=== PATIENT | male | born 1945 | race Caucasian/White ===

== ENCOUNTER 2019-04-27 12:35 | Day surgery (SDC) | payer MEDICARE ==
[~2019-04-27] VITALS: Ht 188 cm; Wt 108.9 kg
[~2019-04-27 12:35] MED LIST: ATOR10TA66 PO; ENAL20TA PO; FAMO20TA3 PO; HYDR12.56 PO; LORA10TA7 PO; OMEP20CA12 PO; [UNRECOGNIZED DRUG - CODE] PO
[2019-04-27 12:40] VITALS: BP 154/93
[2019-04-27] MEDS ORDERED: NS IV 500 ML 500 ML ONE (12:40)
[2019-04-27] MEDS ORDERED: NS IV 500 ML 500 ML IV PRN (12:42)
[2019-04-27] MEDS ORDERED: LIDOCAINE JELLY 2% 6 ML SYRINGE MM PRN (12:45)
[2019-04-27] MEDS ORDERED: fentaNYL INJECTION 100 MCG/2 ML AMP IVP ONE (12:45)
--- NOTE | 2019-04-27 12:50 | Conscious Sedation/ASA ---
Conscious Sedation Pre-Proced Time 12:30 ASA Score 2 For ASA 3 and 4: Consider anesthesia and medical clearance. Also, for patients with a history of failed moderate sedation consider anesthesia. Airway Lungs Heart ASA score ASA 1: a normal healthy patient ASA 2: a patient with a mild systemic disease (mid diabetes, controlled hypertension, obesity ASA 3: a patient with a severe systemic disease that limits activity (angina, COPD, prior Myocardial infarction) ASA 4: a patient with an incapacitating disease that is a constant threat to life (CHF, renal failure) ASA 5: a moribund patient not expected to survive 24 hrs. (ruptured aneurysm) ASA 6: a declared brain- patient whose organs are being harvested. For emergent operations, add the letter E after the classification Mallampati Classification Grade 2 Sedation Plan Analgesia, Amnesia, Plan communicated to team members, Discussed options with patient/fam, Discussed risks with patient/fam The patient is an appropriate candidate to undergo the planned procedure, sedation, and anesthesia. The patient immediately re-assessed prior to indication. LAUREN ERWIN MD Apr 27, 2019 12:50
--- NOTE | 2019-04-27 12:51 | Progress Note-Pre Operative ---
Pre-Operative Progress Note H&P Reviewed The H&P was reviewed, patient examined and no changes noted. Date Seen by Provider: Apr 27, 2019 Time Seen by Provider: 12:30 Date H&P Reviewed: Apr 27, 2019 Time H&P Reviewed: 12:30 Pre-Operative Diagnosis: screening o LAUREN ERWIN MD Apr 27, 2019 12:51
--- NOTE | 2019-04-27 12:53 | Discharge Inst-Surgical ---
D/C Lap Instructions-KIDO New, Converted, or Re-Newed RX: RX on Chart Follow Up Activity as tolerated High Fiber Diet 25g or more per day Avoid Alcohol, Caffeine, Spicy [place] and Acid foods. Drink 64 fluid oz or more of fluids per day. Symptoms to Report: Fever over 101 degree F, Nausea/Vomiting If any problems/questions: Contact your physician or go to Emergency Room LAUREN ERWIN MD Apr 27, 2019 12:53
[2019-04-27] MEDS ORDERED: HYDROcodone/APAP 5 MG/325 MG (LORTAB) TAB PO PRN (13:00)
[2019-04-27] MEDS ORDERED: morphine INJ 10 MG/ML 1ML (SYR OR VIAL) IVP PRN ×2 (13:00)
[2019-04-27] MEDS ORDERED: ONDANSETRON 4 MG/2 ML (SDV) Z0FRAN IVP PRN (13:00)
[2019-04-27] MEDS ORDERED: ACETAMINOPHEN 325 MG TABLET PO PRN (13:00)
[2019-04-27] MEDS ORDERED: MIDAZOLAM 2 MG/2 ML (VERSED) VIAL ONE ×5 (14:02→15:02)
[2019-04-27] MEDS ORDERED: fentaNYL INJECTION 100 MCG/2 ML AMP ONE (14:02)
[2019-04-27] MEDS ORDERED: LIDOCAINE JELLY 2% 6 ML SYRINGE ONE (14:03)
[2019-04-27] MEDS: MIDAZOLAM 2 MG/2 ML (VERSED) VIAL IVP ONE ×2 (14:40→14:55)
[2019-04-27 15:51] VITALS: BP 143/74
[2019-04-27 16:00] VITALS: BP 137/73
--- NOTE | 2019-04-27 16:11 | Progress Note-Post Operative ---
Post-Operative Progess Note Surgeon (s)/Ice Platform Supervisor (s) Surgeon LAUREN ERWIN MD Ice Platform Supervisor: none Pre-Operative Diagnosis screening colo Post-Operative Diagnosis mild chronic stage 2 ext and int hemorrhoids. Procedure & Operative Findings Date of Procedure 04/27/19 Procedure Performed/Findings colonoscopy Anesthesia Type cs Estimated Blood Loss Estimated blood loss (mL): minimal Specimens/Packing Specimens Removed none LAUREN ERWIN MD Apr 27, 2019 16:11
--- NOTE | 2019-04-28 00:07 | OPERATIVE REPORT ---
DATE OF SERVICE: 04/27/2019 ATTENDING PRIMARY CARE PHYSICIAN: Dr. Ritu Vincent. PREOPERATIVE DIAGNOSIS: Left lower quadrant abdominal pain. POSTOPERATIVE DIAGNOSES: Mild, chronic stage II external and internal hemorrhoids, slightly enlarged prostate gland. No palpable masses or nodules. There was a relatively poor prep; however, with irrigation, we were able to identify the majority of the colon. There were no polyps or any neoplasms identified as well as no mucosal inflammatory changes. PROCEDURE: Colonoscopy. SURGEON: Lauren Erwin MD ANESTHESIA: Conscious sedation. ESTIMATED BLOOD LOSS: Minimal. FINDINGS: Mild, chronic stage II external and internal hemorrhoids, slightly enlarged prostate gland. No palpable masses or nodules. There was a relatively poor prep; however, with irrigation, we were able to identify the majority of the colon. There were no polyps or any neoplasms identified as well as no mucosal inflammatory changes. DISPOSITION: The patient tolerated the procedure well. INDICATIONS: The patient is a 73-year-old male in need of a colonoscopy. His last colonoscopy was 10 years ago and he believes this to be normal. He does report that he has had some symptoms including left lower quadrant abdominal pain, which is exacerbated by movement such is sitting for long periods of time as well as exercise. He believes that this has been occurring for the past 6 months. He does not report any red blood per rectum nor any dark tarry stools. He does report some occasional constipation as well as hard well-formed stools. DESCRIPTION OF PROCEDURE: The patient was brought to the endoscopy suite, laid in the left lateral decubitus position. After adequate IV pain and sedative medications and conscious sedation anesthesia, a digital rectal examination was performed. Mild, chronic stage II external and internal hemorrhoids were identified, which are not actively edematous nor inflamed and no bleeding. Normal sphincter tone was felt and no palpable masses. Prostate gland was palpable and appeared slightly enlarged; however, no masses or nodules. The endoscope was then intubated to the anus and rectum gently insufflated. The endoscope was then advanced through the sigmoid colon where no diverticulosis identified. There was also no mucosal inflammatory change to indicate any inflammatory bowel disease. The endoscope was then advanced to the remainder of the descending, transverse and ascending colon to the cecum. These segments were normal. The endoscope was then slowly withdrawn while taking a second look and suctioning residual air with no additional findings. The patient tolerated the procedure well. We will recommend necessary lifestyle and diet accommodation including incorporation of a high fiber diet with at least 30 grams of fiber per day as well as significant amounts of water to promote soft stools on a daily basis. We feel that the majority of his lower abdominal crampy pain is due to constipation and abdominal distention related to this. With softer stools and evacuation of colon and less pressure exerted within the sigmoid colon and rectum. He should have symptomatic relief. No polyps identified and he does not need another colonoscopy for another 10 years; however, sooner if he becomes symptomatic. Job ID: [id number] DocumentID: [id number] Dictated Date: 04/27/2019 15:22:23 Concrete Vault Maker Date: 04/28/2019 00:06:34 Dictated By: LAUREN ERWIN MD
== END 2019-04-27 16:30 | disposition home or self-care (01) ==
LOC: ENDO 12:35
PROVIDERS: ATTEND Surgery
DX: K64.1 Second degree hemorrhoids (principal); N40.0 Benign prostatic hyperplasia without lower urinary tract symptoms

== ENCOUNTER → 2019-08-08 | Outpatient (CLI) | payer MEDICARE ==
[~2019-08-08] MED LIST changes: -OMEP20CA12 PO; +OMEP20CA13 PO
--- NOTE | 2019-08-08 08:40 | Diagnostic Imaging Report ---
PROCEDURE: US Hepatic (Liver). TECHNIQUE: Multiple real-time grayscale images were obtained over the right upper quadrant in various projections. INDICATION: Elevated liver enzymes. COMPARISON: None. TECHNIQUE: Grayscale and Doppler ultrasound performed in the right upper quadrant of the abdomen to evaluate the liver and gallbladder. FINDINGS: The liver is normal in size and shape. The liver echogenicity is increased. There are no focal lesions. No intrahepatic biliary dilatation is present. The common bile duct is not dilated and measures 4 mm. The main portal vein is hepatopedal. There is no evidence of cholelithiasis, gallbladder wall thickening or pericholecystic fluid. Sonographic Julian's sign is negative. The visualized portion of the head of the pancreas are within normal limits. The body and tail of the pancreas are not well visualized due to overlying bowel gas. The right kidney measures approximately 11.3 cm in length and demonstrates multiple simple appearing cysts, the largest measuring up to 3.5 cm. There is no hydronephrosis. IMPRESSION: 1. Hepatic steatosis. No focal liver lesions seen. 2. Normal-appearing gallbladder. 3. Simple appearing right renal cysts. Dictated by: Dictated on workstation # [id number]
== END ==
LOC: RAD 07:42
PROVIDERS: ATTEND Nurse Practitioner Family
DX: K76.0 Fatty (change of) liver, not elsewhere classified (principal); N28.1 Cyst of kidney, acquired
CPT/HCPCS: 76705

== ENCOUNTER 2020-03-05 06:59 | Outpatient (RCR) | payer MEDICARE | END 2020-06-03 | LOC: FS 06:59 | PROVIDERS: ATTEND Family Medicine | DX: Z02.89 Encounter for other administrative examinations (principal) ==

== ENCOUNTER → 2020-03-05 | Outpatient (CLI) | payer MEDICARE ==
[~2020-03-05] MED LIST changes: -OMEP20CA13 PO; +OMEP20CA18 PO
== END ==
LOC: LAB FS 09:08
PROVIDERS: ATTEND Family Medicine
DX: E78.5 Hyperlipidemia, unspecified (principal)

== ENCOUNTER → 2020-06-28 | Outpatient (CLI) | payer MEDICARE ==
--- NOTE | 2020-06-28 09:52 | Diagnostic Imaging Report ---
PROCEDURE: CT head without contrast. TECHNIQUE: Multiple contiguous axial images were obtained through the brain without the use of intravenous contrast. Auto Exposure Controls were utilized during the CT exam to meet ALARA standards for radiation dose reduction. INDICATION: Left-sided facial droop for 6 days. No prior studies are available for comparison. Ventricles and sulci are prominent consistent with cerebral atrophy. No sulcal effacement or midline shift is detected. No acute intra-axial or extra-axial hemorrhage is detected. Cisterns are patent. The visualized paranasal sinuses demonstrate mucosal thickening involving multiple ethmoid air cells as well as the frontal sinus and right maxillary sinus. IMPRESSION: 1. Age-related atrophy. No acute intracranial process is detected. 2. Paranasal sinus mucosal disease. Dictated by: Dictated on workstation # [id number]
== END ==
LOC: RAD FS 08:57
PROVIDERS: ATTEND Family Medicine
DX: J32.9 Chronic sinusitis, unspecified (principal); R29.810 Facial weakness
CPT/HCPCS: 70450

== ENCOUNTER → 2020-09-06 | Outpatient (CLI) | payer MEDICARE ==
[~2020-09-06] MED LIST changes: -ENAL20TA PO; +ENAL20TA16 PO
[2020-09-06 08:38] LABS: CHLORIDE 104 MMOL/L (98-107); POTASSIUM 4.2 MMOL/L (3.6-5.0); SODIUM 141 MMOL/L (135-145)
[2020-09-06 08:39] LABS: ALANINE AMINOTRANSFERASE 28 U/L (0-55); ALBUMIN 4.2 GM/DL (3.2-4.5); ALKALINE PHOSPHATASE 57 U/L (40-136); BILIRUBIN,TOTAL 1.4 MG/DL (0.1-1.0); BUN/CREATININE RATIO 23; CALCIUM 9.4 MG/DL (8.5-10.1); CARBON DIOXIDE 27 MMOL/L (21-32); CREATININE SERUM 1.01 MG/DL (0.60-1.30); GFR ESTIMATED > 60; GLUCOSE 114 MG/DL (70-105)
[2020-09-06 15:17] LABS: CHOLESTEROL 125 MG/DL (< 200); HDL CHOLESTEROL 33 MG/DL (40-60); TRIGLYCERIDES 142 MG/DL (<150); VLDL CHOLESTEROL 28 MG/DL (5-40)
== END ==
LOC: LAB FS 07:44
PROVIDERS: ATTEND Family Medicine
DX: E78.5 Hyperlipidemia, unspecified (principal)
CPT/HCPCS: 36415; 80053; 80061

== ENCOUNTER → 2021-03-18 | Outpatient (CLI) | payer MEDICARE ==
[2021-03-18 08:40] LABS: ALANINE AMINOTRANSFERASE 27 U/L (0-55); ALKALINE PHOSPHATASE 63 U/L (40-136); BILIRUBIN,TOTAL 1.7 MG/DL (0.1-1.0); BUN/CREATININE RATIO 22; CALCIUM 9.2 MG/DL (8.5-10.1); CARBON DIOXIDE 26 MMOL/L (21-32); CHLORIDE 102 MMOL/L (98-107); CREATININE SERUM 0.99 MG/DL (0.60-1.30); GFR ESTIMATED > 60; GLUCOSE 110 MG/DL (70-105); POTASSIUM 4.2 MMOL/L (3.6-5.0); SODIUM 140 MMOL/L (135-145); TOTAL PROTEIN 7.1 GM/DL (6.4-8.2)
[2021-03-18 15:07] LABS: CHOLESTEROL 125 MG/DL (< 200); HDL CHOLESTEROL 36 MG/DL (40-60); TRIGLYCERIDES 116 MG/DL (<150); VLDL CHOLESTEROL 23 MG/DL (5-40)
== END ==
LOC: LAB FS 07:24
PROVIDERS: ATTEND Family Medicine
DX: E78.5 Hyperlipidemia, unspecified (principal)
CPT/HCPCS: 36415; 80053; 80061

== ENCOUNTER → 2021-03-25 | Outpatient (CLI) | payer MEDICARE ==
--- NOTE | 2021-03-25 09:59 | Diagnostic Imaging Report ---
INDICATION: ABNORMAL RESULTS OF LIVER FUNCTION TECHNIQUE: Multiple grayscale sonographic images were obtained of the right upper quadrant of the abdomen. CORRELATION STUDY: None FINDINGS: LIVER: There is increased echotexture within the visualized portions of the liver. There is normal, hepatopedal direction of flow within the main portal vein. Liver length 18 cm. GALLBLADDER: The gallbladder demonstrates no definitive shadowing gallstones. No abnormal gallbladder wall thickening or pericholecystic fluid. COMMON BILE DUCT: Largely obscured by overlying bowel gas. No overt bile duct dilatation. PANCREAS: Largely obscured by overlying bowel gas. AORTA/IVC: Not well visualized. RIGHT KIDNEY: 12.3 x 6.7 x 7.2 cm. Multiple hypoechoic masses compatible with cysts. Largest at 3.2 x 2.9 x 2.5 cm. OTHER: None. IMPRESSION: 1. Likely hepatic steatosis. 2. Multiple right renal cysts. Dictated by: Dictated on workstation # [id number]
== END ==
LOC: RAD FS 08:33
PROVIDERS: ATTEND Family Medicine
DX: K76.0 Fatty (change of) liver, not elsewhere classified (principal); N28.1 Cyst of kidney, acquired; R94.5 Abnormal results of liver function studies
CPT/HCPCS: 76705

== ENCOUNTER → 2021-04-25 | Outpatient (CLI) | payer MEDICARE ==
[2021-04-25 07:48] LABS: HEMATOCRIT 45 % (40-54); MEAN CORPUSCULAR HEMOGLOBIN 31 PG (25-34); MEAN CORPUSCULAR VOLUME 93 FL (80-99); WHITE BLOOD COUNT 9.4 10^3/uL (4.3-11.0)
[2021-04-25 07:49] LABS: BASOPHILS # (AUTO) 0.1 10^3/uL (0.0-0.1); BASOPHILS % (AUTO) 1 % (0-10); EOSINOPHILS # (AUTO) 0.5 10^3/uL (0.0-0.3); EOSINOPHILS % (AUTO) 5 % (0-10); LYMPHOCYTES # (AUTO) 2.7 X 10^3 (1.0-4.0); LYMPHOCYTES % (AUTO) 29 % (12-44); MEAN CORPUSCULAR HGB CONC 33 G/DL (32-36); MEAN PLATELET VOLUME 9.2 FL (7.4-10.4); MONOCYTES # (AUTO) 0.9 X 10^3 (0.0-1.0); MONOCYTES % (AUTO) 10 % (0-12); NEUTROPHILS # (AUTO) 5.2 X 10^3 (1.8-7.8); NEUTROPHILS % (AUTO) 55 % (42-75); PLATELET COUNT 192 10^3/uL (130-400)
[2021-04-25 08:15] LABS: ALBUMIN 3.9 GM/DL (3.2-4.5); BILIRUBIN,DIRECT 0.2 MG/DL (0.0-0.3); BILIRUBIN,TOTAL 1.2 MG/DL (0.1-1.0); TOTAL PROTEIN 6.8 GM/DL (6.4-8.2)
== END ==
LOC: LAB FS 07:26
PROVIDERS: ATTEND Family Medicine
DX: R94.5 Abnormal results of liver function studies (principal)
CPT/HCPCS: 36415; 80076; 85025

== ENCOUNTER → 2021-05-28 | Outpatient (CLI) | payer MEDICARE ==
--- NOTE | 2021-05-28 14:15 | Diagnostic Imaging Report ---
Indication: Left knee pain 3 views of the left knee shows no fracture, dislocation or other acute abnormality. There is narrowing of the medial compartment with minimal spurring medially. There is mild narrowing and moderate spurring of the patella. There is a small effusion. IMPRESSION: There are [id number] degenerative changes present with no acute bony abnormality seen. Dictated by: Dictated on workstation # [id number]
== END ==
LOC: RAD FS 13:06
PROVIDERS: ATTEND Nurse Practitioner
DX: M17.12 Unilateral primary osteoarthritis, left knee (principal)
CPT/HCPCS: 73562

== ENCOUNTER → 2021-09-09 | Outpatient (CLI) | payer MEDICARE | LOC: LAB FS 07:40 | PROVIDERS: ATTEND Family Medicine | DX: Z53.9 Procedure and treatment not carried out, unspecified reason (principal) ==

== ENCOUNTER → 2022-04-01 | Outpatient (CLI) | payer MEDICARE ==
[2022-04-01 09:33] LABS: POTASSIUM 4.1 MMOL/L (3.6-5.0)
[2022-04-01 09:34] LABS: ALBUMIN 4.1 GM/DL (3.2-4.5); BILIRUBIN,TOTAL 1.8 MG/DL (0.1-1.0); CALCIUM 9.2 MG/DL (8.5-10.1); CREATININE SERUM 0.99 MG/DL (0.60-1.30)
== END ==
LOC: LAB FS 07:30
PROVIDERS: ATTEND Family Medicine
DX: E78.5 Hyperlipidemia, unspecified (principal); I10 Essential (primary) hypertension
CPT/HCPCS: 36415; 80053; 80061

== ENCOUNTER → 2022-09-26 | Outpatient (CLI) | payer MEDICARE ==
[2022-09-26 09:30] LABS: CREATININE SERUM 1.07 MG/DL (0.60-1.30); POTASSIUM 4.1 MMOL/L (3.6-5.0)
[2022-09-26 09:31] LABS: ALBUMIN 3.9 GM/DL (3.2-4.5); BILIRUBIN,TOTAL 1.2 MG/DL (0.1-1.0); CALCIUM 9.1 MG/DL (8.5-10.1); TOTAL PROTEIN 7.3 GM/DL (6.4-8.2)
== END ==
LOC: LAB FS 08:40
PROVIDERS: ATTEND Family Medicine
DX: E78.5 Hyperlipidemia, unspecified (principal)
CPT/HCPCS: 36415; 80053; 80061

== ENCOUNTER 2023-08-21 10:00 | Inpatient (IN) | payer MEDICARE ==
[~2023-08-21] VITALS: Ht 185.5 cm; Wt 106.8 kg
[~2023-08-21 10:00] MED LIST changes: +ENAL-70 PO; -ENAL20TA16 PO; +FAMO-356 PO; -FAMO20TA3 PO
--- OUTSIDE RECORDS SUMMARY | 2023-08-21 11:42 | XMS REPORT | Clinical Summary ---
Author Author [facility] Organization [facility] Address Unknown Phone Unavailable Care Team Providers Care Steeple Jack Name Role Phone Efra Echevarria MD Unavailable Unavailable Efra Echevarria MD PCP Unavailable Source Comments Some departments are not documenting in the electronic medical record. If you do not see the information that you expected, contact Release of Information in the Health Information Management department at [phone] for further assistance in locating additional records.[facility] Allergies No known active allergies Medications Medication Sig Dispensed Refills Start Date End Date Status dplul-6s-nds-epa-fish oil-D3 (FISH OIL-VIT D3) 360 mg-1,200 mg -1,000 unit cap Take by mouth. 0 Acti ve enalapril (VASOTEC) 20 mg tablet Take 20 mg by mouth daily. [address](+) (PRILOSEC) 20 mg capsule Take 20 mg by mouth daily. 0 Active famotidine (PEPCID) 20 mg tablet Take 20 mg by mouth twice daily. 0 Active brimonidine (ALPHAGAN P) 0.15 % ophthalmic solution 1 Drop twice daily. 0 Active simvastatin (ZOCOR) 40 mg tablet Take 20 mg by mouth at bedtime daily. 0 Active loratadine (CLARITIN) 10 mg tablet Take 10 mg by mouth daily. 0 Active finasteride (PROSCAR) 5 mg tablet Take 5 mg by mouth daily. 0 Active Active Problems Problem Noted Date Diagnosed Date Back pain 02/02/2015 Medical History Medical History Date Comments Convulsion (HCC) Arthritis Hearing problem Stomach problems Back pain Family History Medical History Relation Name Comments Heart Disease Father Cancer Mother Relation Name Status Comments Father Mother Social History Tobacco Use Types Packs/Day Years Used Date Smoking Tobacco: Former Alcohol Use Standard Drinks/Week Comments Yes 0 (1 standard drink = 0.6 oz pur e alcohol) Sex and Gender Information Value Date Recorded Sex Assigned at Not on file Gender Identity Not on file Sexual Orientation Not on file Obstetrics History Last Filed Vital Signs Vital Sign Reading Time Taken Comments Blood Pressure 143/89 02/02/2015 9:48 AM CDT Pulse 86 02/02/2015 9:48 AM CDT Temperature 36.3 C (97.4 F) 02/02/2015 9:48 AM C DT Respiratory Rate 16 02/02/2015 9:48 AM CDT Oxygen Saturation - - Inhaled Oxygen Concentration - - Weight 99.2 kg (218 lb 9.6 oz) 02/02/2015 9:48 AM CDT Height 185.4 cm (6' 1") 02/02/2015 9:48 AM CDT Body Mass Index 28.84 02/02/2015 9:48 AM CDT Plan of Treatment Health Maintenance Due Date Last Done Comments MEDICARE ANNUAL WELLNESS VISIT 1945 COVID-19 VACCINE (#1) 02[birth year]18/1946 DTAP/TDAP VACCINES (1 - Tdap) 1961 HEPATITIS C SCREENING 1961 PHYSICAL (COMPREHENSIVE) EXAM 1961 SHINGLES RECOMBINANT VACCINE (1 of 2) 1993 PNEUMOCOCCAL VACCINE 65+ YRS (1 - PCV) 2008 ADVANCE CARE PLANNING DISCUSSION AND DOCUMENTATION 11/2022 DEPRESSION SCREENING 11/02/2022 INFLUENZA VACCINE (#1) 2023 Care Teams Steeple Jack Relationship Specialty Start Date End Date Efra Echevarria MD PCP - General Gastroenterology 07/10/14 Efra Echevarria MD Gastroenterology 06/30/14
--- OUTSIDE RECORDS SUMMARY | 2023-08-21 11:42 | XMS REPORT | Summary of Care ---
Author Author [place]. com[employer] 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 PT NEEDS TO BE SCHEDULED ON A DAY WHEN AW/MP ARE HERE TOGETHER-DIFF PT Mary Sánchez ARNP [place] [address] [facility] [address] [place] [address] Referral ID Status Reason Start Date Expiration Date V isits Requested Visits Authorized [id number] Closed [facility] to Schedule 07/13/2023 08/12/2024 1 1 Reason for Visit * MRI (Routine) - Closed Specialty Diagnoses / Procedures Referred By Contac t Referred To Contact Radiology Diagnoses Lumbar pain Chronic bilateral low back pain, unspecified whether sciatica present Lumbar radiculopathy DDD (degenerative disc disease), lumbar Procedures MRI LUMBAR WO CONTRAST LVM FOR JARROD WRIGHT TO CALL US BACK TO SCHEDULE. PT NEEDS TO BE SCHEDULED ON A DAY WHEN AW/MP ARE HERE TOGETHER-DIFF PT Mary Sánchez ARNP [address] [place] [address] [facility] [place] [address] [place] [address] Referral ID Status Reason Start Date Expiration Date V isits Requested Visits Authorized [id number] Closed [facility] to Schedule 07/13/2023 08/12/2024 1 1 Encounter Details Date Type Department Care Team Description 08/05/2023 9:49 AM CDT - 08/05/2023 11:59 PM CDT Hospital Encounter [facility] Imaging Services [place] [address] [phone] Mary Sánchez ARNP [address] [place] [address] Arrived Discharge Disposition: Home or Self Care Allergies No known active allergiesdocumented as of this encounter (statuses as of 08/06/2023) Medications Medication Sig Dispensed Refills Start Date End Date Status fexofenadine (SHAD) 180 mg tablet Take 180 mg by mouth daily. 0 09/08/2018 Active atorvastatin (LIPITOR) 10 mg tablet TAKE 1 TABLET BY MOUTH ONCE DAILY LATE IN THE DAY 30 Tablet 5 07/09/2018 Active fluticasone propionate (FLONASE) 50 mcg/spray [place], Suspension nasal inhaler USE 2 SPRAY(S) IN EACH NOSTRIL ONCE DAILY 16 Gram 5 11/09/2018 Active simvastatin (ZOCOR) 40 mg tablet Take 20 mg by mouth. 0 Acti ve loratadine (CLARITIN) 10 mg tablet Take 10 mg by mouth daily. 0 Active finasteride (PROSCAR) 5 mg tablet Take 5 mg by mouth daily. 0 Active famotidine (PEPCID) 20 mg tablet Take 20 mg by mouth daily. 0 Active enalapril (VASOTEC) 20 mg tablet 20 mg. 0 01/01/2023 Active DOCOSAHEXAENOIC ACID ORAL Take by mouth. 0 Active bicalutamide (CASODEX) 50 mg tablet 50 mg. 0 07/03/2022 Active leuprolide acetate (LUPRON DEPOT) 3 month IM syringe Inject 11.25 mg by intramuscular injection every 90 days. 0 Active diazePAM (Valium) 5 mg tabletIndications: Claustrophobia Take one tablet PO 45 minutes prior to MRI and one tablet PO at the time of MRI if needed. 2 Tablet 0 07/18/2023 Active brimonidine (ALPHAGAN) 0.2 % solution INSTILL 1 DROP INTO EACH EYE TWICE DAILY 0 Active hydroCHLOROthiazid e (HYDRODIURIL) 12.5 mg tablet TAKE 1 TABLET BY MOUTH ONCE DAILY DIRECTED 0 04/24/2023 Active tamsulosin (FLOMAX) 0.4 mg capsule Take 1 Capsule by mouth daily. 0 Active Hospital, Clinic, or Other Facility Administered Medication Ordered Dose Route Frequency Start Date End Date Status sodium chloride 0.9% vial - DILUENTIndications :Lumbar radiculopathy 2 mL See Instruct SEE ADMIN INSTRUCTIONS 07/23/2023 Active documented as of this encounter (statuses as of 08/06/2023) Active Problems Problem Noted Date Diagnosed Date EMILE on CPAP 04/27/2017 Osteoarthritis of left knee 10/28/2011 Needs flu shot 08/27/2010 Fungal toenail infection 12/01/2008 Curvature of the penis 12/01/2008 Sleep apnea 08/22/2008 Essential hypertension, benign Pure hypercholesterolemia Esophageal reflux documented as of this encounter (statuses as of 08/06/2023) Immunizations Name Administration Dates Next Due INFLUENZA VACCINE QUADRIVALE NT 3 YR UP PF IM 07/29/2017,08/01/2014 Influenza Seasonal Unspecifi ed Formulation IM 08/21/2004 Influenza Vaccine High Dose 65+ Yrs IM 8,07/22/2016,07/21/2015 Influenza Vaccine Split 3+ Yrs IM 08/27/2010 Pneumococcal 13-valent Conjugate Vaccine 015 Pneumococcal Polysaccharide Vaccine 23-Valent IM 03/04/2017 documented as of this encounter Social History Tobacco Use Types Packs/Day Years Used Date Smoking Tobacco: Former Cigarettes Q uit: 11/02/1969 Smokeless Tobacco: Never Alcohol Use Standard Drinks/Week Comments No 0 (1 standard drink = 0.6 oz pur e alcohol) Sex and Gender Information Value Date Recorded Sex Assigned at Not on file Gender Identity Not on file Sexual Orientation Not on file documented as of this encounter Plan of Treatment Upcoming Encounters Date Type Department Care Team Description 08/11/2023 10:20 AM CDT Office Visit [facility] [address] [phone] Mary áSnchez ARNP [address] [place] [address] [address] [place] [phone] Health Maintenance Due Date Last Done Comments Traditional Medicare (ACO) A nnual Wellness Visit 1964 FIT-DNA Q 3 years 1988 FIT/FOBT Q 1 year 1988 Flex Sig/CT Colonography Q 5 years 1988 ZOSTER VACCINE (2 of 2) 07/28/2019 06/02/2019 COVID-19 Vaccine (6 - Modern a series) 02/10/2023 10/12/2022, 05/22/2022, 08/27/2021, Additional history exists INFLUENZA VACCINE (#1) 2023 2, 07/17/2021, 07/17/2021, Additional history exists DTAP/TDAP/TD VACCINES (2 - T d or Tdap) 02/09/2024 02/08/2014, 11/02/1992 COLORECTAL SCREENING 05/30/2024 05/30/2014, 05/30/20 14 Colorectal Cancer Screening 05/30/2024 PNEUMOCOCCAL VACCINE 65+ YEARS Completed 0 03/04/2017, 05/22/2016, 07/31/2015, Additional history exists documented as of this encounter Procedures Procedure Name Priority Date/Time Associated Diagnosis Comments MRI LUMBAR WO CONTRAST Routine 08/05/2023 10:35 AM CDT Lumbar pain Chronic bilateral low back pain, unspecified whether sciatica present Lumbar radiculopathy DDD (degenerative disc disease), lumbar documented in this encounter Results * MRI LUMBAR WO CONTRAST (08/05/2023 10:35 AM CDT) Anatomical Region Laterality Modality Spine Magnetic Resonan ce 08/05/2023 10:4 5 AM CDT Narrative 08/05/2023 10:51 AM CDT MRI OF THE LUMBAR SPINE WITHOUT CONTRAST INDICATION: Low back pain. Lumbar radiculopathy. Recent fall. COMPARISON: July 13, 2023.. TECHNIQUE: Multiplanar, multisequence MRI of the lumbar spine without intravenous contrast material. FINDINGS: Mild to moderate L5 superior endplate compression fracture with patchy marrow edema extending into the posterior elements more pronounced on the right. This appears acute to subacute. Slight retropulsion of the superior endplate contributes to spinal canal stenosis. There is dextrocurvature of the lumbar spine. Mild retrolisthesis at L5-S1. The remaining vertebral body heights are maintained. There is likely minimal right lower lumbar muscular strain. Severe degenerative disc disease at L5-S1 with additional mild multilevel disc desiccation and height loss. The conus terminates at the level of L1-L2. There is no significant clumping of the cauda equina nerve roots. Mild fatty atrophy of the lower lumbar paraspinous musculature. The visualized abdomen and pelvis are unremarkable. Mild to moderate lower thoracic spondylosis with effacement of the thecal sac at T11-T12 and T12-L1. L1-L2: Mild disc bulge. Mild to moderate bilateral facet hypertrophy. Minimal bilateral neural foraminal stenosis. Effacement of the thecal sac without significant spinal canal stenosis. Minimal effacement of the right lateral recess. L2-L3: Mild to moderate disc bulge. Moderate bilateral facet hypertrophy. Mild ligamentum flavum infolding. Mild bilateral neural foraminal stenosis greater on the left. No significant spinal canal stenosis. Minimal effacement of the left lateral recess. L3-L4: Mild to moderate disc bulge. Severe bilateral facet hypertrophy greater on the right. There is ligamentum flavum infolding. Mild bilateral neural foraminal stenosis greater on the right. Mild spinal canal stenosis. Partial effacement of the right lateral recess (series 6 image 8). Correlate for left L4 radicular symptoms. L4-L5: L5 vertebral compression fracture with slight retropulsion of the superior endplate. Moderate disc bulge. Severe bilateral facet hypertrophy. There is ligamentum flavum infolding. Mild right neural foraminal stenosis. Severe spinal canal stenosis with near complete obliteration of the spinal canal. L5-S1: Retrolisthesis. Moderate disc bulge. Moderate to severe bilateral facet hypertrophy. Severe bilateral neural foraminal stenosis more pronounced on the right with compression of the exiting right L5 nerve root. No significant spinal canal stenosis. Partial effacement of the right lateral recess. IMPRESSION: 1. Mild to moderate L5 superior endplate compression fracture with marrow edema, likely acute to subacute. Retropulsion of the superior endplate contributes to spinal canal stenosis at L4-L5 described below. 2. Moderate to severe lumbar spondylosis with multilevel spinal canal stenosis greatest of severe degree at L4-L5. 3. Multilevel neural foraminal stenosis greatest of severe degree at L5-S1. 4. Mild retrolisthesis at L5-S1. Electronically Signed By: Lauri Lopez MD, Signed On: 08/05/2023 10:51 AM, [email or web address] Procedure Note Lauri Lopez MD - 08/05/2023 MRI OF THE LUMBAR SPINE WITHOUT CONTRAST INDICATION: Low back pain. Lumbar radiculopathy. Recent fall. COMPARISON: July 13, 2023.. TECHNIQUE: Multiplanar, multisequence MRI of the lumbar spine without intravenous contrast material. FINDINGS: Mild to moderate L5 superior endplate compression fracture with patchymarrow edema extending into the posterior elements more pronounced on the right.This appears acute to subacute. Slight retropulsion of the superior endplate contributes to spinal canal stenosis. There is dextrocurvature of the lumbar spine. Mild retrolisthesis atL5-S1. The remaining vertebral body heights are maintained. There is likely minimalright lower lumbar muscular strain. Severe degenerative disc disease at L5-S1with additional mild multilevel disc desiccation and height loss. The conus terminates at the level of L1-L2. There is no significant clumping of thecauda equina nerve roots. Mild fatty atrophy of the lower lumbar paraspinous musculature. The visualized abdomen and pelvis are unremarkable. Mild to moderate lower thoracic spondylosis with effacement of the thecalsac at T11-T12 and T12-L1. L1-L2: Mild disc bulge. Mild to moderate bilateral facet hypertrophy.Minimal bilateral neural foraminal stenosis. Effacement of the thecal sacwithout significant spinal canal stenosis. Minimal effacement of the rightlateral recess. L2-L3: Mild to moderate disc bulge. Moderate bilateral facet hypertrophy.Mild ligamentum flavum infolding. Mild bilateral neural foraminal stenosisgreater on the left. No significant spinal canal stenosis. Minimal effacement of theleft lateral recess. L3-L4: Mild to moderate disc bulge. Severe bilateral facet hypertrophygreater on the right. There is ligamentum flavum infolding. Mild bilateralneural foraminal stenosis greater on the right. Mild spinal canal stenosis.Partial effacement of the right lateral recess (series 6 image 8). Correlate forleft L4 radicular symptoms. L4-L5: L5 vertebral compression fracture with slight retropulsion of the superior endplate. Moderate disc bulge. Severe bilateral facethypertrophy. There is ligamentum flavum infolding. Mild right neural foraminalstenosis. Severe spinal canal stenosis with near complete obliteration of thespinal canal. L5-S1: Retrolisthesis. Moderate disc bulge. Moderate to severe bilateralfacet hypertrophy. Severe bilateral neural foraminal stenosis more pronounced onthe right with compression of the exiting right L5 nerve root. No significantspinal canal stenosis. Partial effacement of the right lateral recess. IMPRESSION: 1. Mild to moderate L5 superior endplate compression fracture with marrowedema, likely acute to subacute. Retropulsion of the superior endplatecontributes to spinal canal stenosis at L4-L5 described below. 2. Moderate to severe lumbar spondylosis with multilevel spinal canalstenosis greatest of severe degree at L4-L5. 3. Multilevel neural foraminal stenosis greatest of severe degree atL5-S1. 4. Mild retrolisthesis at L5-S1. Electronically Signed By: Lauri Lopez MD, Signed On: 08/05/2023 10:51AM, EDUAR Mary Sánchez ARMIDA MR ORDERABLES documented in this encounter Visit Diagnoses Diagnosis Lumbar pain Lumbago Chronic bilateral low back pain, unspecified whether sciatica present Lumbar radiculopathy Thoracic or lumbosacral neuritis or radiculitis, unspecified DDD (degenerative disc disease), lumbar Degeneration of lumbar or lumbosacral intervertebral disc documented in this encounter Additional Health Concerns Assessment Noted Time PHQ-9 Depression Total Score: 1 03/08/20 18 3:00 PM CDT documented as of this encounter 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
--- NOTE | 2023-08-21 11:43 | Occupational Therapy Eval ---
OT Evaluation-General/PLF Medical Diagnosis Admission Date Medical Diagnosis: lumbar stenosis L4-5; s/p Lami Onset Date: Aug 20, 2023 Therapy Diagnosis Therapy Diagnosis: decreased ADL status, weakness Height/Weight Height (Feet): 6 Height (Inches): 2.00 Weight (Pounds): 240 Weight (Ounces): 0.0 Precautions Comments back brace; back precaution (5 lb lifting limit per pt) ARU staff reached out to Dr. Barlow's office for clarification on if pt is allowed to shower with dressing/drain showered, or if pt needs to complete sponge baths. Referral Physician: Hunter Referral Reason: Evaluation/Treatment Medical History Additional Medical History prostate cancer treated with seed radiation (no known metastases), GERD, unspecified disorder of lipoid metabolism, HTN Current History c/o low back pain in midline and significant b/l radiating leg pain x8 weeks. Closed compression fx of L5 lumbar vertebra; spinal stenosis of lumbar region, s/p L4-5 Lami 08/20/23. Pt transferred to [facility] 08/21/23 Social History Home: Single Level Entry Into Home: Ramp, Stairs Without Railing Steps Into Home: 1 (front) Pt usually goes into the house through the garage where a ramp was recently installed. ADL-Prior Level of Function SCALE: Activities may be completed with or without assistive devices. 8-Zhqpwqaxkw-hompbyg completes the activity by him/herself with no assistance from a helper. 5-Set-up or Clean-up Assistance-helper sets up or cleans up; patient completes activity. Seaside assists only prior to or following the activity. 4-Supervision or Touching Assistance-helper provides verbal cues and/or touching/steadying and/or contact guard assistance as patient completes activity. Assistance may be provided throughout the activity or intermittently. 3-Partial/Moderate Assistance-helper does LESS THAN HALF the effort. Seaside lifts, holds or supports trunk or limbs, but provides less than half the effort. 2-Substantial/Maximal Assistance-helper does MORE THAN HALF the effort. Seaside lifts or holds trunk or limbs and provides more than half the effort. 2-Svtkhldmh-dsjpxy does ALL the effort. Patient does none of the effort to complete the activity. Or, the assistance of 2 or more helpers is required for the patient to complete the activity. If activity was not attempted, code reason: 7-Patient Refused. 9-Not Applicable-not attempted and the patient did not perform the activity before the current illness, exacerbation or injury. 10-Not Attempted due to Environmental Limitations-(lack of equipment, weather restraints, etc.). 88-Not Attempted due to Medical Conditions or Safety Concerns. ADL PLOF Comments Pt used a walker or cane for the last couple months prior to surgery. Pt was independent with ADLS and functional mobility. Pt sleeps in a regular bed, and enjoys sitting in a wooden rocking chair. Self Care: Independent Functional Cognition: Independent DME/Equipment: Bath Chair, Shower, Tall Toilet Drive Self: Yes Leisure Interests: Pt enjoys watching tv and going out to eat with a friend. used to dias/fish OT Current Status Subjective Pt agreeable to OT Tx, states he had a good ride over with his daughter. Mental Status/Objective Patient Orientation: Person, Place, Time, Situation Attachments: Drains, Other-See Comments (back brace) Current Glasses/Contacts: Yes (reading) Hearing Aids: No Dentures/Partials: No Hand Dominance: Right Upper Extremity ROM WFL, BUE shoulder flexion to approx 160 Upper Extremity Coordination WFL Upper Extremity Sensation WFL Upper Extremity Strength grossly 4/5 ADL-Treatment Eating (QC): 6 Oral Hygiene (QC): 5 Shower/Bathe Self (QC): 3 (Assist required with RLE) Upper Body Dressing (QC): 3 (Assist with back brace) Lower Body Dressing (QC): 3 (assistance threading RLE) On/Off Footwear (QC): 3 (50% assist. Pt able to complete L sock using figure 4 method, assist with R.) Toileting Hygiene (QC): 3 Other Treatments OT evaluation complete. Pt provided information about PLOF and home set up and participated in UE screen. Pt stood from w/c, CGA, then CGA transfer to [facility]. VCs required for safe walker use. Pt's lunch arrived, pt able to eat and open containers independently. Post tx, pt in recliner, call light in reach and all needs met. Education OT Patient Education: Correct positioning, Energy conservation, Modified ADL techniques, Progress toward Goal/Update tx plan, Purpose of tx/functional activities, Rehab process Teaching Recipient: Patient Teaching Methods: Discussion Response to Teaching: Verbalize Understanding BIMS CAM BIMS Expression of Ideas and Wants: Without Difficulty Understanding Verbal Content: Understands Brief Interview/Mental Status: Yes IRF YADIRA BIMS: IRF YADIRA BIMS Response (Comments) Value Repitition of Three Words Three 3 Recalls Socks Yes, No Cue Required 2 Recalls Blue Yes, No Cue Required 2 Recalls Bed No, Could Not Recall 0 Year Correct 3 Month Accurate Within 5 Days 2 Day Correct 1 Total 13 Patient Normally Able to Recal: Current Session, Location of own room, Staff Names and faces, That he/she in a hsp Should Staff Asses. Mental St.: No Memory/Recall Ability: Current Season, Location of Own Room, Staff Names and Faces, That He/She in Hospitall CAM Mental Status Change/Baseline: 1 Inattention: 0 Disorganized thinkin Altered level of consciousness: 0 OT Training Program Manager Goals Retirement Goals Time Frame: Sep 11, 2023 Eating (QC): 6 Oral Hygiene (QC): 6 Toileting Hygiene (QC): 6 Shower/Bathe Self (QC): 5 Upper Body Dressing (QC): 6 Lower Body Dressing (QC): 6 On/Off Footwear (QC): 6 Additional Goals: 1-Demonstrate ADL Tasks, 2-Verbalize Understanding, 3- ImproveStrength/Romeo 1=Demonstrate adherence to instructed precautions during ADL tasks. 2=Patient will verbalize/demonstrate understanding of assistive devices/modifications for ADL. 3=Patient will improve strength/tolerance for activity to enable patient to perform ADL's. OT Education/Plan Problem List/Assessment Assessment: Decreased Activ Tolerance, Decreased UE Strength, Impaired Funct Balance, Impaired I ADL's, Impaired Self-Care Skills Discharge Recommendations Plan/Recommendations: Continue POC Treatment Plan/Plan of Care Patient would benefit from OT for education, treatment and training to promote independence in ADL's, mobility, safety and/or upper extremity function for ADL's. Plan of Care: ADL Retraining, Functional Mobility, Group Exercise/Act as Ind, UE Funct Exercise/Act Treatment Duration: Sep 11, 2023 Frequency: At least 5 of 7 days/Wk (IRF) Estimated Hrs Per Day: 1.5 hours per day Agreement: Yes Rehab Potential: Good Time Start Time: 11:30 Stop Time: 12:15 DATE: Aug 21, 2023 Total Time Billed (hr/min): 75 Billed Treatment Time 1, EVM (30'), ADL (15') JOHAN CORDERO OT Aug 21, 2023 11:43
[2023-08-21 12:00] VITALS: BP 138/65
[2023-08-21] MEDS ORDERED: TMSL.4C PO (12:17)
[2023-08-21] MEDS ORDERED: [UNRECOGNIZED DRUG - CODE] PO (12:17)
[2023-08-21] MEDS ORDERED: ACET1TAB37 PO (12:25)
[2023-08-21] MEDS ORDERED: ACET500P24 PO (12:27)
[2023-08-21] MEDS ORDERED: guaiFENesin/CODEINE 10ML UDC PO PRN (12:30)
[2023-08-21] MEDS ORDERED: BISACODYL 10 MG SUPPOSITORY PR PRN (12:30)
[2023-08-21] MEDS ORDERED: DOCUSATE SODIUM 100 MG CAPSULE PO PRN (12:30)
[2023-08-21] MEDS ORDERED: LACTULOSE SYRUP 10GM/15ML 30ML UDC PO PRN (12:30)
[2023-08-21] MEDS ORDERED: diphenhydrAMINE 25 MG TABLET PO PRN (12:30)
[2023-08-21] MEDS ORDERED: Sodium Phosphate/Sodium Biphosphate ADULT enema PR PRN (12:30)
[2023-08-21] MEDS ORDERED: LOPERAMIDE 2 MG CAPSULE PO PRN (12:30)
[2023-08-21] MEDS ORDERED: BRIM5DRO3 OP (12:37)
[2023-08-21] MEDS ORDERED: ACHD5005 PO (12:37)
--- NOTE | 2023-08-21 12:55 | Physical Therapy Evaluation ---
PT Evaluation-General Medical Diagnosis Admission Date Aug 21, 2023 at 11:30 Medical Diagnosis: lumbar stenosis L4-5; s/p Lami Onset Date: Aug 20, 2023 Therapy Diagnosis Therapy Diagnosis: Lumbar stenosis L4-5; s/p lami Height/Weight Height (Feet): 6 Height (Inches): 2.00 Weight (Pounds): 240 Weight (Ounces): 0.0 Precautions back brace; back precaution (5 lb lifting limit per pt) Weight Bear Status Right Lower Extremity: Right Weight Bearing/Tolerated Left Lower Extremity: Left Weight Bearing/Tolerated Referral Physician: Hunter Reason for Referral: Evaluation/Treatment Medical History Additional Medical History Compression fx L5, lumbar stenosis, s/p L5 kyphoplasty and L4-L5 lami. prostate cancer treated with seed radiation (no known metastases), GERD, unspecified disorder of lipoid metabolism, HTN. Current History c/o low back pain in midline and significant b/l radiating leg pain x8 weeks. Closed compression fx of L5 lumbar vertebra; spinal stenosis of lumbar region, s/p L4-5 Lami 08/20/23. Pt transferred to [facility] 08/21/23 Please monitor and review medical chart. Social History Home: Single Level Current Living Status: Alone Entry Into Home: Ramp, Stairs Without Railing PT Steps Into Home: 1 (front) Prior Prior Level of Function SCALE: Activities may be completed with or without assistive devices. 0-Cdwqgurxhi-adubxnj completes the activity by him/herself with no assistance from a helper. 5-Set-up or Clean-up Assistance-helper sets up or cleans up; patient completes activity. [place] assists only prior to or following the activity. 4-Supervision or Touching Assistance-helper provides verbal cues and/or touch ing/steadying and/or contact guard assistance as patient completes activity. Assistance may be provided throughout the activity or intermittently. 3-Partial/Moderate Assistance-helper does LESS THAN HALF the effort. [place] lifts, holds or supports trunk or limbs, but provides less than half the effort. 2-Substantial/Maximal Assistance-helper does MORE THAN HALF the effort. [place] lifts or holds trunk or limbs and provides more than half the effort. 3-Skciakfwn-urlidx does ALL the effort. Patient does none of the effort to complete the activity. Or, the assistance of 2 or more helpers is required for the patient to complete the activity. If activity was not attempted, code reason: 7-Patient Refused. 9-Not Applicable-not attempted and the patient did not perform the activity before the current illness, exacerbation or injury. 10-Not Attempted due to Environmental Limitations-(lack of equipment, weather restraints, etc.). 88-Not Attempted due to Medical Conditions or Safety Concerns. Bed Mobility: 6 Transfers (B,C,W/C): 6 Gait: 6 Stairs: 6 Wheelchair Mobility: 6 Indoor Mobility (Ambulation): Independent Stairs: Independent Prior Devices Use: None, Orthotics/Prosthetics Prior Device Use: None PT Evaluation-Current Subjective Patient is 78 year old male who recently underwent back surgery following fall including L4-L5 Lami and L5 kyphoplasty. Patient states that he experienced GLF while at outpatient therapy resulting in low back injury. Patient states that prior to fall he had been experiencing progressively worsening BLE hip pain. Patient previously lived at home, alone and independent in all functional activity and driving. Patient states home has ramp and C[place]. Patient rates current pain 4/10, increasing as high as 8/10 with activity, mostly in low-back B and R hip/lateral thigh. Patient under back precautions s/p lami and on 5# lifting rx. Patient goal is to return home, alone and independent. Patient to benefit from PT intervention with individualized POC directed at achievement of maximum functional potential. Pain Section J - Health Conditions 1. Rarely or not at all 2. Occasionally 3. Frequently 4. Almost constantly 8. Unable to answer Pain Effect on Sleep: 3 Pain Interference with Therapy: 3 Pain Interference w/Day-to-Day: 3 Pt/Family Goals Return home independently. Objective Patient Orientation: Person, Place, Time, Situation ROM/Strength ROM Upper Extremities See OT eval ROM Lower Extremities lacking 15 deg ext BLE knee All other ROM WFL Strength Upper Extremities See OT eval Strength Lower Extremities Gross BLE 4-/5 Sensory Hand Dominance: Right Transfers Roll Left & Right (QC): 3 Sit to Lying (QC): 3 Lying to Sitting/Side of Bed(Q: 3 Sit to Stand (QC): 3 Chair/Xam-uk-Plwxw Xfer(QC): 3 Toilet Transfer (QC): 3 Car Transfer (QC): 3 Patient participated in functional transfer practice with use of FWW and adaptive railing focusing on improving performance, sequence, and safety with adherence to low back mobility precautions and improved AD management and safety. Patient perform transfers between surfaces of variable heights and compliance at variable distances and angles with use of FWW for improved future functional independence. Patient participated in functional bed mobility and repositioning practice focusing on improving efficiency and quality of functional task while adhering to low back precautions. Patient roll R<>L, supine <> sit and scoot laterally and vertically with CGA-SBA, presenting observable difficulty with functional task. Gait Does the Patient Walk?: Yes Mode of Locomotion: Walk Anticipated Mode of Locomotion: Walk Walk 10 feet (QC): 3 Walk 50 ft with 2 Turns(QC): 3 Walk 150 ft (QC): 3 Walking 10ft/uneven surface-QC: 3 Distance: 150' Gait Assistive Device: FWW Comments/Gait Description Patient participated in functional gait training with use of FWW focusing on maintaining COG/KEN, amb posture, stepping mechanics, and AD management, req Sun, achieving up to 150' on even surfaces and 10' of uneven surfaces. Wheelchair Training Does the Pt Use a Wheelchair?: No Wheel 50 ft with 2 turns (QC): 9 Wheel 150 ft (QC): 9 Type of Wheelchair: N/A Stairs #of Steps: 12 1 Step (curb) (QC): 3 4 Steps (QC): 3 12 Steps (QC): 3 Patient participated in functional stair training with use of B railing, asc/desc 12 stair steps with reciprocal pattern focusing on promoting independence and tolerance of functional task. Balance Sitting Static: Normal Sitting Dynamic: Good Standing Static: Poor Standing Dynamic: Fair Picking up an Object (QC): 88 Assessment/Needs Rehab Potential: Good PT Short Term Goals Short Term Goals Time Frame: Aug 28, 2023 Roll Left & Right: 5 Sit to lyin Lying to sitting on side of be: 5 Sit to stand: 5 Chair/zum-db-nygqy transfer: 5 Toilet transfer: 5 Car transfer: 5 Walk 10 feet: 5 Walk 50 feet with two turns: 5 Walk 150 feet: 5 Walking 10ft on uneven surface: 5 1 step (curb): 5 4 steps: 5 12 steps: 5 Picking up objects: 5 Does pt use a wc or scooter: No Wheel 50ft w/2 turns: 9 Wheel 150 feet: 9 Type: N/A PT Fdc Goals Merchandise Shopper Goals PT Fdc Goals Time Frame: Sep 04, 2023 Roll Left to Right (QC): 6 Sit to Lying (QC): 6 Lying-Sitting on Side/Bed(QC): 6 Sit to Stand (QC): 6 Chair/Miu-yu-Dakur Xfer(QC): 6 Toilet/Commode Transfer (QC): 6 Car Transfer (QC): 6 Does the Patient Walk: Yes Walk 10 feet (QC): 6 Walk 10ft-Uneven Surface(QC): 6 Walk 50ft with 2 Turns (QC): 6 Walk 150 ft (QC): 6 Does the Pt use WC or Scooter?: No Wheel 50 feet with 2 turns (QC: 9 Type: N/A Wheel 150 feet: 9 Type: N/A 1 Step (curb) (QC): 6 4 Steps (QC): 6 12 Steps (QC): 6 Picking up an Object (QC): 6 PT Plan Problem List Problem List: Activity Tolerance, Functional Strength, Safety, Balance, Gait, Transfer, Bed Mobility, ROM Treatment/Plan Treatment Plan: Continue Plan of Care Treatment Plan: Bed Mobility, Education, Functional Activity Romeo, Functional Strength, Group Therapy, Gait, Safety, Therapeutic Exercise, Transfers Treatment Duration: Aug 21, 2023 Frequency: At least 5 of 7 days/Wk (IRF) Estimated Hrs Per Day: 1.5 hours per day Patient and/or Family Agrees t: Yes Safety Risks/Education Patient Education: Gait Training, Transfer Techniques, Steps, Reviewed Precautions, Correct Positioning, Reviewed Don/Doff Brace Teaching Recipient: Patient Teaching Methods: Demonstration, Discussion Response to Teaching: Verbalize Understanding, Return Demonstration Discharge Recommendations Therapy Discharge Recommendati: Home & Family Time Time In: 1300 Time Out: 1430 DATE: Aug 21, 2023 Total Billed Treatment Time: 90 Total Billed Treatment 1 Session PT evaluation [id number] (15) PT/OT co/tx [id number] (45) PT Individual [id number] (30) 1EV 2FA 1NM 1EX 1GT BRODY LEON PT Aug 21, 2023 12:54
--- NOTE | 2023-08-21 13:02 | Progress Note ---
IGNACIO GARVEY 08/21/23 1302: Progress Note CC: back pain HPI: 78 year old male, here for recovery from a lumbar laminectomy on 08/20 for lumbar stenosis and a compression fracture on L5, with persistent lumbar radiculopathy. He has a history of prostate cancer- his surgery included a bone biopsy to check for metastasis to his spine. Still pending results. He is resting comfortably and denies any SOB or chest pain. He is currently still feeling pain in his right leg due to radiculopathy but otherwise comfortable. PMH: prostate cancer (dx Sep 2022, s/p radiation in [place]) HTN GERD PSH: lumbar laminectomy All: NKDA Meds: see med list SH: has two daughters in the room who live close by quit smoking in 1969, no EtOH or recreational drugs FH: father of stroke at age 51 mother of unknown GI cancer at 80 ROS: + radiculopathy in R leg, no SOB, no chest pain Labs/Imaging: MRI of lumbar spine showed L5 compression fracture and degenerative disc disease of lumbar spine Assessment: Lumbar radiculopathy HTN GERD Plan: Continue home meds PT/OT Pending biopsy results JEN HOPPER DO 08/21/23 1846: Supervisory-Addendum Brief Verification & Attestation Participated in pt care: history, MDM, physical Personally performed: exam, history, MDM, supervision of care Care discussed with: Medical Student Procedures: n/a Results interpretation: Verified all documentation Verification and Attestation of Medical Student E/M Service A medical student performed and documented this service in my presence. I reviewed and verified all information documented by the medical student and made modifications to such information, when appropriate. I personally performed the physical exam and medical decision making. Jen Hopper Aug 21, 2023,18:46 IGNACIO GARVEY Aug 21, 2023 13:02 JEN HOPPER DO Aug 21, 2023 18:46
--- NOTE | 2023-08-21 14:08 | Occupational Ther Daily Note ---
OT Current Status-Daily Note Subjective Pt agreeable to therapy tx. Rates pain 6/10 in R leg. Mental Status/Objective Patient Orientation: Normal For Age Attachments: Drains, Other-See Comments (back brace) ADL-Treatment Therapy Code Descriptions/Definitions Functional [place] Measure: 0=Not Assessed/NA 4=Minimal Assistance 1=Total Assistance 5=Supervision or Setup 2=Maximal Assistance 6=Modified [place] 3=Moderate Assistance 7=Complete IndependenceSCALE: Activities may be completed with or without assistive devices. 2-Ectlckxmox-kmaxxbe completes the activity by him/herself with no assistance from a helper. 5-Set-up or Clean-up Assistance-helper sets up or cleans up; patient completes activity. [place] assists only prior to or following the activity. 4-Supervision or Touching Assistance-helper provides verbal cues and/or touching/steadying and/or contact guard assistance as patient completes activity. Assistance may be provided throughout the activity or intermittently. 3-Partial/Moderate Assistance-helper does LESS THAN HALF the effort. [place] lifts, holds or supports trunk or limbs, but provides less than half the effort. 2-Substantial/Maximal Assistance-helper does MORE THAN HALF the effort. [place] lifts or holds trunk or limbs and provides more than half the effort. 2-Tmhmajxgt-vjdyqk does ALL the effort. Patient does none of the effort to complete the activity. Or, the assistance of 2 or more helpers is required for the patient to complete the activity. If activity was not attempted, code reason: 7-Patient Refused. 9-Not Applicable-not attempted and the patient did not perform the activity before the current illness, exacerbation or injury. 10-Not Attempted due to Environmental Limitations-(lack of equipment, weather restraints, etc.). 88-Not Attempted due to Medical Conditions or Safety Concerns. Other Treatment OT/PT cotreat due to skill of 2 clinicians required which a rehabilitation physician could not perform in order to coordinate UE/LEs, decrease fall risk, and due to pt's limitations in strength, activity tolerance, mobility/transfers, and pain. OT focused on UE placement, cues for sequencing and safety and ADLs, PT focused on LE placement, gross overall movement, transfers and mobility. Pt performed functional mobility/transfers, including mobility with FWW, steps, car transfer, bed mobility. Pt completed higher level balance task, completing "ladder golf", tossing game pieces with R hand in standing, then retrieving using cullet washer and walker. Pt completed x3 rounds of task, seated rest breaks between. Post tx, pt in therapy gym with PT, all needs met. Sit to stand min A, min A with mobility using FWW, bed mobility SBA, Car transfer min A. Pt required frequent VCs for safety and UE placement with transfers. Education OT Patient Education: Correct positioning, Energy conservation, Modified ADL techniques, Progress toward Goal/Update tx plan, Purpose of tx/functional activities, Rehab process Teaching Recipient: Patient Teaching Methods: Discussion Response to Teaching: Verbalize Understanding OT Usp Goals Usp Goals Time Frame: Sep 11, 2023 Acute change in mental status: 1 Inattention: 0 Disorganized thinkin Altered level of consciousness: 0 Eating (QC): 6 Oral Hygiene (QC): 6 Toileting Hygiene (QC): 6 Shower/Bathe Self (QC): 5 Upper Body Dressing (QC): 6 Lower Body Dressing (QC): 6 On/Off Footwear (QC): 6 Additional Goals: 1-Demonstrate ADL Tasks, 2-Verbalize Understanding, 3- ImproveStrength/Romeo 1=Demonstrate adherence to instructed precautions during ADL tasks. 2=Patient will verbalize/demonstrate understanding of assistive devices/modifications for ADL. 3=Patient will improve strength/tolerance for activity to enable patient to perform ADL's. OT Education/Plan Problem List/Assessment Assessment: Decreased Activ Tolerance, Decreased UE Strength, Impaired Funct Balance, Impaired I ADL's, Impaired Self-Care Skills Discharge Recommendations Plan/Recommendations: Continue POC Treatment Plan/Plan of Care Patient would benefit from OT for education, treatment and training to promote independence in ADL's, mobility, safety and/or upper extremity function for ADL's. Plan of Care: ADL Retraining, Functional Mobility, Group Exercise/Act as Ind, UE Funct Exercise/Act Treatment Duration: Sep 11, 2023 Frequency: At least 5 of 7 days/Wk (IRF) Estimated Hrs Per Day: 1.5 hours per day Agreement: Yes Rehab Potential: Good Time Start Time: 13:15 Stop Time: 14:00 DATE: Aug 21, 2023 Total Time Billed (hr/min): 45 Billed Treatment Time 1, FA 3 (45') curtis x45' JOHAN CRODERO OT Aug 21, 2023 14:08
[2023-08-21] MEDS: HYDROcodone/ACETAMINOPHEN 5 MG/325 MG TABLET PO PRN ×2 (15:03→20:08)
--- NOTE | 2023-08-21 18:54 | PM&R Post Admission Assessment ---
PM&R HP Date of Visit: Aug 21, 2023 Time of Visit: 14:00 History of Present Illness CC: Lumbar stenosis with compression fracture s/p surgery by Dr Barlow with residual right leg weakness c/w radiculopathy HPI: This is an 78yoWM clinic patient of Dr Vincent who presented from [facility] following an uncomplicated lumbar stenosis surgery s/p bone biopsy due to h/o prostate cancer but has had slow recovery and since he lives alone the decision was made to come to ARU for aggressive recovery with therapy. He uses CPAP. Pain is controlled. 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 He has a history of prostate cancer- his surgery included a bone biopsy to check for metastasis to his spine. Still pending results. He is resting comfortably and denies any SOB or chest pain. He is currently still feeling pain in his right leg due to radiculopathy but otherwise comfortable. PMH: prostate cancer (dx Sep 2022, s/p radiation in [place]) HTN GERD PSH: lumbar laminectomy All: NKDA Meds: see med list SH: has two daughters in the room who live close by quit smoking in 1969, no EtOH or recreational drugs FH: father of stroke at age 51 mother of unknown GI cancer at 80 ROS: + radiculopathy in R leg, no SOB, no chest pain Labs/Imaging: MRI of lumbar spine showed L5 compression fracture and degenerative disc disease of lumbar spine Assessment: Lumbar radiculopathy HTN GERD Plan: Continue home meds PT/OT Pending biopsy results Past Elqerao-Qnxqwa-Kwmczi Hx Past Med/Social Hx: Reviewed Nursing Past Med/Soc Hx, Reviewed and Corrections made Patient Social History Marrital Status: Employed/Student: retired Alcohol Use: Denies Use Smoking Status: Former Smoker Former Smoker, Quit: Apr 25, 1982 Recent Hopitalizations: No Past Medical History Surgeries: Orthopedic Respiratory: Sleep Apnea Currently Using CPAP: Yes Cardiac: Hypertension Gastrointestinal: Gastroesophageal Reflux Musculoskeletal: Arthritis, Chronic Back Pain Hearing Impairment: Hard of Hearing Cancer: Prostate Did You Recieve Any Treatments: Yes What Type of Treatment Did You: Radiation History of Blood Disorders: No Prior Level of Function Bed Mobility: 6 Transfers: 6 Gait: 6 Stairs: 6 Wheelchair Mobility: 6 Indoor Mobility (Ambulation): Independent Stairs: Independent Prior Devices Use: None, Orthotics/Prosthetics None Self Care: Independent Functional Cognition: Independent Drive Self: Yes Leisure Interests: Pt enjoys watching tv and going out to eat with a friend. used to dias/fish Current Level of Fuctioning Roll Left to Right: 3 Sit to Lyin Lying to Sitting/Side of Bed: 3 Sit to Stand: 3 Chair/Xxn-am-Sbdhk Xfer: 3 Car Transfer: 3 Does the Patient Walk: Yes Mode of Locomotion: Walk Anticipated Mode of Locomotion: Walk Walk 10 feet: 3 Walk 50 ft with 2 Turns: 3 Walk 150 ft: 3 Walking 10ft on uneven surface: 3 Gait Assistive Device: FWW Does the Pt Use a Wheelchair: No Wheel 50 ft with 2 turns: 9 Wheel 150 ft: 9 Type of Wheelchair: N/A #of Steps: 12 1 Step (curb): 3 4 Steps: 3 12 Steps: 3 Picking up an Object: 88 Eatin Oral Hygiene: 5 Shower/Bathe Self: 3 (Assist required with RLE) Upper Body Dressin (Assist with back brace) Lower Body Dressin (assistance threading RLE) On/Off Footwear: 3 (50% assist. Pt able to complete L sock using figure 4 method, assist with R.) Toileting Hygiene: 3 PM&R Allergy/Meds/Data Review Allergies Coded Allergies: No Known Drug Allergies (Unverified , 04/25/19) Home Medications Scheduled Acetaminophen (Tylenol Extra Strength), 500 MG PO DAILY Acetaminophen/Chlorpheniramine (Coricidin Hbp Cold & Flu Tab), 1 EACH PO DAILY Atorvastatin Calcium (Atorvastatin Calcium), 10 MG PO HS, (Reported) Brimonidine Tartrate (Brimonidine Tartrate), 1 DROP OP BID, (Reported) Docosahexaenoic Acid (Dha From Algae), 200 MG PO DAILY Enalapril Maleate (Enalapril Maleate), 20 MG PO BID, (Reported) Famotidine (Acid [place] (FAMOTIDINE)), 20 MG PO DAILY, (Reported) Hydrochlorothiazide (Hydrochlorothiazide), 12.5 MG PO DAILY, (Reported) Loratadine (Loratadine), 10 MG PO DAILY, (Reported) Lanagan-3S/Dha/Epa/Fish Oil (Fish Oil 1,200 mg Softgel), 1,200 MG PO BID, (Reported) Omeprazole (Omeprazole), 20 MG PO HS, (Reported) Tamsulosin HCl (Flomax), 0.4 MG PO DAILY Scheduled PRN Hydrocodone/Acetaminophen (Hydrocodone-Acetamin 5-325 mg), 1 TAB PO Q4H PRN for PAIN-MODERATE (5-7), (Reported) Current Medications Current Medications Reviewed Review of Systems Constitutional: see HPI, malaise, weakness EENTM: no symptoms reported Respiratory: no symptoms reported Cardiovascular: no symptoms reported Gastrointestinal: constipation Genitourinary: no symptoms reported Musculoskeletal: back pain Skin: no symptoms reported Psychiatric/Neurological: Depressed All Other Systems Reviewed Negative Unless Noted: Yes Physical Exam Physical Exam Vital Signs Vital Signs - First Documented 08/21/23 12:00 Temp 36.6 Pulse 83 Resp 18 B/P (MAP) 138/65 (89) Pulse Ox 96 O2 Delivery Room Air Capillary Refill : Height, Weight, BMI Height: 6'2.00" Weight: 240lbs. 0.0oz. [id number]; 30.36 BMI Method: General Appearance: No Apparent Distress, WD/WN, Chronically ill Eyes: Bilateral Eye Normal Inspection, Bilateral Eye PERRL HEENT: PERRL/EOMI, Normal ENT Inspection, Pharynx Normal Neck: Full Range of Motion, Normal Inspection, Non Tender, Supple, Carotid Bruit Respiratory: Chest Non Tender, Lungs Clear, Normal Breath Sounds, No Accessory Muscle Use, No Respiratory Distress Cardiovascular: Regular Rate, Rhythm, No Edema, No Gallop, No JVD, No Murmur, Normal Peripheral Pulses Gastrointestinal: Normal Bowel Sounds, No Organomegaly, No Pulsatile Mass, Non Tender, Soft Back: Normal Inspection, No CVA Tenderness, No Vertebral Tenderness Extremity: Normal Capillary Refill, Normal Inspection, Normal Range of Motion, Non Tender, No Calf Tenderness, No Pedal Edema Neurologic/Psychiatric: Alert, Oriented x3, 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 Norm as Tested, Abnormal Gait, Depressed Affect, Motor Weakness (right leg 3/5) Skin: Normal Color, Warm/Dry Lymphatic: No Adenopathy PM&R Medical Assessment & Plan REHAB/MEDICAL ASSESSMENT AND PLAN: REHAB IMPAIRMENT GROUP: Other Orthopedic ETIOLOGIC DIAGNOSIS: Lumbar stenosis of lumbar region The comorbidities that impact the patients function and/or functional outcome by: advanced age, HTN, EMILE on CPAP, right leg weakness, prostate cancer hx REHAB PLAN: The patient is being admitted to our comprehensive inpatient rehabilitation faci lity and can tolerate the intensity of service consisting of at least: 180 minutes of therapy a day, 5 out of 7 days a week Rehab treatment will consist of: PT OT will focus on regaining function and increasing right leg weakness strength in order to decrease fall risk and help regain independence The patient/family has a good understanding of our discharge process and will benefit from an interdisciplinary inpatient rehabilitation program. The patient has potential to make improvement and is in need of at least two of the following multidisciplinary therapies including but not limited to physical, occupational, speech, and prosthetics and orthotics. Additionally the patient will need services from respiratory, nutritional services, wound care, psychology, etc. (Customize this to each patient). Given the patients complex condition and risk of further medical complications, rehabilitation services cannot be safely or effectively provided at a lower level of care such as a nursing home facility. BARRIERS TO DISCHARGE: Lives alone ESTIMATED LOS: 7 days DISPOSITION: Home alone RELEVANT CHANGES SINCE PREADMISSION SCREENING: I have compared the patients medical and functional status at the time of the preadmission screening and there are: no changes PROGNOSIS: Good REHABILITATION GOALS: 1. PT OT will focus on regaining function and increasing right leg weakness strength in order to decrease fall risk and help regain independence All the above goals were reviewed with the patient and he/she is in agreement. By signing this document, I acknowledge that I have personally performed a full physical examination on this patient within 24 hours of admission to this inpatient rehabilitation facility and have determined the patient to be able to tolerate the above course of treatment at an intensive level for a reasonable period of time. I will be completing a detailed individualized Plan of Care for this patient by day #4 of the patients stay based upon the Preadmission Screen, the Post-Admission Evaluation, and the therapy evaluations. Admission Dx/Comorbidities: (1) Lumbar spinal stenosis ICD Codes: M48.061 - Spinal stenosis, lumbar region without neurogenic claudication Assessment/Plan Assessment and Plan Assess & Plan/Chief Complaint Assessment: Lumbar stenosis s/p surgery with slow recovery Right leg residual weakness from radiculopathy Prostate cancer hx L5 compression fracture s/p bone biopsy HTN EMILE on CPAP Advanced age Plan: BM regimen PT OT Home meds CPAP ROSAURA HOPPER DO Aug 21, 2023 18:54
[2023-08-21 20:00] VITALS: BP 134/86
[2023-08-21] MEDS: BRIMONIDINE 0.2% OPHTH SOLN 5 ML BTL OP SCH (20:04)
[2023-08-21] MEDS: DOCUSATE SODIUM 100 MG CAPSULE PO SCH (20:04)
[2023-08-21] MEDS: ENALAPRIL 10 MG TABLET PO SCH (20:05)
[2023-08-21] MEDS: OMEGA 3 (FISH OIL) 1000 MG CAP PO SCH (20:06)
[2023-08-21] MEDS: PANTOPRAZOLE 20 MG TABLET PO SCH (20:06)
[2023-08-21] MEDS: SENNA W/DOCUSATE TABLET PO SCH (20:07)
[2023-08-22] MEDS: HYDROcodone/ACETAMINOPHEN 5 MG/325 MG TABLET PO PRN ×3 (01:19→10:05)
[2023-08-22 05:43] LABS: BASOPHILS % (AUTO) 0 % (0-10); EOSINOPHILS # (AUTO) 0.1 10^3/uL (0.0-0.3); EOSINOPHILS % (AUTO) 2 % (0-10); HEMATOCRIT 35 % (40-54); HEMOGLOBIN 11.5 g/dL (13.3-17.7); LYMPHOCYTES # (AUTO) 1.7 10^3/uL (1.0-4.0); LYMPHOCYTES % (AUTO) 22 % (12-44); MEAN CORPUSCULAR HEMOGLOBIN 31 pg (25-34); MEAN CORPUSCULAR HGB CONC 33 g/dL (32-36); MEAN CORPUSCULAR VOLUME 95 fL (80-99); MEAN PLATELET VOLUME 9.1 fL (9.0-12.2); MONOCYTES # (AUTO) 0.8 10^3/uL (0.0-1.0); MONOCYTES % (AUTO) 11 % (0-12); NEUTROPHILS # (AUTO) 4.8 10^3/uL (1.8-7.8); NEUTROPHILS % (AUTO) 65 % (42-75); PLATELET COUNT 177 10^3/uL (130-400); WHITE BLOOD COUNT 7.4 10^3/uL (4.3-11.0)
[2023-08-22 05:57] LABS: ALBUMIN 3.5 GM/DL (3.2-4.5); POTASSIUM 4.3 MMOL/L (3.6-5.0)
[2023-08-22 05:58] LABS: CALCIUM 8.9 MG/DL (8.5-10.1)
[2023-08-22 06:00] LABS: TOTAL PROTEIN 6.1 GM/DL (6.4-8.2)
[2023-08-22 06:01] LABS: BILIRUBIN,TOTAL 1.2 MG/DL (0.1-1.0)
[2023-08-22 06:03] LABS: CREATININE SERUM 0.93 MG/DL (0.60-1.30)
[2023-08-22 07:30] VITALS: BP 131/66
[2023-08-22] MEDS: LORATADINE 10 MG TABLET PO SCH (07:48)
[2023-08-22] MEDS: ENALAPRIL 10 MG TABLET PO SCH ×2 (07:48→22:08)
[2023-08-22] MEDS: DOCUSATE SODIUM 100 MG CAPSULE PO SCH ×2 (07:48→22:00)
[2023-08-22] MEDS: OMEGA 3 (FISH OIL) 1000 MG CAP PO SCH ×2 (07:48→22:08)
[2023-08-22] MEDS: SENNA W/DOCUSATE TABLET PO SCH ×2 (07:48→22:00)
[2023-08-22] MEDS: TAMSULOSIN 0.4 MG (FLOMAX) CAP PO SCH (07:48)
[2023-08-22] MEDS: FAMOTIDINE 20 MG TABLET PO SCH (07:49)
[2023-08-22] MEDS: BRIMONIDINE 0.2% OPHTH SOLN 5 ML BTL OP SCH ×2 (07:53→22:07)
[2023-08-22] MEDS ORDERED: DOCOSAHEXAENOIC ACID 200 MG PO SCH (09:00)
[2023-08-22] MEDS ORDERED: ACETAMINOPHEN 500 MG TABLET PO SCH (09:00)
[2023-08-22] MEDS ORDERED: NON-FORMULARY MEDICATION 1 EA EA (Acetaminophen (Tylenol Extra Strength) 500 MG) PO SCH (09:00)
[2023-08-22] MEDS ORDERED: [UNRECOGNIZED DRUG - OTHER] PO SCH (09:00)
[2023-08-22] MEDS ORDERED: CHLORPHENIRAMINE PO SCH (09:00)
[2023-08-22] MEDS ORDERED: ACETAMINOPHEN PO SCH (09:00)
--- NOTE | 2023-08-22 10:19 | PM&R Progress Note ---
Subjective HPI/CC On Admission Date Seen by Provider: Aug 22, 2023 Time Seen by Provider: 12:00 Subjective/Events-last exam 08/22/2023: Patient had a lot more pain Did not get to sleep very much Labs are stable Bowels have not moved so we will initiate meds for that Added oxycodone and increased dose of hydrocodone Review of Systems General: Fatigue Musculoskeletal: back pain, leg pain Objective Exam Vital Signs Vital Signs Date Time Temp Pulse Resp B/P (MAP) Pulse Ox O2 Delivery O2 Flow Rate FiO2 08/22/23 19:29 36.6 90 16 134/69 (90) 94 Room Air Capillary Refill : General Appearance: No Apparent Distress, WD/WN, Chronically ill HEENT: PERRL/EOMI, Normal ENT Inspection, Pharynx Normal Neck: Full Range of Motion, Normal Inspection, Non Tender, Supple, Carotid Bruit Respiratory: Chest Non Tender, Lungs Clear, Normal Breath Sounds, No Accessory Muscle Use, No Respiratory Distress Cardiovascular: Regular Rate, Rhythm, No Edema, No Gallop, No JVD, No Murmur, Normal Peripheral Pulses Gastrointestinal: Normal Bowel Sounds, No Organomegaly, No Pulsatile Mass, Non Tender, Soft Back: Normal Inspection, No CVA Tenderness, No Vertebral Tenderness Extremity: Normal Capillary Refill, Normal Inspection, Normal Range of Motion, Non Tender, No Calf Tenderness, No Pedal Edema Neurologic/Psychiatric: Alert, Oriented x3, cooler man II-XII Norm as Tested, Abnormal Gait, Depressed Affect, Motor Weakness (right leg 3/5) Skin: Normal Color, Warm/Dry Lymphatic: No Adenopathy Results/Procedures Lab Laboratory Tests 08/22/23 05:04 Patient resulted labs reviewed. FIM Transfers Therapy Code Descriptions/Definitions Functional [place] Measure: 0=Not Assessed/NA 4=Minimal Assistance 1=Total Assistance 5=Supervision or Setup 2=Maximal Assistance 6=Modified [place] 3=Moderate Assistance 7=Complete IndependenceSCALE: Activities may be completed with or without assistive devices. 7-Jwtxjcwxzu-spjijaw completes the activity by him/herself with no assistance from a helper. 5-Set-up or Clean-up Assistance-helper sets up or cleans up; patient completes activity. [place] assists only prior to or following the activity. 4-Supervision or Touching Assistance-helper provides verbal cues and/or touching/steadying and/or contact guard assistance as patient completes activi ty. Assistance may be provided throughout the activity or intermittently. 3-Partial/Moderate Assistance-helper does LESS THAN HALF the effort. [place] lifts, holds or supports trunk or limbs, but provides less than half the effort. 2-Substantial/Maximal Assistance-helper does MORE THAN HALF the effort. [place] lifts or holds trunk or limbs and provides more than half the effort. 7-Efivuztmy-itnkuv does ALL the effort. Patient does none of the effort to complete the activity. Or, the assistance of 2 or more helpers is required for the patient to complete the activity. If activity was not attempted, code reason: 7-Patient Refused. 9-Not Applicable-not attempted and the patient did not perform the activity before the current illness, exacerbation or injury. 10-Not Attempted due to Environmental Limitations-(lack of equipment, weather restraints, etc.). 88-Not Attempted due to Medical Conditions or Safety Concerns. Roll Left to Right (QC): 3 Sit to Lying (QC): 3 Sit to Stand (QC): 3 Chair/Pti-wg-Ptoph Xfer(QC): 3 Car Transfer (QC): 3 Gait Training Does the Patient Walk?: Yes Walk 10 feet (QC): 3 Walk 50 ft with 2 Turns(QC): 3 Walk 150 ft (QC): 3 Walking 10ft/uneven surface-QC: 3 Gait Assistive Device: FWW Wheelchair Training Does the Pt Use a Wheelchair?: No Wheel 50 ft with 2 turns (QC): 9 Wheel 150 ft (QC): 9 Type of Wheelchair: N/A Stair Training #of Steps: 12 1 Step (curb) (QC): 3 4 Steps (QC): 3 12 Steps (QC): 3 Balance Picking up an Object (QC): 88 ADL-Treatment Eating (QC): 6 Oral Hygiene (QC): 5 Shower/Bathe Self (QC): 3 (Assist required with RLE) Upper Body Dressing (QC): 3 (Assist with back brace) Lower Body Dressing (QC): 3 (assistance threading RLE) On/Off Footwear (QC): 3 (50% assist. Pt able to complete L sock using figure 4 method, assist with R.) Toileting Hygiene (QC): 3 Assessment/Plan Assessment and Plan Assess & Plan/Chief Complaint Assessment: Lumbar stenosis s/p surgery with slow recovery Right leg residual weakness from radiculopathy Prostate cancer hx L5 compression fracture s/p bone biopsy HTN EMILE on CPAP Advanced age Plan: BM regimen PT OT Home meds CPAP 08/22/2023: Bowel regimen Increased pain meds (1) Lumbar spinal stenosis ROSAURA HOPPER DO Aug 22, 2023 10:19
[2023-08-22] MEDS: HYDROcodone/ACETAMINOPHEN 10/325 TABLET PO PRN ×3 (13:53→23:00)
[2023-08-22] MEDS: ACETAMINOPHEN 325 MG TABLET PO PRN (18:44)
[2023-08-22 19:29] VITALS: BP 134/69
[2023-08-22] MEDS: ACETAMINOPHEN 500 MG TABLET PO SCH (22:09)
[2023-08-22] MEDS: oxyCODONE IMMEDIATE RELEASE 5 MG TABLET PO PRN (22:09)
[2023-08-22] MEDS: PANTOPRAZOLE 20 MG TABLET PO SCH (22:09)
[2023-08-22] MEDS: MELATONIN 3 MG TABLET PO PRN (22:09)
[2023-08-22] MEDS: ALPRAZolam 0.25 MG TABLET PO PRN (22:59)
[2023-08-23] MEDS: HYDROcodone/ACETAMINOPHEN 10/325 TABLET PO PRN ×3 (06:13→21:56)
--- NOTE | 2023-08-23 06:23 | PM&R Progress Note ---
Subjective HPI/CC On Admission Date Seen by Provider: Aug 23, 2023 Time Seen by Provider: 11:00 Subjective/Events-last exam 08/23/2023: Patient doing much better Oxycodone had help with the pain last night and he did sleep Talking more about his right leg and right leg pain 08/22/2023: Patient had a lot more pain Did not get to sleep very much Labs are stable Bowels have not moved so we will initiate meds for that Added oxycodone and increased dose of hydrocodone Review of Systems General: Fatigue, Malaise Objective Exam Vital Signs Vital Signs Date Time Temp Pulse Resp B/P (MAP) Pulse Ox O2 Delivery O2 Flow Rate FiO2 08/23/23 09:00 Room Air 08/23/23 07:42 36.6 88 18 111/63 (79) 96 Capillary Refill : General Appearance: No Apparent Distress, WD/WN, Chronically ill HEENT: PERRL/EOMI, Normal ENT Inspection, Pharynx Normal Neck: Full Range of Motion, Normal Inspection, Non Tender, Supple, Carotid Bruit Respiratory: Chest Non Tender, Lungs Clear, Normal Breath Sounds, No Accessory Muscle Use, No Respiratory Distress Cardiovascular: Regular Rate, Rhythm, No Edema, No Gallop, No JVD, No Murmur, Normal Peripheral Pulses Gastrointestinal: Normal Bowel Sounds, No Organomegaly, No Pulsatile Mass, Non Tender, Soft Back: Normal Inspection, No CVA Tenderness, No Vertebral Tenderness Extremity: Normal Capillary Refill, Normal Inspection, Normal Range of Motion, Non Tender, No Calf Tenderness, No Pedal Edema Neurologic/Psychiatric: Alert, 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 FIM Transfers Therapy Code Descriptions/Definitions Functional [place] Measure: 0=Not Assessed/NA 4=Minimal Assistance 1=Total Assistance 5=Supervision or Setup 2=Maximal Assistance 6=Modified [place] 3=Moderate Assistance 7=Complete IndependenceSCALE: Activities may be completed with or without assistive devices. 3-Ojvniipuib-lwrdwvb completes the activity by him/herself with no assistance from a helper. 5-Set-up or Clean-up Assistance-helper sets up or cleans up; patient completes activity. [place] assists only prior to or following the activity. 4-Supervision or Touching Assistance-helper provides verbal cues and/or touching/steadying and/or contact guard assistance as patient completes activity. Assistance may be provided throughout the activity or intermittently. 3-Partial/Moderate Assistance-helper does LESS THAN HALF the effort. [place] lifts, holds or supports trunk or limbs, but provides less than half the effort. 2-Substantial/Maximal Assistance-helper does MORE THAN HALF the effort. [place] lifts or holds trunk or limbs and provides more than half the effort. 4-Obwfzpubo-aiqprk does ALL the effort. Patient does none of the effort to complete the activity. Or, the assistance of 2 or more helpers is required for the patient to complete the activity. If activity was not attempted, code reason: 7-Patient Refused. 9-Not Applicable-not attempted and the patient did not perform the activity befo re the current illness, exacerbation or injury. 10-Not Attempted due to Environmental Limitations-(lack of equipment, weather re straints, etc.). 88-Not Attempted due to Medical Conditions or Safety Concerns. Roll Left to Right (QC): 3 Sit to Lying (QC): 3 Sit to Stand (QC): 3 Chair/Ftp-yz-Skogf Xfer(QC): 3 Car Transfer (QC): 3 Gait Training Does the Patient Walk?: Yes Walk 10 feet (QC): 3 Walk 50 ft with 2 Turns(QC): 3 Walk 150 ft (QC): 3 Walking 10ft/uneven surface-QC: 3 Gait Assistive Device: FWW Wheelchair Training Does the Pt Use a Wheelchair?: No Wheel 50 ft with 2 turns (QC): 9 Wheel 150 ft (QC): 9 Type of Wheelchair: N/A Stair Training #of Steps: 12 1 Step (curb) (QC): 3 4 Steps (QC): 3 12 Steps (QC): 3 Balance Picking up an Object (QC): 88 ADL-Treatment Eating (QC): 6 Oral Hygiene (QC): 5 Shower/Bathe Self (QC): 3 (Assist required with RLE) Upper Body Dressing (QC): 3 (Assist with back brace) Lower Body Dressing (QC): 3 (assistance threading RLE) On/Off Footwear (QC): 3 (50% assist. Pt able to complete L sock using figure 4 method, assist with R.) Toileting Hygiene (QC): 3 Assessment/Plan Assessment and Plan Assess & Plan/Chief Complaint Assessment: Lumbar stenosis s/p surgery with slow recovery Right leg residual weakness from radiculopathy Prostate cancer hx L5 compression fracture s/p bone biopsy HTN EMILE on CPAP Advanced age Plan: BM regimen PT OT Home meds CPAP 08/22/2023: Bowel regimen Increased pain meds 08/23/2023: Pain control Aggressive rehab (1) Lumbar spinal stenosis ROSAURA HOPPER DO Aug 23, 2023 06:23
--- NOTE | 2023-08-23 06:24 | Individualized Plan of Care ---
Individualized Plan of Care Rehab Nursing IPOC Order Admission Date Aug 21, 2023 at 11:30 Current Orders Orders Admission Arrival Bed Request (08/21/23 11:34) General/Regular (08/21/23 Lunch) Admission Order(Inpt,Obs,Sdc) (08/21/23 12:30) Vital Signs: Per Unit Policy ( 08,16,00 (08/21/23 12:30) Jerry Hose 09,21 (08/21/23 12:30) Sequential Compression Device [id number] (08/21/23 12:30) Social Work Lecturer-Inpt Rehab Con (08/21/23 12:30) Rehab Nursing Orders-Ipoc (08/21/23 12:30) Physical Therapy Rehab Orders (08/21/23 12:30) Occupational Therapy Rehab Ord (08/21/23 12:30) Speech Therapy Rehab Orders (08/21/23 12:30) Cbc And Automated Diff (08/22/23 06:00) Comprehensive Metabolic Panel (08/22/23 06:00) Precautions (Aru) (08/21/23 12:30) Weekly Weight WEEK (08/21/23 12:30) Rehab-Intensity Of Therapy (08/21/23 12:30) Initiate Admission Nursing Pro .admission (08/21/23 12:30) Alprazolam Tablet (Alprazolam Tablet) (08/21/23 12:30) Calcium Carbonate Chew Tablet (Calcium C (08/21/23 12:30) Diphenhydramine Tablet (Diphenhydramine (08/21/23 12:30) Docusate Sodium Capsule (Docusate Sodium (08/21/23 21:00) Docusate Sodium Capsule (Docusate Sodium (08/21/23 12:30) Bisacodyl Suppository (Bisacodyl Supposi (08/21/23 12:30) Lactulose Oral Solution (Enulose Oral So (08/21/23 12:30) Na Phos/Na Biphos Adult Enema (Na Phos/N (08/21/23 12:30) Guaifenesin/Codeine Syrup (Guaifenesin/C (08/21/23 12:30) Loperamide Capsule (Loperamide Capsule) (08/21/23 12:30) Melatonin Tablet (Melatonin Tablet) (08/21/23 12:30) Polyethylene Glycol Powder (Polyethylen (08/21/23 21:00) Ondansetron Oral Dissolve Tab (Ondanset (08/21/23 12:30) Senna W/Docusate Tablet (Senna W/Docusat (08/21/23 21:00) Acetaminophen Tablet (Acetaminophen Ta (08/21/23 12:30) Initiate Admission Nursing Pro .admission (08/21/23 12:30) Atorvastatin Tablet (Atorvastatin Tablet (08/21/23 21:00) Brimonidine 0.2% Ophth Soln (Brimonidin (08/21/23 21:00) Famotidine Tablet (Famotidine Tablet) (08/22/23 09:00) Hydrocodone/Apap 5/325 Tablet (Hydrocod (08/21/23 13:15) Loratadine Tablet (Loratadine Tablet) (08/22/23 09:00) Tamsulosin Capsule (Flomax Capsule) (08/22/23 09:00) (Nf) Acetaminophen (Tylenol Extra Streng (08/22/23 09:00) (Nf) Acetaminophen/Chlorpheniramine (Cor (08/22/23 09:00) (Nf) Docosahexaenoic Acid (Dha From Alga (08/22/23 09:00) Enalapril Tablet (Enalapril Tablet) (08/21/23 21:00) Hydrochlorothiazide Tablet (Hydrochlorot (08/22/23 09:00) Fish Oil Capsule (Fish Oil Capsule) (08/21/23 21:00) Pantoprazole Tablet (Pantoprazole Tablet (08/21/23 21:00) Acetaminophen Tablet (Acetaminophen Ta (08/22/23 09:00) Code/Resuscitation (08/21/23 17:49) Acetaminophen Tablet (Acetaminophen Ta (08/22/23 21:00) Hydrocodone/Apap 10/325 Tablet (Hydrocod (08/22/23 12:00) Oxycodone Immediate Rel Tablet (Oxycodon (08/22/23 12:00) Vte Contraindication (08/22/23 20:38) Rehab Nursing Orders: Ongoing Assess. of Cognitive Status, Ongoing Assess. of Function Status, Bladder Management, Bladder Scan, Bladder Training, Bowel Management, Bowel Training, Disease Management & Educaiton, DVT Prophylaxis, Fall Prevention, Fluid/Electrolyte/Nutrition Mgmt, Infection Prevention, Medication Management & Education, Management of Risks & Complications, Management of Skin Intergrity, Nutrition Management, Pain Management, Patient/Family Support, Safety Management, Wound Management Intensity of Therapy to be met Patient to be seen: Min.3h per day/5 of 7d PT IPOC Problem List: Activity Tolerance, Functional Strength, Safety, Balance, Gait, Transfer, Bed Mobility, ROM Treatment Plan: Continue Plan of Care Bed Mobility, Education, Functional Activity Romeo, Functional Strength, Group Therapy, Gait, Safety, Therapeutic Exercise, Transfers Treatment Duration: Aug 21, 2023 Frequency: At least 5 of 7 days/Wk (IRF) Estimated Hrs Per Day: 1.5 hours per day OT IPOC Problems: Decreased Activ Tolerance, Decreased UE Strength, Impaired Funct Balance, Impaired I ADL's, Impaired Self-Care Skills OT Treatment, Training and Edu: Yes Plan of Care: ADL Retraining, Functional Mobility, Group Exercise/Act as Ind, UE Funct Exercise/Act Treatment Duration: Sep 11, 2023 Frequency: At least 5 of 7 days/Wk (IRF) Estimated Hrs Per Day: 1.[address] IPOC Speech Therapy Treatment Plan: Discontinue ST Treatment Duration: Aug 21, 2023 Frequency: Modified Program (IRF) Estimated Hrs Per Day: Other Social Work Lecturer/Case Mgmt Social Work Lecturer/Case Managemen: Discharge Planning Dietitian/Professional Wrestler Dietitian/Professional Wrestler to monitor nutritional status and make changes and/or recommendations as needed and work with speech pathology on dietary upgrades as the occur. Physician IPOC Medical Issues being managed closely and that require the 24 hour availability of a physician: Recent lumbar spine surgery with compression fracture bone biopsy with history of prostate cancer with residual right leg radiculopathy pain will require close monitoring for any side effects from pain medication and narcotic bowel Medical Issues: Bowel/Bladder Function, DVT Prophylaxis, Falls Precautions, Flu id/Electrolyte/Nutrition Balance, Infection Protection, Pain Management, Wound Care Brief Synthesis of Preadmission Screen, Post-Admission Evaluation, and Therapy Evaluations: PT and OT will focus on regaining function with the use of assistive devices in order to return back to baseline function since he lives alone while decreasing falls and increasing independence in ADLs. Medical Prognosis: Good Anticipated Length of Stay: 7 days ROSAURA HOPPER DO Aug 23, 2023 06:24
[2023-08-23 07:42] VITALS: BP 111/63
[2023-08-23] MEDS: ACETAMINOPHEN 500 MG TABLET PO SCH ×2 (08:23→21:54)
[2023-08-23] MEDS: DOCUSATE SODIUM 100 MG CAPSULE PO SCH ×2 (08:23→21:52)
[2023-08-23] MEDS: BRIMONIDINE 0.2% OPHTH SOLN 5 ML BTL OP SCH ×2 (08:23→21:59)
[2023-08-23] MEDS: FAMOTIDINE 20 MG TABLET PO SCH (08:23)
[2023-08-23] MEDS: LORATADINE 10 MG TABLET PO SCH (08:23)
[2023-08-23] MEDS: TAMSULOSIN 0.4 MG (FLOMAX) CAP PO SCH (08:24)
[2023-08-23] MEDS: ENALAPRIL 10 MG TABLET PO SCH ×2 (08:24→21:53)
[2023-08-23] MEDS: SENNA W/DOCUSATE TABLET PO SCH ×2 (08:25→21:54)
[2023-08-23] MEDS: OMEGA 3 (FISH OIL) 1000 MG CAP PO SCH ×2 (08:25→21:51)
[2023-08-23] MEDS: oxyCODONE IMMEDIATE RELEASE 5 MG TABLET PO PRN ×2 (10:22→15:30)
[2023-08-23 20:50] VITALS: BP 106/71
[2023-08-23] MEDS: ALPRAZolam 0.25 MG TABLET PO PRN (21:54)
[2023-08-23] MEDS: MELATONIN 3 MG TABLET PO PRN (21:54)
[2023-08-23] MEDS: PANTOPRAZOLE 20 MG TABLET PO SCH (21:55)
--- NOTE | 2023-08-24 04:52 | PM&R Progress Note ---
Subjective HPI/CC On Admission Date Seen by Provider: Aug 24, 2023 Time Seen by Provider: 09:00 Subjective/Events-last exam 08/24/2023: About the same except drowsy from Oxycodone No BM yet so will initiate supp and more laxatives Reviewed meds 08/23/2023: Patient doing much better Oxycodone had help with the pain last night and he did sleep Talking more about his right leg and right leg pain 08/22/2023: Patient had a lot more pain Did not get to sleep very much Labs are stable Bowels have not moved so we will initiate meds for that Added oxycodone and increased dose of hydrocodone Review of Systems General: Fatigue, Malaise Musculoskeletal: leg pain Objective Exam Vital Signs Vital Signs Date Time Temp Pulse Resp B/P (MAP) Pulse Ox O2 Delivery O2 Flow Rate FiO2 08/24/23 09:00 Room Air 08/24/23 08:00 36.6 85 19 133/83 (100) 97 Capillary Refill : General Appearance: No Apparent Distress, WD/WN, Chronically ill HEENT: PERRL/EOMI, Normal ENT Inspection, Pharynx Normal Neck: Full Range of Motion, Normal Inspection, Non Tender, Supple, Carotid Bruit Respiratory: Chest Non Tender, Lungs Clear, Normal Breath Sounds, No Accessory Muscle Use, No Respiratory Distress Cardiovascular: Regular Rate, Rhythm, No Edema, No Gallop, No JVD, No Murmur, Normal Peripheral Pulses Gastrointestinal: Normal Bowel Sounds, No Organomegaly, No Pulsatile Mass, Non Tender, Soft Back: Normal Inspection, No CVA Tenderness, No Vertebral Tenderness Extremity: Normal Capillary Refill, Normal Inspection, Normal Range of Motion, Non Tender, No Calf Tenderness, No Pedal Edema Neurologic/Psychiatric: Alert, Oriented x3, dietary tech II-XII Norm as Tested, Abnormal Gait, Depressed Affect, Motor Weakness (right leg 3/5) Skin: Normal Color, Warm/Dry Lymphatic: No Adenopathy Results/Procedures Lab Patient resulted labs reviewed. FIM Transfers Therapy Code Descriptions/Definitions Functional [place] Measure: 0=Not Assessed/NA 4=Minimal Assistance 1=Total Assistance 5=Supervision or Setup 2=Maximal Assistance 6=Modified [place] 3=Moderate Assistance 7=Complete IndependenceSCALE: Activities may be completed with or without assistive devices. 6-Mbszpotovo-bvwqzsm completes the activity by him/herself with no assistance from a helper. 5-Set-up or Clean-up Assistance-helper sets up or cleans up; patient completes activity. [place] assists only prior to or following the activity. 4-Supervision or Touching Assistance-helper provides verbal cues and/or touching/steadying and/or contact guard assistance as patient completes activity. Assistance may be provided throughout the activity or intermittently. 3-Partial/Moderate Assistance-helper does LESS THAN HALF the effort. [place] lifts, holds or supports trunk or limbs, but provides less than half the effort. 2-Substantial/Maximal Assistance-helper does MORE THAN HALF the effort. [place] lifts or holds trunk or limbs and provides more than half the effort. 9-Qdknsvhpj-qyhuin does ALL the effort. Patient does none of the effort to complete the activity. Or, the assistance of 2 or more helpers is required for the patient to complete the activity. If activity was not attempted, code reason: 7-Patient Refused. 9-Not Applicable-not attempted and the patient did not perform the activity before the current illness, exacerbation or injury. 10-Not Attempted due to Environmental Limitations-(lack of equipment, weather restraints, etc.). 88-Not Attempted due to Medical Conditions or Safety Concerns. Roll Left to Right (QC): 3 Sit to Lying (QC): 3 Sit to Stand (QC): 3 Chair/Msm-dq-Cvfqz Xfer(QC): 3 Car Transfer (QC): 3 Gait Training Does the Patient Walk?: Yes Walk 10 feet (QC): 3 Walk 50 ft with 2 Turns(QC): 3 Walk 150 ft (QC): 3 Walking 10ft/uneven surface-QC: 3 Gait Assistive Device: FWW Wheelchair Training Does the Pt Use a Wheelchair?: No Wheel 50 ft with 2 turns (QC): 9 Wheel 150 ft (QC): 9 Type of Wheelchair: N/A Stair Training #of Steps: 12 1 Step (curb) (QC): 3 4 Steps (QC): 3 12 Steps (QC): 3 Balance Picking up an Object (QC): 88 ADL-Treatment Eating (QC): 6 Oral Hygiene (QC): 5 Shower/Bathe Self (QC): 3 (Assist required with RLE) Upper Body Dressing (QC): 3 (Assist with back brace) Lower Body Dressing (QC): 3 (assistance threading RLE) On/Off Footwear (QC): 3 (50% assist. Pt able to complete L sock using figure 4 method, assist with R.) Toileting Hygiene (QC): 3 Assessment/Plan Assessment and Plan Assess & Plan/Chief Complaint Assessment: Lumbar stenosis s/p surgery with slow recovery Right leg residual weakness from radiculopathy Prostate cancer hx L5 compression fracture s/p bone biopsy HTN EMILE on CPAP Advanced age Plan: BM regimen PT OT Home meds CPAP 08/22/2023: Bowel regimen Increased pain meds 08/23/2023: Pain control Aggressive rehab 08/24/2023: Monitor closely Pain control (1) Lumbar spinal stenosis ROSAURA HOPPER DO Aug 24, 2023 04:52
[2023-08-24] MEDS: BRIMONIDINE 0.2% OPHTH SOLN 5 ML BTL OP SCH ×2 (07:45→21:07)
[2023-08-24] MEDS: ENALAPRIL 10 MG TABLET PO SCH ×2 (07:45→21:05)
[2023-08-24] MEDS: TAMSULOSIN 0.4 MG (FLOMAX) CAP PO SCH (07:45)
[2023-08-24] MEDS: SENNA W/DOCUSATE TABLET PO SCH ×2 (07:45→21:05)
[2023-08-24] MEDS: FAMOTIDINE 20 MG TABLET PO SCH (07:46)
[2023-08-24] MEDS: DOCUSATE SODIUM 100 MG CAPSULE PO SCH ×2 (07:46→21:05)
[2023-08-24] MEDS: ACETAMINOPHEN 500 MG TABLET PO SCH ×2 (07:46→21:05)
[2023-08-24] MEDS: LORATADINE 10 MG TABLET PO SCH (07:46)
[2023-08-24] MEDS: OMEGA 3 (FISH OIL) 1000 MG CAP PO SCH ×2 (07:46→21:05)
[2023-08-24] MEDS: oxyCODONE IMMEDIATE RELEASE 5 MG TABLET PO PRN ×3 (07:47→21:05)
[2023-08-24] MEDS: ONDANSETRON 4 MG ORAL DISSOLVE TABLET PO PRN (07:57)
[2023-08-24 08:00] VITALS: BP 133/83
--- NOTE | 2023-08-24 09:22 | Occupational Ther Daily Note ---
OT Current Status-Daily Note Subjective Pt agreeable to OT tx. At end of tx, pt had difficulty keeping eyes open, stating that he gets tired with pain meds. Pain 4/10 at start of tx, 8/10 towards end of session. Pt asked the same questions several times throughout tx, having poor recall of therapists answer/instructions. Pt also required moderate VCs for back precautions. ADL-Treatment Therapy Code Descriptions/Definitions Functional [place] Measure: 0=Not Assessed/NA 4=Minimal Assistance 1=Total Assistance 5=Supervision or Setup 2=Maximal Assistance 6=Modified [place] 3=Moderate Assistance 7=Complete IndependenceSCALE: Activities may be completed with or without assistive devices. 8-Qzxjfmglyi-mtixxau completes the activity by him/herself with no assistance from a helper. 5-Set-up or Clean-up Assistance-helper sets up or cleans up; patient completes activity. [place] assists only prior to or following the activity. 4-Supervision or Touching Assistance-helper provides verbal cues and/or touching/steadying and/or contact guard assistance as patient completes activity. Assistance may be provided throughout the activity or intermittently. 3-Partial/Moderate Assistance-helper does LESS THAN HALF the effort. [place] lifts, holds or supports trunk or limbs, but provides less than half the effort. 2-Substantial/Maximal Assistance-helper does MORE THAN HALF the effort. [place] lifts or holds trunk or limbs and provides more than half the effort. 1-Ixhvllxar-ukyjvj does ALL the effort. Patient does none of the effort to complete the activity. Or, the assistance of 2 or more helpers is required for the patient to complete the activity. If activity was not attempted, code reason: 7-Patient Refused. 9-Not Applicable-not attempted and the patient did not perform the activity before the current illness, exacerbation or injury. 10-Not Attempted due to Environmental Limitations-(lack of equipment, weather restraints, etc.). 88-Not Attempted due to Medical Conditions or Safety Concerns. Eating (QC): 6 (IND with breakfast) Oral Hygiene (QC): 6 (seated at sink) Shower/Bathe Self (QC): 4 (CGA in stand. Sponge bath using LH sponge for LES. Min VCs for sequencing.) Upper Body Dressing (QC): 3 (Min A with managing sweatshirt down in back.) Lower Body Dressing (QC): 4 (Moderate VCs for AE education and back precautions.) On/Off Footwear: 2 (Max A overall. Pt able to doff socks using superior court clerk. Assist donning socks and shoes using AE.) Toileting Hygiene (QC): 4 (CGA) Toilet Transfer (QC): 4 (CGA) Other Treatment Pt in recliner, agreeable to OT Tx. Pt stood from recliner, transferred into bathroom, onto BSC over toilet, CGA. Pt completed toileting, then transferred to chair at sink. Pt doffed clothes, completed sponge bath and donned clothes. Education provided on LH sponge to wash/dry LEs, and education on superior court clerk, sock aide, LH shoe horn. With pt's permission, pt's shoe laces switched out with elastic laces in order to convert shoes to slip on shoes. Pt required moderate VCs throughout tx in order to maintain back precautions. Pt used FWW to return to recliner, CGA. Post tx, pt in recliner, call light in reach and all needs met. Education OT Patient Education: Correct positioning, Energy conservation, Instructions don/doff splint/brace, Modified ADL techniques, Progress toward Goal/Update tx plan, Purpose of tx/functional activities, Reviewed precautions, Rehab process, Safety issues, Transfer techniques, Use of adapted equipment Teaching Recipient: Patient Teaching Methods: Discussion Response to Teaching: Verbalize Understanding OT Hamper Maker Machine Goals Hamper Maker Machine Goals Time Frame: Sep 11, 2023 Acute change in mental status: 1 Inattention: 0 Disorganized thinkin Altered level of consciousness: 0 Eating (QC): 6 Oral Hygiene (QC): 6 Toileting Hygiene (QC): 6 Shower/Bathe Self (QC): 5 Upper Body Dressing (QC): 6 Lower Body Dressing (QC): 6 On/Off Footwear (QC): 6 Additional Goals: 1-Demonstrate ADL Tasks, 2-Verbalize Understanding, 3- ImproveStrength/Romeo 1=Demonstrate adherence to instructed precautions during ADL tasks. 2=Patient will verbalize/demonstrate understanding of assistive devices/modifications for ADL. 3=Patient will improve strength/tolerance for activity to enable patient to perform ADL's. OT Education/Plan Problem List/Assessment Assessment: Decreased Activ Tolerance, Decreased Safety Aware, Decreased UE Strength, Impaired Funct Balance, Impaired I ADL's, Impaired Self-Care Skills Discharge Recommendations Plan/Recommendations: Continue POC Treatment Plan/Plan of Care Patient would benefit from OT for education, treatment and training to promote independence in ADL's, mobility, safety and/or upper extremity function for ADL's. Plan of Care: ADL Retraining, Functional Mobility, Group Exercise/Act as Ind, UE Funct Exercise/Act Treatment Duration: Sep 11, 2023 Frequency: At least 5 of 7 days/Wk (IRF) Estimated Hrs Per Day: 1.5 hours per day Agreement: Yes Rehab Potential: Good Time Start Time: 07:30 Stop Time: 09:00 DATE: Aug 24, 2023 Total Time Billed (hr/min): 90 Billed Treatment Time 1, ADL 6 JOHAN CORDERO OT Aug 24, 2023 09:22
--- NOTE | 2023-08-24 09:28 | Progress Note ---
IGNACIO GARVEY 08/24/23 0928: Progress Note 78 year old male, here for recovery from lumbar surgery with residual right leg weakness from radiculopathy. He has a history of prostate cancer, HTN, and EMILE on CPAP. We are pending results from a bone biopsy from his L5 compression fracture. On admission, patient has been limited due to the surgery and right leg radiculopathy. He is currently able to perform ADLs with moderate assistance, with the goal of treatment to have him be completely independent as he lives alone. He is having difficulty with pain in his right leg, which is controlled with oxycodone and tylenol. Patient still reports a 4/10 pain. He also has not had a bowel movement. He is eager to having PT/OT and get stronger. EJN HOPPER DO 08/24/232009: Supervisory-Addendum Brief Verification & Attestation Participated in pt care: history, MDM, physical Personally performed: exam, history, MDM, supervision of care Care discussed with: Medical Student Procedures: n/a Results interpretation: Verified all documentation Verification and Attestation of Medical Student E/M Service A medical student performed and documented this service in my presence. I reviewed and verified all information documented by the medical student and made modifications to such information, when appropriate. I personally performed the physical exam and medical decision making. Jen Hopper, Aug 24, 2023,20:09 IGNACIO GARVEY Aug 24, 2023 09:28 JEN HOPPER DO Aug 24, 2023 20:10
--- NOTE | 2023-08-24 10:55 | Physical Therapy Daily Note ---
PT Daily Note-Current Subjective States he has intermittent pain in the (R) thigh - rates as 6/10 prior to PT. Pain Comment: Pain in (R) lat. hip (Directly over greater trochanter) and into (R) thigh Section J - Health Conditions 1. Rarely or not at all 2. Occasionally 3. Frequently 4. Almost constantly 8. Unable to answer Pain Effect on Sleep: 3 Pain Interference with Therapy: 3 Pain Interference w/Day-to-Day: 3 Appearance Sitting in common area on ARU. Agreeable to working- with P.T. Mental Status Mildly lethargic from a.m. pain medication. Incision drain attached to clothing. TLSO is place. Transfers SCALE: Activities may be completed with or without assistive devices. 9-Jglazyzcrr-sdzezdz completes the activity by him/herself with no assistance from a helper. 5-Set-up or Clean-up Assistance-helper sets up or cleans up; patient completes activity. [place] assists only prior to or following the activity. 4-Supervision or Touching Assistance-helper provides verbal cues and/or touching/steadying and/or contact guard assistance as patient completes activity. Assistance may be provided throughout the activity or intermittently. 3-Partial/Moderate Assistance-helper does LESS THAN HALF the effort. [place] lifts, holds or supports trunk or limbs, but provides less than half the effort. 2-Substantial/Maximal Assistance-helper does MORE THAN HALF the effort. [place] lifts or holds trunk or limbs and provides more than half the effort. 7-Ckpqjodrj-ahlqyt does ALL the effort. Patient does none of the effort to complete the activity. Or, the assistance of 2 or more helpers is required for the patient to complete the activity. If activity was not attempted, code reason: 7-Patient Refused. 9-Not Applicable-not attempted and the patient did not perform the activity before the current illness, exacerbation or injury. 10-Not Attempted due to Environmental Limitations-(lack of equipment, weather restraints, etc.). 88-Not Attempted due to Medical Conditions or Safety Concerns. Roll Left & Right (QC): 3 (min-mod(A) with v.c. and instruction for log rolling) Sit to Lying (QC): 3 (mod (A) with v.c. for log rolling, assist with (R) LE) Lying to Sitting/Side of Bed(Q: 3 (min-mod (A) with trunk, (R) leg and to log roll) Sit to Stand (QC): 4 (CGA /c v.c. for hand placement from armchair, elevated tovar mat, Nustep, armchair x 2, 3-in-1 commode.) Chair/Ywj-cw-Wpyyf Xfer(QC): 3 (Min (A) with FWW due to short step length (B) and need for cues to complete turn) Toilet Transfer (QC): 3 (Min (A) with v.c. for grab bar use. Patient able to manage own clothing without assist before and after using bathroom. ) Weight Bearing Right Lower Extremity: Right Weight Bearing/Tolerated Left Lower Extremity: Left Weight Bearing/Tolerated C/o pain in (R) leg when walking - discussed and demonstrated appropriate walker use to provide additional support for (R) leg if needed Gait Training Does the Patient Walk?: Yes Distance: 57', 57'. 72' Walk 10 feet (QC): 3 (min (A) c FWW) Walk 50 ft with 2 Turns(QC): 3 (min (A) with FWW) Stooped posture, knee flexion (tight hamstrings), short step length (R) due to pain in (R) hip/leg. W/C f/u used for last bout of gait due to fatigue. Exercises NuStep Minutes: 12 (Has 0/10 pain in leg while performing Nustep exercise.) NuStep Workload: 2 Treatments Sit>supine on tovar mat - educated on leg manager salt use, however patient declined and wanted to try without. Had significant pain when lifting leg onto bed - unable to complete and required PT to lift (R) leg up to mat. Bed mobility practice /p discussion re. log rolling = min (A) with mod cues to roll left, mod (A) with mod cues to roll (R). Supine>sit mod (A) of 1. Supine exercise in hooklying: (discussed that hooklying position will relief discomfort in back/legs) -TA's 5 x :03 holds -AROM SAQ with bolster under knees 10 x :03 (B) -AROM (L) quad set with heel elevated (for hamstring stretch) 10 x :03 (not completed on (R) due to neural tension, pain in (R) hip at rest). -Manual heel cord stretches (B) with hip/knee at 90/90 position x 10 x :05 ea -Manual hamstring stretch (L) 5 x :05 Seated exercise: -(B) hamstring stretch with forward hip hinge 3 x :15 (B) -DF/PF press x 10 (B) -marching in place x 10 (B). DIscussed spinal stenosis and how a slightly forward flexed posture will alleviate pain - demonstrated sitting with elbows resting on knees-patient s tates this is the position where he is most comfortable. Discussed elevated foot of bed when he goes to bed tonight to help provide pain relief to back/hip. Kpad turned on and applied to (R) hip following sessions. Assessment Current Status: Good Progress 78 year old male who is 4 days post-op lumbar laminectomy with continued back/(R) LE radicular pain. Tolerates sitting exercise well and Nustep alleviates leg pain. Does have substantial hamstring tightness (B) which also limits upright mobility, but has low tolerance to stretching at this time. Most painful position is supine - recommend elevating foot of bed to increase comfort at night. PT Short Term Goals Short Term Goals Time Frame: Aug 28, 2023 Roll Left & Right: 5 Sit to lyin Lying to sitting on side of be: 5 Sit to stand: 5 Chair/szh-xa-nlcke transfer: 5 Toilet transfer: 5 Car transfer: 5 Walk 10 feet: 5 Walk 50 feet with two turns: 5 Walk 150 feet: 5 Walking 10ft on uneven surface: 5 1 step (curb): 5 4 steps: 5 12 steps: 5 Picking up objects: 5 Does pt use a wc or scooter: No Wheel 50ft w/2 turns: 9 Wheel 150 feet: 9 Type: N/A PT Pulverizer Goals Pulverizer Goals PT Half-Way Goals Time Frame: Sep 04, 2023 Roll Left & Right (QC): 6 Sit to Lying (QC): 6 Lying-Sitting on Side/Bed(QC): 6 Sit to Stand (QC): 6 Chair/Tri-rm-Opkmh Xfer(QC): 6 Toilet Transfer (QC): 6 Car Transfer (QC): 6 Does the Patient Walk: Yes Walk 10 feet (QC): 6 Walk 50ft with 2 Turns (QC): 6 Walk 150 ft (QC): 6 Walking 10ft on Uneven Surface: 6 1 Step (curb) (QC): 6 4 Steps (QC): 6 12 Steps (QC): 6 Picking up an Object (QC): 6 Does the Pt use WC or Scooter?: No Wheel 50 feet with 2 turns (QC: 9 Type: N/A Wheel 150 feet: 9 Type: N/A PT Plan Problem List Problem List: Activity Tolerance, Functional Strength, Safety, Balance, Gait, Transfer, Bed Mobility, ROM, Other (Pain) Treatment/Plan Treatment Plan: Continue Plan of Care Treatment Plan: Bed Mobility, Education, Functional Activity Romeo, Functional Strength, Group Therapy, Gait, Safety, Therapeutic Exercise, Transfers Treatment Duration: Aug 21, 2023 Frequency: At least 5 of 7 days/Wk (IRF) Estimated Hrs Per Day: 1.5 hours per day Patient and/or Family Agrees t: Yes Safety Risks/Education Patient Education: Gait Training, Transfer Techniques, Reviewed Precautions, Correct Positioning, Safety Issues Teaching Recipient: Patient Teaching Methods: Demonstration, Discussion Response to Teaching: Reinforcement Needed Discharge Recommendations Therapy Discharge Recommendati: Meals on Wheels, Bath Aide, Homemaker Support, Post Acute PT Target Placement TBD Time Time In: 1000 Time Out: 1130 DATE: Aug 24, 2023 Total Billed Treatment Time: 90 Total Billed Treatment 3Ex, 1 FA, 2 GT Katie Blank PT Aug 24, 2023 10:55
--- NOTE | 2023-08-24 14:07 | ST Cognitive Linguistic Eval ---
Speech Evaluation-General Medical Diagnosis lumbar stenosis L4-5; s/p Lami Onset Date: Aug 20, 2023 Therapy Diagnosis Therapy Diagnosis: s/p laminectomy Precautions Precautions: Fall Precautions/Isolations: Standard Precautions Referral Referring Physician: Dr. Harrison Reason for Referral: Consult Medical History Pertinent Medical History: Back Injury, HTN prostate cancer treated with seed radiation (no known metastases), GERD, unspecified disorder of lipoid metabolism, HTN Current History c/o low back pain in midline and significant b/l radiating leg pain x8 weeks. Closed compression fx of L5 lumbar vertebra; spinal stenosis of lumbar region, s/p L4-5 Lami 08/20/23. Pt transferred to [facility] 08/21/23 Social History Current Living Status: Alone Speech PLF-Current Status Prior Level of Function Independent with IADL's, communication Subjective The pt was awake, mildly drowsy. Complained of right leg pain throughout session. Participation in assessment was fair, the pt frequently interrupted to state that he did "not like this." Language Eval: Auditory Comprehends Simple Yes/No Ques: Functional Follows General Conversations: Functional Language Eval: Verbal Language Completes Spontaneous Greeting: Functional States Basic Personal Info: Functional Expresses Complex Ideas: Functional Objective Formal/Standardized Tests The SLUMS examination was administered. Results The pt scored 21/30 on the SLUMS, falling within the mild range of impairment for the screening measure. The pt was fully oriented. Work recall was 2/5, word generation was 12 animals in one minute. Clock drawing was decreased for number placement. Hand placement pointed to the correct numbers without differentiation between long and short hands. Recalling story details was at 3/4. The pt was able to report h/o back injury and surgery. He recalled a.m. treatment and learning to use log roll procedure for supine to sit, also was able to demonstrate and verbalize sequence for use of sock aid. He was able to recall details from conversation held at [employer] arrival with good accuracy as well. The pt reported that he has two daughters that live close and provide support as needed at home. Oral Motor/Speech Production WFL Impression The pt presented with performance falling in the mild range of cognitive impairment on a standardized screening tool. The pt demonstrated resistance to assessment, speech therapy services not recommended at this time due to low pt motivation and willingness to participate in cognitive exercise. Speech-Plan Treatment Plan Speech Therapy Treatment Plan: Discontinue ST Treatment Duration: Aug 21, 2023 Frequency: Modified Program (IRF) Estimated Hrs Per Day: Other Rehab Potential: Good Time Speech Therapy Time In: 13:10 Speech Therapy Time Out: 13:45 DATE: Aug 24, 2023 Total Billed Time: 35 Billed Treatment Time 1 KIA BRITO Aug 24, 2023 14:07
[2023-08-24 20:05] VITALS: BP 110/57
[2023-08-24] MEDS: ALPRAZolam 0.25 MG TABLET PO PRN (21:05)
[2023-08-24] MEDS: PANTOPRAZOLE 20 MG TABLET PO SCH (21:05)
[2023-08-25] MEDS: oxyCODONE IMMEDIATE RELEASE 5 MG TABLET PO PRN (02:54)
[2023-08-25 07:17] VITALS: BP 120/70
[2023-08-25] MEDS: ENALAPRIL 10 MG TABLET PO SCH ×2 (08:10→20:52)
[2023-08-25] MEDS: OMEGA 3 (FISH OIL) 1000 MG CAP PO SCH ×2 (08:10→20:52)
[2023-08-25] MEDS: TAMSULOSIN 0.4 MG (FLOMAX) CAP PO SCH (08:10)
[2023-08-25] MEDS: LORATADINE 10 MG TABLET PO SCH (08:10)
[2023-08-25] MEDS: ACETAMINOPHEN 500 MG TABLET PO SCH ×2 (08:10→20:52)
[2023-08-25] MEDS: FAMOTIDINE 20 MG TABLET PO SCH (08:10)
[2023-08-25] MEDS: BRIMONIDINE 0.2% OPHTH SOLN 5 ML BTL OP SCH ×2 (08:11→20:52)
[2023-08-25] MEDS: DOCUSATE SODIUM 100 MG CAPSULE PO SCH ×2 (08:12→20:43)
[2023-08-25] MEDS: SENNA W/DOCUSATE TABLET PO SCH ×2 (08:12→20:44)
--- NOTE | 2023-08-25 08:39 | Progress Note ---
IGANCIO GARVEY 08/25/23 0839: Progress Note 78 year old male, here for recovery from lumbar surgery with residual right leg weakness from radiculopathy. He has a history of prostate cancer, HTN, and EMILE on CPAP. We are pending results from a bone biopsy from his L5 compression fracture. On admission, patient has been limited due to the surgery and right leg radiculopathy. He is currently able to perform ADLs with moderate assistance, with the goal of treatment to have him be completely independent as he lives alone. He is having difficulty with pain in his right leg, which is controlled with oxycodone and tylenol. Patient still reports a 4/10 pain. He is doing well with PT/OT and doesn't report any exacerbation of the radiculopathy. He still hasn't had a bowel movement. JEN HOPPER DO 08/26/23 0425: Supervisory-Addendum Brief Verification & Attestation Participated in pt care: history, MDM, physical Personally performed: exam, history, MDM, supervision of care Care discussed with: Medical Student Procedures: n/a Results interpretation: Verified all documentation Verification and Attestation of Medical Student E/M Service A medical student performed and documented this service in my presence. I reviewed and verified all information documented by the medical student and made modifications to such information, when appropriate. I personally performed the physical exam and medical decision making. Jen Hopper, Aug 26, 2023,04:25 IGNACIO GARVEY Aug 25, 2023 08:39 JEN HOPPER DO Aug 26, 2023 04:25
--- NOTE | 2023-08-25 09:03 | Occupational Ther Daily Note ---
OT Current Status-Daily Note Subjective Pt agreeable to OT Tx, states his pain isn't too bad, but doesn't provide pain rating. Mental Status/Objective Patient Orientation: Person, Place, Time, Situation ADL-Treatment Therapy Code Descriptions/Definitions Functional [place] Measure: 0=Not Assessed/NA 4=Minimal Assistance 1=Total Assistance 5=Supervision or Setup 2=Maximal Assistance 6=Modified [place] 3=Moderate Assistance 7=Complete IndependenceSCALE: Activities may be completed with or without assistive devices. 4-Mwockyocws-bczukgb completes the activity by him/herself with no assistance from a helper. 5-Set-up or Clean-up Assistance-helper sets up or cleans up; patient completes activity. [place] assists only prior to or following the activity. 4-Supervision or Touching Assistance-helper provides verbal cues and/or touching/steadying and/or contact guard assistance as patient completes activity. Assistance may be provided throughout the activity or intermittently. 3-Partial/Moderate Assistance-helper does LESS THAN HALF the effort. [place] lifts, holds or supports trunk or limbs, but provides less than half the effort. 2-Substantial/Maximal Assistance-helper does MORE THAN HALF the effort. [place] lifts or holds trunk or limbs and provides more than half the effort. 1-Stulbbjha-dsdohr does ALL the effort. Patient does none of the effort to complete the activity. Or, the assistance of 2 or more helpers is required for the patient to complete the activity. If activity was not attempted, code reason: 7-Patient Refused. 9-Not Applicable-not attempted and the patient did not perform the activity before the current illness, exacerbation or injury. 10-Not Attempted due to Environmental Limitations-(lack of equipment, weather restraints, etc.). 88-Not Attempted due to Medical Conditions or Safety Concerns. Eating (QC): 6 Oral Hygiene (QC): 6 (seated) Shower/Bathe Self (QC): 4 (SBA, cues for back precautions) Upper Body Dressing (QC): 3 (Min A with back brace.) Lower Body Dressing (QC): 4 (SBA, VCS for AE and back precautions) On/Off Footwear: 3 (Mod A overall. Vcs for back precautions and AE.) Toileting Hygiene (QC): 4 (SBA) Toilet Transfer (QC): 4 (SBA) Mod-Max VCs required for adhering to back precautions. Poor recall of AE from previous session. Other Treatment Pt seated in recliner, sit to stand from recliner SBA, then SBA-CGA transfer to toilet using FWW. Pt completed toileting, then transferred to AK. Pt doffed clothes, completed shower, then donned clothes. Pt only able to recall 1/3 back precautions during tx, and required mod-max VCs to adhere to back precautions throughout ADLS. Pt had poor recall of AE from prior tx, requiring VCs for correct technique of equipment. When donning back brace, pt initially donned brace upside down, requiring VC and assistance to correct. Pt sat at sink to complete grooming tasks independently, then used FWW to transfer to recliner, [facility]. Pt required VCs with mobility for safety (keeping walker close to him, and keeping both hands on walker during transfer). Post tx, pt in recliner, call light in reach and all needs met. Education OT Patient Education: Correct positioning, Energy conservation, Modified ADL techniques, Progress toward Goal/Update tx plan, Purpose of tx/functional ac tivities, Reviewed precautions, Rehab process, Safety issues, Transfer techniques, Use of adapted equipment Teaching Recipient: Patient Teaching Methods: Discussion Response to Teaching: Reinforcement Needed OT Marketing Finance Manager Goals Alf Goals Time Frame: Sep 11, 2023 Acute change in mental status: 1 Inattention: 0 Disorganized thinkin Altered level of consciousness: 0 Eating (QC): 6 Oral Hygiene (QC): 6 Toileting Hygiene (QC): 6 Shower/Bathe Self (QC): 5 Upper Body Dressing (QC): 6 Lower Body Dressing (QC): 6 On/Off Footwear (QC): 6 Additional Goals: 1-Demonstrate ADL Tasks, 2-Verbalize Understanding, 3- ImproveStrength/Romeo 1=Demonstrate adherence to instructed precautions during ADL tasks. 2=Patient will verbalize/demonstrate understanding of assistive devices /modifications for ADL. 3=Patient will improve strength/tolerance for activity to enable patient to perform ADL's. OT Education/Plan Problem List/Assessment Assessment: Decreased Activ Tolerance, Decreased Safety Aware, Decreased UE Strength, Impaired Cognition, Impaired Funct Balance, Impaired I ADL's, Impaired Self-Care Skills Discharge Recommendations Plan/Recommendations: Continue POC Treatment Plan/Plan of Care Patient would benefit from OT for education, treatment and training to promote independence in ADL's, mobility, safety and/or upper extremity function for ADL's. Plan of Care: ADL Retraining, Functional Mobility, Group Exercise/Act as Ind, UE Funct Exercise/Act Treatment Duration: Sep 11, 2023 Frequency: At least 5 of 7 days/Wk (IRF) Estimated Hrs Per Day: 1.5 hours per day Agreement: Yes Rehab Potential: Good Time Start Time: 07:30 Stop Time: 09:00 DATE: Aug 25, 2023 Total Time Billed (hr/min): 90 Billed Treatment Time 1, ADL 6 JOHAN CORDERO OT Aug 25, 2023 09:03
--- NOTE | 2023-08-25 11:39 | Physical Therapy Daily Note ---
PT Daily Note-Current Subjective Pt was sitting in recliner wearing TLSO and B feet on floor. Pt agreed to tx. Pain denied /a tx. Pt reports pain increased to 2/10 during tx in R hip and 4/10 /p tx in R hip. Pain Section J - Health Conditions 1. Rarely or not at all 2. Occasionally 3. Frequently 4. Almost constantly 8. Unable to answer Pain Effect on Sleep: 3 Pain Interference with Therapy: 2 Pain Interference w/Day-to-Day: 3 Transfers SCALE: Activities may be completed with or without assistive devices. 9-Vhxoxaqmvb-chigqok completes the activity by him/herself with no assistance from a helper. 5-Set-up or Clean-up Assistance-helper sets up or cleans up; patient completes activity. [place] assists only prior to or following the activity. 4-Supervision or Touching Assistance-helper provides verbal cues and/or touching/steadying and/or contact guard assistance as patient completes activity. Assistance may be provided throughout the activity or intermittently. 3-Partial/Moderate Assistance-helper does LESS THAN HALF the effort. [place] lifts, holds or supports trunk or limbs, but provides less than half the effort. 2-Substantial/Maximal Assistance-helper does MORE THAN HALF the effort. [place] lifts or holds trunk or limbs and provides more than half the effort. 4-Mrnvhmcse-cwiszd does ALL the effort. Patient does none of the effort to complete the activity. Or, the assistance of 2 or more helpers is required for the patient to complete the activity. If activity was not attempted, code reason: 7-Patient Refused. 9-Not Applicable-not attempted and the patient did not perform the activity before the current illness, exacerbation or injury. 10-Not Attempted due to Environmental Limitations-(lack of equipment, weather restraints, etc.). 88-Not Attempted due to Medical Conditions or Safety Concerns. Sit to Stand (QC): 4 (Pt demonstrated good xfer skills with FWW, but required CGA for safety and vc's for hand placement.) Toilet Transfer (QC): 3 Weight Bearing Right Lower Extremity: Right Weight Bearing/Tolerated Left Lower Extremity: Left Weight Bearing/Tolerated Gait Training Does the Patient Walk?: Yes Walk 10 feet (QC): 4 Walk 50 ft with 2 Turns(QC): 4 Gait Assistive Device: FWW Exercises THER EX: Seated exercises B LE: marching x10x3, DF/PF ankle pumps x10x3, LAQ x10x2, Hip ABD /c red ther band x10x2, Hip ADD /c red ther band x10x2, HS stretch x 30sec x 2. Standing exercises: Side-stepping in II x 10 steps each side. NuStep Minutes: 15 NuStep Workload: 3 Treatments Pt conducted multiple sit<>stand xfers from chairs /c FWW and CGA for safety and vc's for hand placement. Pt amb from room to PT gym x 80' /c FWW, CGA for safety and vc/tc's for hand placement and walking close to walker for better balance. Pt transitioned to NuStep /c workload of 3, for 15min. Pt reported no pain on NuStep. Pt conducted seated ther ex and parallel bar ( II ) exercises for B hip and LE strengthening. Pt amb from PT gym to room x 80' /c FWW, CGA for safety and vc/tc's. Pt required a rest break once in room. Pt utilized restroom with toilet xfer /c FWW and CGA for safety. Pt returned to recliner at end of tx, with warm blanket, call light in hand and all needs met. Assessment Current Status: Good Progress Pt tolerated tx fair with B LE exercises. Pt was having hot flashes while in PT gym and required a rest break for water, secondary to Rx (pt states Rx "Lupron" gives him hot flashes). PT Short Term Goals Short Term Goals Time Frame: Aug 28, 2023 Roll Left & Right: 5 Sit to lyin Lying to sitting on side of be: 5 Sit to stand: 5 Chair/njd-vx-ayahx transfer: 5 Toilet transfer: 5 Car transfer: 5 Walk 10 feet: 5 Walk 50 feet with two turns: 5 Walk 150 feet: 5 Walking 10ft on uneven surface: 5 1 step (curb): 5 4 steps: 5 12 steps: 5 Picking up objects: 5 Does pt use a wc or scooter: No Wheel 50ft w/2 turns: 9 Wheel 150 feet: 9 Type: N/A PT Fdc Goals Fdc Goals PT Fdc Goals Time Frame: Sep 04, 2023 Roll Left & Right (QC): 6 Sit to Lying (QC): 6 Lying-Sitting on Side/Bed(QC): 6 Sit to Stand (QC): 6 Chair/Qec-zt-Gueez Xfer(QC): 6 Toilet Transfer (QC): 6 Car Transfer (QC): 6 Does the Patient Walk: Yes Walk 10 feet (QC): 6 Walk 50ft with 2 Turns (QC): 6 Walk 150 ft (QC): 6 Walking 10ft on Uneven Surface: 6 1 Step (curb) (QC): 6 4 Steps (QC): 6 12 Steps (QC): 6 Picking up an Object (QC): 6 Does the Pt use WC or Scooter?: No Wheel 50 feet with 2 turns (QC: 9 Type: N/A Wheel 150 feet: 9 Type: N/A PT Plan Problem List Problem List: Functional Strength, Safety, Gait, Bed Mobility Treatment/Plan Treatment Plan: Continue Plan of Care Treatment Plan: Bed Mobility, Education, Functional Activity Romeo, Functional Strength, Group Therapy, Gait, Safety, Therapeutic Exercise, Transfers Treatment Duration: Aug 21, 2023 Frequency: At least 5 of 7 days/Wk (IRF) Estimated Hrs Per Day: 1.5 hours per day Patient and/or Family Agrees t: Yes Safety Risks/Education Patient Education: Gait Training, Reviewed Precautions, Correct Positioning Teaching Recipient: Patient Teaching Methods: Demonstration, Discussion Response to Teaching: Verbalize Understanding Pt was able to verbalize understanding of pt education and precautions, but struggles returning demonstration Discharge Recommendations Plan Continue PT per pt POC. Will work on bed mobility and re-introduce leg antenna installer to assist with bed mobility at next tx. Time Time In: 0930 Time Out: 1100 DATE: Aug 25, 2023 Total Billed Treatment Time: 90 Total Billed Treatment 1, EX4 (60m), FA (15m), GT (15m) MARTA PA DIRECTOR OF TAX SERVICES Aug 25, 2023 11:38
--- NOTE | 2023-08-25 11:58 | PM&R Progress Note ---
Subjective HPI/CC On Admission Date Seen by Provider: Aug 25, 2023 Time Seen by Provider: 10:45 Subjective/Events-last exam 08/25/2023: Patient doing pretty well Making some progress Pain is still present in the right leg Awaiting bone biopsy results 08/24/2023: About the same except drowsy from Oxycodone No BM yet so will initiate supp and more laxatives Reviewed meds 08/23/2023: Patient doing much better Oxycodone had help with the pain last night and he did sleep Talking more about his right leg and right leg pain 08/22/2023: Patient had a lot more pain Did not get to sleep very much Labs are stable Bowels have not moved so we will initiate meds for that Added oxycodone and increased dose of hydrocodone Review of Systems General: Fatigue, Malaise Objective Exam Vital Signs Vital Signs Date Time Temp Pulse Resp B/P (MAP) Pulse Ox O2 Delivery O2 Flow Rate FiO2 08/25/23 20:10 Room Air 08/25/23 19:53 36.6 92 16 111/59 (76) 94 Capillary Refill : General Appearance: No Apparent Distress, WD/WN, Chronically ill HEENT: PERRL/EOMI, Normal ENT Inspection, Pharynx Normal Neck: Full Range of Motion, Normal Inspection, Non Tender, Supple, Carotid Bruit Respiratory: Chest Non Tender, Lungs Clear, Normal Breath Sounds, No Accessory Muscle Use, No Respiratory Distress Cardiovascular: Regular Rate, Rhythm, No Edema, No Gallop, No JVD, No Murmur, Normal Peripheral Pulses Gastrointestinal: Normal Bowel Sounds, No Organomegaly, No Pulsatile Mass, Non Tender, Soft Back: Normal Inspection, No CVA Tenderness, No Vertebral Tenderness Extremity: Normal Capillary Refill, Normal Inspection, Normal Range of Motion, Non Tender, No Calf Tenderness, No Pedal Edema Neurologic/Psychiatric: Alert, Oriented x3, slitting machine operator II-XII Norm as Tested, Abnormal Gait, Depressed Affect, Motor Weakness (right leg 3/5) Skin: Normal Color, Warm/Dry Lymphatic: No Adenopathy Results/Procedures Lab Patient resulted labs reviewed. FIM Transfers Therapy Code Descriptions/Definitions Functional [place] Measure: 0=Not Assessed/NA 4=Minimal Assistance 1=Total Assistance 5=Supervision or Setup 2=Maximal Assistance 6=Modified [place] 3=Moderate Assistance 7=Complete IndependenceSCALE: Activities may be completed with or without assistive devices. 2-Qlwqvsinju-mjqhqrz completes the activity by him/herself with no assistance from a helper. 5-Set-up or Clean-up Assistance-helper sets up or cleans up; patient completes activity. [place] assists only prior to or following the activity. 4-Supervision or Touching Assistance-helper provides verbal cues and/or touching/steadying and/or contact guard assistance as patient completes activity. Assistance may be provided throughout the activity or intermittently. 3-Partial/Moderate Assistance-helper does LESS THAN HALF the effort. [place] lifts, holds or supports trunk or limbs, but provides less than half the effort. 2-Substantial/Maximal Assistance-helper does MORE THAN HALF the effort. [place] lifts or holds trunk or limbs and provides more than half the effort. 9-Dgwzbkawd-qjlexc does ALL the effort. Patient does none of the effort to complete the activity. Or, the assistance of 2 or more helpers is required for the patient to complete the activity. If activity was not attempted, code reason: 7-Patient Refused. 9-Not Applicable-not attempted and the patient did not perform the activity before the current illness, exacerbation or injury. 10-Not Attempted due to Environmental Limitations-(lack of equipment, weather restraints, etc.). 88-Not Attempted due to Medical Conditions or Safety Concerns. Roll Left to Right (QC): 3 (min-mod(A) with v.c. and instruction for log rolling) Sit to Lying (QC): 3 (mod (A) with v.c. for log rolling, assist with (R) LE) Sit to Stand (QC): 4 (CGA /c v.c. for hand placement from armchair, elevated tovar mat, Nustep, armchair x 2, 3-in-1 commode.) Chair/Zwn-nu-Shivr Xfer(QC): 3 (Min (A) with FWW due to short step length (B) and need for cues to complete turn) Car Transfer (QC): 3 Gait Training Does the Patient Walk?: Yes Distance: 57', 57'. 72' Walk 10 feet (QC): 3 (min (A) c FWW) Walk 50 ft with 2 Turns(QC): 3 (min (A) with FWW) Walk 150 ft (QC): 3 Walking 10ft/uneven surface-QC: 3 Gait Assistive Device: FWW Wheelchair Training Does the Pt Use a Wheelchair?: No Wheel 50 ft with 2 turns (QC): 9 Wheel 150 ft (QC): 9 Type of Wheelchair: N/A Stair Training #of Steps: 12 1 Step (curb) (QC): 3 4 Steps (QC): 3 12 Steps (QC): 3 Balance Picking up an Object (QC): 88 ADL-Treatment Eating (QC): 6 Oral Hygiene (QC): 6 (seated) Shower/Bathe Self (QC): 4 (SBA, cues for back precautions) Upper Body Dressing (QC): 3 (Min A with back brace.) Lower Body Dressing (QC): 4 (SBA, VCS for AE and back precautions) On/Off Footwear (QC): 3 (Mod A overall. 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
[2023-08-25] MEDS: ONDANSETRON 4 MG ORAL DISSOLVE TABLET PO PRN (12:47)
[2023-08-25] MEDS: ACETAMINOPHEN 325 MG TABLET PO PRN (13:03)
--- NOTE | 2023-08-25 14:12 | Speech Therapy Progress Note ---
Therapy Progress Note Discussion was completed with care team. At this time, the pt is demonstrating impulsive behavior during treatment, with poor recall of safety precautions and use of adaptive equipment needed to optimize safety during completion of ADL's. Speech therapy to initiate treatment to focus on learning and recall of safety precautions and use of adaptive equipment, with goals as follows: 1. The pt will utilize memory strategies to recall 3/3 basic safety precautions with 90% accuracy. 2. The pt will verbalize reasons for precautions with 90% accuracy. 3. The pt will complete problem-solving for use of appropriate adaptive device when provided with functional situations with 90% accuracy. Frequency: 5/7 days/week Duration: 30 min/day KIA SORIA Aug 25, 2023 14:12
--- NOTE | 2023-08-25 15:50 | Speech Therapy Daily Note ---
Speech Daily Progress Note Subjective Date Seen by Provider: Aug 25, 2023 ([id number]) Time Seen by Provider: 15:15 The pt was awake and alert, with good participation in session. Objective Recall and re-statement of safety precautions was at 2/3 at beginning of session. When cued with acronym, the pt continued to have 2/3 recall. These restrictions were recalled in intervals throughout session, with 100% accuracy for 5/5 trials in the last half of session. The pt was able to state reasoning for restrictions with good accuracy. The pt identified adaptive equipment (vehicle service agent and sock aid), and was able to apply use of each aid to safety precautions with min/mod cues needed. The pt demonstrated use of sock aid, and dropped one holding rope to the floor. He immediately started to bend, then stopped immediately when cued. He retrieved sock string with the vehicle service agent to complete task. Hypothetical situations were provided, the pt identified which adaptive aid to use and why with 90% accuracy. Assessment Assessment Current Status: Good Progress Immediate and short-term recall of safety precautions was good during session. Treatment Plan Continue Plan of Care Speech-Plan Treatment Plan Speech Therapy Treatment Plan: Continue Plan of Care Treatment Duration: Aug 21, 2023 Frequency: At least 5 of 7 days/Wk (IRF) Estimated Hrs Per Day: Other (30 minutes) Rehab Potential: Good Pt/Family Agrees to Plan: Yes Safety Risks/Education Teaching Recipient: Patient Teaching Methods: Demonstration, Discussion Response to Teaching: Verbalize Understanding, Return Demonstration Education Topics Provided: Safety precautions Time Speech Therapy Time In: 15:15 Speech Therapy Time Out: 15:45 DATE: Aug 25, 2023 Total Billed Time: 30 Billed Treatment Time 1 SLPRICILLA (30) KIA SORIA Aug 25, 2023 15:50
[2023-08-25] MEDS: CALCIUM CARBONATE 500 MG CHEW TABLET PO PRN (17:34)
[2023-08-25 19:53] VITALS: BP 111/59
[2023-08-25] MEDS: HYDROcodone/ACETAMINOPHEN 10/325 TABLET PO PRN (20:52)
[2023-08-25] MEDS: PANTOPRAZOLE 20 MG TABLET PO SCH (20:52)
[2023-08-25] MEDS: ALPRAZolam 0.25 MG TABLET PO PRN (20:52)
[2023-08-26] MEDS: oxyCODONE IMMEDIATE RELEASE 5 MG TABLET PO PRN ×2 (00:58→21:09)
[2023-08-26 07:37] VITALS: BP 128/71
[2023-08-26] MEDS: TAMSULOSIN 0.4 MG (FLOMAX) CAP PO SCH (07:50)
[2023-08-26] MEDS: ACETAMINOPHEN 500 MG TABLET PO SCH ×2 (07:51→21:08)
[2023-08-26] MEDS: FAMOTIDINE 20 MG TABLET PO SCH (07:52)
[2023-08-26] MEDS: OMEGA 3 (FISH OIL) 1000 MG CAP PO SCH ×2 (07:52→21:09)
[2023-08-26] MEDS: ENALAPRIL 10 MG TABLET PO SCH ×2 (07:52→21:08)
[2023-08-26] MEDS: LORATADINE 10 MG TABLET PO SCH (07:52)
[2023-08-26] MEDS: BRIMONIDINE 0.2% OPHTH SOLN 5 ML BTL OP SCH ×2 (07:53→21:58)
[2023-08-26] MEDS: SENNA W/DOCUSATE TABLET PO SCH ×2 (07:54→21:23)
[2023-08-26] MEDS: DOCUSATE SODIUM 100 MG CAPSULE PO SCH ×2 (07:55→21:09)
--- NOTE | 2023-08-26 08:15 | Occupational Ther Daily Note ---
OT Current Status-Daily Note Subjective Pt agreeable to OT Tx, rates pain 4/10 in R leg. Mental Status/Objective Patient Orientation: Person, Place, Time, Situation ADL-Treatment Therapy Code Descriptions/Definitions Functional [place] Measure: 0=Not Assessed/NA 4=Minimal Assistance 1=Total Assistance 5=Supervision or Setup 2=Maximal Assistance 6=Modified [place] 3=Moderate Assistance 7=Complete IndependenceSCALE: Activities may be completed with or without assistive devices. 4-Vklkdxjirq-ugvtjcc completes the activity by him/herself with no assistance from a helper. 5-Set-up or Clean-up Assistance-helper sets up or cleans up; patient completes activity. [place] assists only prior to or following the activity. 4-Supervision or Touching Assistance-helper provides verbal cues and/or touching/steadying and/or contact guard assistance as patient completes activity. Assistance may be provided throughout the activity or intermittently. 3-Partial/Moderate Assistance-helper does LESS THAN HALF the effort. [place] lifts, holds or supports trunk or limbs, but provides less than half the effort. 2-Substantial/Maximal Assistance-helper does MORE THAN HALF the effort. [place] lifts or holds trunk or limbs and provides more than half the effort. 9-Ryxarjfdd-qtsmqq does ALL the effort. Patient does none of the effort to complete the activity. Or, the assistance of 2 or more helpers is required for the patient to complete the activity. If activity was not attempted, code reason: 7-Patient Refused. 9-Not Applicable-not attempted and the patient did not perform the activity befo re the current illness, exacerbation or injury. 10-Not Attempted due to Environmental Limitations-(lack of equipment, weather re straints, etc.). 88-Not Attempted due to Medical Conditions or Safety Concerns. Eating (QC): 6 Oral Hygiene (QC): 6 On/Off Footwear: 3 (Min A with slip on shoes. Mod VCs for AE and precautions) Toileting Hygiene (QC): 4 (SBA) Toilet Transfer (QC): 4 (SBA on/off bsc over toilet.) Other Treatment Pt performed functional mobility from recliner to BS over toilet, using FWW, CGA-SBA. Pt completed toileting with SBA. Pt transferred to seat at sink, completed grooming tasks independently seated. Pt returned to recliner, SBA. Pt doffed shoes without VCs, but required mod VCs to don shoes using AE while adhering to back precautions. Pt attempted to bend forward several times throughout task. Pt dropped object on floor, and attempted to reach forward although contraindicated with his back precautions. OT cued pt to stop, and asked him how he was supposed to knot picker cloth an object, pt then able to point to founder president and ceo. Once OT handed pt the founder president and ceo, he could knot picker cloth object. Pt performed functional mobility to therapy gym using FWW, SBA. OT tx focused on increasing BUE strength and activity tolerance. Pt completed UE reaching task, 1lb wrist weights BUEs. Pt removed nuts/bolts from block, manipulated items in hand, then placed back onto the block, completing x15 total. Pt appeared tired during task, having a difficult time keeping his eyes open during task. Pt then performed functional mobility using FWW around [facility], [facility]. Pt had a shuffling gait, barley picking his feet up off of the floor. Pt states he is having a rough morning and had difficulty getting out of bed. OT reinforced education with leg community health consultant. Pt used FWW to return to his room, [facility]. post tx, pt in recliner, call light in reach and all needs met. Education OT Patient Education: Correct positioning, Energy conservation, Modified ADL techniques, Progress toward Goal/Update tx plan, Purpose of tx/functional activities, Rehab process Teaching Recipient: Patient Teaching Methods: Discussion Response to Teaching: Verbalize Understanding OT Hide Curer Goals Care Home Goals Time Frame: Sep 11, 2023 Acute change in mental status: 1 Inattention: 0 Disorganized thinkin Altered level of consciousness: 0 Eating (QC): 6 Oral Hygiene (QC): 6 Toileting Hygiene (QC): 6 Shower/Bathe Self (QC): 5 Upper Body Dressing (QC): 6 Lower Body Dressing (QC): 6 On/Off Footwear (QC): 6 Additional Goals: 1-Demonstrate ADL Tasks, 2-Verbalize Understanding, 3- ImproveStrength/Romeo 1=Demonstrate adherence to instructed precautions during ADL tasks. 2=Patient will verbalize/demonstrate understanding of assistive devices/modifications for ADL. 3=Patient will improve strength/tolerance for activity to enable patient to perform ADL's. OT Education/Plan Problem List/Assessment Assessment: Decreased Activ Tolerance, Decreased Safety Aware, Decreased UE Strength, Impaired Cognition, Impaired Funct Balance, Impaired I ADL's, Impaired Self-Care Skills Discharge Recommendations Plan/Recommendations: Continue POC Treatment Plan/Plan of Care Patient would benefit from OT for education, treatment and training to promote independence in ADL's, mobility, safety and/or upper extremity function for ADL's. Plan of Care: ADL Retraining, Functional Mobility, Group Exercise/Act as Ind, UE Funct Exercise/Act Treatment Duration: Sep 11, 2023 Frequency: At least 5 of 7 days/Wk (IRF) Estimated Hrs Per Day: 1.5 hours per day Agreement: Yes Rehab Potential: Good Time Start Time: 07:30 Stop Time: 08:45 DATE: Aug 26, 2023 Total Time Billed (hr/min): 75 Billed Treatment Time 1, ADL 2 (30'), FA 3 (45') JOHAN CORDERO OT Aug 26, 2023 08:15
--- NOTE | 2023-08-26 08:29 | Progress Note ---
IGNACIO GARVEY 08/26/23 0829: Progress Note 78 year old male, here for recovery from lumbar surgery with residual right leg weakness from radiculopathy. He has a history of prostate cancer, HTN, and EMILE on CPAP. On admission, patient has been limited due to the surgery and right leg radiculopathy. He is currently able to perform ADLs with moderate assistance, with the goal of treatment to have him be completely independent as he lives alone. He is having difficulty with pain in his right leg, which is controlled with oxycodone and tylenol. Patient still reports a 4/10 pain, worse in the morning. He is doing well with PT/OT. He was able to have a bowel movement yesterday and today. Seems concerned about how he is going to function when he goes home. Reassured that we will work with family to make sure he is taken care of. He is having pain over his right greater trochanter and would like to use a topical arthritis cream on it. Daughter called with bone biopsy results confirming there is no prostate cancer metastasis to bone. He does have osteoporosis which can be handled by primary care. JEN HOPPER DO 08/26/232022: Supervisory-Addendum Brief Verification & Attestation Participated in pt care: history, MDM, physical Personally performed: exam, history, MDM, supervision of care Care discussed with: Medical Student Procedures: n/a Results interpretation: Verified all documentation Verification and Attestation of Medical Student E/M Service A medical student performed and documented this service in my presence. I reviewed and verified all information documented by the medical student and made modifications to such information, when appropriate. I personally performed the physical exam and medical decision making. Jen Hopper, Aug 26, 2023,20:23 IGNACIO GARVEY Aug 26, 2023 08:29 JEN HOPPER DO Aug 26, 2023 20:23
--- NOTE | 2023-08-26 11:07 | Physical Therapy Daily Note ---
PT Daily Note-Current Subjective Pt presents amb /c FWW in hallway with nursing students. Pt reports 2/10 pain in R hip (greater trochanter area). Pt requests arthritis cream from home to put on R hip; nursing staff has addressed this. Pt agrees to tx. Pt's girlfriend attended part of tx. Pain Section J - Health Conditions 1. Rarely or not at all 2. Occasionally 3. Frequently 4. Almost constantly 8. Unable to answer Pain Effect on Sleep: 3 Pain Interference with Therapy: 2 Pain Interference w/Day-to-Day: 3 Transfers SCALE: Activities may be completed with or without assistive devices. 3-Iifmfinkfo-qlomzft completes the activity by him/herself with no assistance from a helper. 5-Set-up or Clean-up Assistance-helper sets up or cleans up; patient completes activity. [place] assists only prior to or following the activity. 4-Supervision or Touching Assistance-helper provides verbal cues and/or touching/steadying and/or contact guard assistance as patient completes activity. Assistance may be provided throughout the activity or intermittently. 3-Partial/Moderate Assistance-helper does LESS THAN HALF the effort. [place] lifts, holds or supports trunk or limbs, but provides less than half the effort. 2-Substantial/Maximal Assistance-helper does MORE THAN HALF the effort. [place] lifts or holds trunk or limbs and provides more than half the effort. 1-Symewpndz-nbugov does ALL the effort. Patient does none of the effort to complete the activity. Or, the assistance of 2 or more helpers is required for the patient to complete the activity. If activity was not attempted, code reason: 7-Patient Refused. 9-Not Applicable-not attempted and the patient did not perform the activity before the current illness, exacerbation or injury. 10-Not Attempted due to Environmental Limitations-(lack of equipment, weather restraints, etc.). 88-Not Attempted due to Medical Conditions or Safety Concerns. Sit to Lying (QC): 3 (Pt requires ModA with use of leg governor assembler hydraulic.) Lying to Sitting/Side of Bed(Q: 3 (Pt requires ModA with use of leg governor assembler hydraulic.) Sit to Stand (QC): 4 Chair/Pgg-mc-Xkytb Xfer(QC): 4 Toilet Transfer (QC): 4 Weight Bearing Right Lower Extremity: Right Weight Bearing/Tolerated Left Lower Extremity: Left Weight Bearing/Tolerated Gait Training Does the Patient Walk?: Yes Walk 10 feet (QC): 4 Walk 50 ft with 2 Turns(QC): 4 Gait Assistive Device: FWW AMB /c FWW, CGA (for safety & vc/tc's for hand placement and standing closer to walker): 40' x 2, 94' x 2, 60' x 2. Pt required multiple breaks secondary to fatigue and pain. Exercises THER EX: B LE x 10 x 2--HS Stretch (15s x 2), Marching, LAQ, Ankle pumps. NuStep Minutes: 15 NuStep Workload: 3 Treatments Tx session was started with continuation of pt amb /c FWW, CGA, in hallway with nursing students handing pt over to MANUFACTURING COST ESTIMATOR. Pt amb to his recliner in room and conducted B HS stretch to "warm-up" legs. Pt amb /c FWW, CGA from room to end of hallway with window, requiring multiple rest breaks secondary to fatigue and pain. Pt amb /c FWW, CGA, from end of hallway to PT gym, and sat on therapy bed. MANUFACTURING COST ESTIMATOR demonstrated bed mobility for pt and educated pt on importance of protecting his back. Pt performed bed mobility on L & R, /c leg governor assembler hydraulic to assist pt in raising R leg on bed secondary to pain in R hip. Pt conducted B LE ther ex on EOB. Pt amb to NuStep and performed 15 min bicycling at 3 workload. Pt amb /c FWW, CGA, from PT gym to room. Pt utilized the restroom and conducted toilet xfer with FWW CGA. Pt ended tx in recliner, with call light in hand and all needs met. Assessment Current Status: Good Progress Pt walked further today with no LOB. Pt appeared to be in better spirits today and was more active during tx. Pt ankles appear to MANUFACTURING COST ESTIMATOR to have moderate pitting edema. PT Short Term Goals Short Term Goals Time Frame: Aug 28, 2023 Roll Left & Right: 5 Sit to lyin Lying to sitting on side of be: 5 Sit to stand: 5 Chair/xdv-ai-ioiyx transfer: 5 Toilet transfer: 5 Car transfer: 5 Walk 10 feet: 5 Walk 50 feet with two turns: 5 Walk 150 feet: 5 Walking 10ft on uneven surface: 5 1 step (curb): 5 4 steps: 5 12 steps: 5 Picking up objects: 5 Does pt use a wc or scooter: No Wheel 50ft w/2 turns: 9 Wheel 150 feet: 9 Type: N/A PT Slide Fasteners Inspector Goals Slide Fasteners Inspector Goals PT Mcc Goals Time Frame: Sep 04, 2023 Roll Left & Right (QC): 6 Sit to Lying (QC): 6 Lying-Sitting on Side/Bed(QC): 6 Sit to Stand (QC): 6 Chair/Eej-vv-Wirza Xfer(QC): 6 Toilet Transfer (QC): 6 Car Transfer (QC): 6 Does the Patient Walk: Yes Walk 10 feet (QC): 6 Walk 50ft with 2 Turns (QC): 6 Walk 150 ft (QC): 6 Walking 10ft on Uneven Surface: 6 1 Step (curb) (QC): 6 4 Steps (QC): 6 12 Steps (QC): 6 Picking up an Object (QC): 6 Does the Pt use WC or Scooter?: No Wheel 50 feet with 2 turns (QC: 9 Type: N/A Wheel 150 feet: 9 Type: N/A PT Plan Problem List Problem List: Functional Strength, Safety, Balance, Bed Mobility Treatment/Plan Treatment Plan: Continue Plan of Care Treatment Plan: Bed Mobility, Education, Functional Activity Romeo, Functional Strength, Group Therapy, Gait, Safety, Therapeutic Exercise, Transfers Treatment Duration: Aug 21, 2023 Frequency: At least 5 of 7 days/Wk (IRF) Estimated Hrs Per Day: 1.5 hours per day Patient and/or Family Agrees t: Yes Safety Risks/Education Patient Education: Transfer Techniques, Reviewed Precautions, Correct Positioning, Safety Issues Teaching Recipient: Patient, Significant Other Teaching Methods: Demonstration, Discussion Response to Teaching: Verbalize Understanding, Return Demonstration, Reinforcement Needed Discharge Recommendations Plan Will continue tx per pt POC. Will continue to practice utilizing leg governor assembler hydraulic for more confident/independent bed mobility. Will practice neuromuscular reeducation for stabilization and balance. Time Time In: 924 Time Out: 1054 DATE: Aug 26, 2023 Total Billed Treatment Time: 90 Total Billed Treatment 1, GT3 (45m), FA2 (30m), EX (15m) MARTA PA MANUFACTURING COST ESTIMATOR Aug 26, 2023 11:07
[2023-08-26] MEDS: DICLOFENAC 1% GEL 50 GM TUBE TOP SCH ×5 (11:45→21:24)
[2023-08-26] MEDS: ACETAMINOPHEN 325 MG TABLET PO PRN (13:14)
--- NOTE | 2023-08-26 14:20 | Speech Therapy Daily Note ---
Speech Daily Progress Note Subjective Date Seen by Provider: Aug 26, 2023 Time Seen by Provider: 13:05 The pt was awake and alert, appropriate interaction throughout session. Objective The pt had 2/3 recall of basic precautions. With cueing, recall was 3/3 over 5 trials for duration of session. The pt was able to identify safety risk given functional situations with 90% accuracy. The pt competed task of doffing and donning shoes with adapative equipment within reach. The pt independently used devices, and changed devices as needed, e.g. exchanged shoe horn for metal template maker appropriately when shoe was out of reach. He started to bend forward x2, but independently stopped himself from forward bending both times and used equipment instead. The pt verbalized need for grabbing device for use at home for bed mobility, and recalled to inquire about device with nursing at end of session. Assessment Assessment Current Status: Good Progress Treatment Plan Continue Plan of Care Speech-Plan Treatment Plan Speech Therapy Treatment Plan: Continue Plan of Care Treatment Duration: Aug 21, 2023 Frequency: At least 5 of 7 days/Wk (IRF) Estimated Hrs Per Day: Other (30 minutes) Rehab Potential: Good Time Speech Therapy Time In: 13:05 Speech Therapy Time Out: 13:40 DATE: Aug 26, 2023 Total Billed Time: 35 Billed Treatment Time 1 SLTS (35 minutes) KIA SORIA Aug 26, 2023 14:20
--- NOTE | 2023-08-26 16:38 | PM&R Progress Note ---
Subjective HPI/CC On Admission Date Seen by Provider: Aug 26, 2023 Time Seen by Provider: 11:00 Subjective/Events-last exam 08/26/2023: Doing better Bone biopsy no evidence of cancer Reviewed meds and labs 08/25/2023: Patient doing pretty well Making some progress Pain is still present in the right leg Awaiting bone biopsy results 08/24/2023: About the same except drowsy from Oxycodone No BM yet so will initiate supp and more laxatives Reviewed meds 08/23/2023: Patient doing much better Oxycodone had help with the pain last night and he did sleep Talking more about his right leg and right leg pain 08/22/2023: Patient had a lot more pain Did not get to sleep very much Labs are stable Bowels have not moved so we will initiate meds for that Added oxycodone and increased dose of hydrocodone Review of Systems General: Fatigue, Malaise Objective Exam Vital Signs Vital Signs Date Time Temp Pulse Resp B/P (MAP) Pulse Ox O2 Delivery O2 Flow Rate FiO2 08/26/23 20:36 36.7 88 20 131/76 (94) 96 Room Air Capillary Refill : General Appearance: No Apparent Distress, WD/WN, Chronically ill HEENT: PERRL/EOMI, Normal ENT Inspection, Pharynx Normal Neck: Full Range of Motion, Normal Inspection, Non Tender, Supple, Carotid Bruit Respiratory: Chest Non Tender, Lungs Clear, Normal Breath Sounds, No Accessory Muscle Use, No Respiratory Distress Cardiovascular: Regular Rate, Rhythm, No Edema, No Gallop, No JVD, No Murmur, Normal Peripheral Pulses Gastrointestinal: Normal Bowel Sounds, No Organomegaly, No Pulsatile Mass, Non Tender, Soft Back: Normal Inspection, No CVA Tenderness, No Vertebral Tenderness Extremity: Normal Capillary Refill, Normal Inspection, Normal Range of Motion, Non Tender, No Calf Tenderness, No Pedal Edema Neurologic/Psychiatric: Alert, Oriented x3, neuro urologist II-XII Norm as Tested, Abnormal Gait, Depressed Affect, Motor Weakness (right leg 3/5) Skin: Normal Color, Warm/Dry Lymphatic: No Adenopathy Results/Procedures Lab Patient resulted labs reviewed. FIM Transfers Therapy Code Descriptions/Definitions Functional [place] Measure: 0=Not Assessed/NA 4=Minimal Assistance 1=Total Assistance 5=Supervision or Setup 2=Maximal Assistance 6=Modified [place] 3=Moderate Assistance 7=Complete IndependenceSCALE: Activities may be completed with or without assistive devices. 4-Tevalsrvav-dtgoikr completes the activity by him/herself with no assistance from a helper. 5-Set-up or Clean-up Assistance-helper sets up or cleans up; patient completes activity. [place] assists only prior to or following the activity. 4-Supervision or Touching Assistance-helper provides verbal cues and/or touching/steadying and/or contact guard assistance as patient completes activity. Assistance may be provided throughout the activity or intermittently. 3-Partial/Moderate Assistance-helper does LESS THAN HALF the effort. [place] lift s, holds or supports trunk or limbs, but provides less than half the effort. 2-Substantial/Maximal Assistance-helper does MORE THAN HALF the effort. [place] lifts or holds trunk or limbs and provides more than half the effort. 3-Okiuztifi-uuixla does ALL the effort. Patient does none of the effort to complete the activity. Or, the assistance of 2 or more helpers is required for the patient to complete the activity. If activity was not attempted, code reason: 7-Patient Refused. 9-Not Applicable-not attempted and the patient did not perform the activity before the current illness, exacerbation or injury. 10-Not Attempted due to Environmental Limitations-(lack of equipment, weather restraints, etc.). 88-Not Attempted due to Medical Conditions or Safety Concerns. Roll Left to Right (QC): 3 (min-mod(A) with v.c. and instruction for log rolling) Sit to Lying (QC): 3 (Pt requires ModA with use of leg sand worker.) Sit to Stand (QC): 4 Chair/Fvz-px-Tndnj Xfer(QC): 4 Car Transfer (QC): 3 Gait Training Does the Patient Walk?: Yes Distance: 57', 57'. 72' Walk 10 feet (QC): 4 Walk 50 ft with 2 Turns(QC): 4 Walk 150 ft (QC): 3 Walking 10ft/uneven surface-QC: 3 Gait Assistive Device: FWW Wheelchair Training Does the Pt Use a Wheelchair?: No Wheel 50 ft with 2 turns (QC): 9 Wheel 150 ft (QC): 9 Type of Wheelchair: N/A Stair Training #of Steps: 12 1 Step (curb) (QC): 3 4 Steps (QC): 3 12 Steps (QC): 3 Balance Picking up an Object (QC): 88 ADL-Treatment Eating (QC): 6 Oral Hygiene (QC): 6 Shower/Bathe Self (QC): 4 (SBA, cues for back precautions) Upper Body Dressing (QC): 3 (Min A with back brace.) Lower Body Dressing (QC): 4 (SBA, VCS for AE and back precautions) On/Off Footwear (QC): 3 (Min A with slip on shoes. Mod VCs for AE and precautions) Toileting Hygiene (QC): 4 (SBA) Toilet Transfer (QC): 4 (SBA on/off bsc over toilet.) Assessment/Plan Assessment and Plan Assess & Plan/Chief Complaint Assessment: Lumbar stenosis s/p surgery with slow recovery Right leg residual weakness from radiculopathy Prostate cancer hx L5 compression fracture s/p bone biopsy HTN EMILE on CPAP Advanced age Plan: BM regimen PT OT Home meds CPAP 08/22/2023: Bowel regimen Increased pain meds 08/23/2023: Pain control Aggressive rehab 08/24/2023: Monitor closely Pain control 08/25/2023: Continue aggressive rehab 08/26/2023: Reassure Increase therapy (1) Lumbar spinal stenosis ROSAURA HOPPER DO Aug 26, 2023 16:38
[2023-08-26] MEDS: ONDANSETRON 4 MG ORAL DISSOLVE TABLET PO PRN (18:03)
[2023-08-26 20:36] VITALS: BP 131/76
[2023-08-26] MEDS: PANTOPRAZOLE 20 MG TABLET PO SCH (21:08)
[2023-08-26] MEDS: ALPRAZolam 0.25 MG TABLET PO PRN (21:09)
[2023-08-27] MEDS: HYDROcodone/ACETAMINOPHEN 10/325 TABLET PO PRN ×2 (01:05→18:13)
[2023-08-27] MEDS: oxyCODONE IMMEDIATE RELEASE 5 MG TABLET PO PRN ×2 (03:33→21:05)
--- NOTE | 2023-08-27 04:50 | PM&R Progress Note ---
Subjective HPI/CC On Admission Date Seen by Provider: Aug 27, 2023 Time Seen by Provider: 07:45 Subjective/Events-last exam 08/27/2023: Doing better Less pain Didn't sleep as well as night before No falls BM+ 08/26/2023: Doing better Bone biopsy no evidence of cancer Reviewed meds and labs 08/25/2023: Patient doing pretty well Making some progress Pain is still present in the right leg Awaiting bone biopsy results 08/24/2023: About the same except drowsy from Oxycodone No BM yet so will initiate supp and more laxatives Reviewed meds 08/23/2023: Patient doing much better Oxycodone had help with the pain last night and he did sleep Talking more about his right leg and right leg pain 08/22/2023: Patient had a lot more pain Did not get to sleep very much Labs are stable Bowels have not moved so we will initiate meds for that Added oxycodone and increased dose of hydrocodone Review of Systems General: Fatigue, Malaise Objective Exam Vital Signs Vital Signs Date Time Temp Pulse Resp B/P (MAP) Pulse Ox O2 Delivery O2 Flow Rate FiO2 08/27/23 20:23 Room Air 08/27/23 19:07 36.2 89 21 153/77 (102) 91 Capillary Refill : General Appearance: No Apparent Distress, WD/WN, Chronically ill HEENT: PERRL/EOMI, Normal ENT Inspection, Pharynx Normal Neck: Full Range of Motion, Normal Inspection, Non Tender, Supple, Carotid Bruit Respiratory: Chest Non Tender, Lungs Clear, Normal Breath Sounds, No Accessory Muscle Use, No Respiratory Distress Cardiovascular: Regular Rate, Rhythm, No Edema, No Gallop, No JVD, No Murmur, Normal Peripheral Pulses Gastrointestinal: Normal Bowel Sounds, No Organomegaly, No Pulsatile Mass, Non Tender, Soft Back: Normal Inspection, No CVA Tenderness, No Vertebral Tenderness Extremity: Normal Capillary Refill, Normal Inspection, Normal Range of Motion, Non Tender, No Calf Tenderness, No Pedal Edema Neurologic/Psychiatric: Alert, Oriented x3, accountant controller II-XII Norm as Tested, Abnormal Gait, Depressed Affect, Motor Weakness (right leg 3/5) Skin: Normal Color, Warm/Dry Lymphatic: No Adenopathy Results/Procedures Lab Patient resulted labs reviewed. FIM Transfers Therapy Code Descriptions/Definitions Functional [place] Measure: 0=Not Assessed/NA 4=Minimal Assistance 1=Total Assistance 5=Supervision or Setup 2=Maximal Assistance 6=Modified [place] 3=Moderate Assistance 7=Complete IndependenceSCALE: Activities may be completed with or without assistive devices. 2-Xvmdtprkmk-fmdgpll completes the activity by him/herself with no assistance from a helper. 5-Set-up or Clean-up Assistance-helper sets up or cleans up; patient completes activity. [place] assists only prior to or following the activity. 4-Supervision or Touching Assistance-helper provides verbal cues and/or touching/steadying and/or contact guard assistance as patient completes activity. Assistance may be provided throughout the activity or intermittently. 3-Partial/Moderate Assistance-helper does LESS THAN HALF the effort. [place] lifts, holds or supports trunk or limbs, but provides less than half the effort. 2-Substantial/Maximal Assistance-helper does MORE THAN HALF the effort. [place] lifts or holds trunk or limbs and provides more than half the effort. 8-Dlugzxoho-dxibaa does ALL the effort. Patient does none of the effort to complete the activity. Or, the assistance of 2 or more helpers is required for the patient to complete the activity. If activity was not attempted, code reason: 7-Patient Refused. 9-Not Applicable-not attempted and the patient did not perform the activity before the current illness, exacerbation or injury. 10-Not Attempted due to Environmental Limitations-(lack of equipment, weather restraints, etc.). 88-Not Attempted due to Medical Conditions or Safety Concerns. Roll Left to Right (QC): 3 (min-mod(A) with v.c. and instruction for log rolling) Sit to Lying (QC): 3 (Pt requires ModA with use of leg roll forger.) Sit to Stand (QC): 4 Chair/Llj-qr-Uxggi Xfer(QC): 4 Car Transfer (QC): 3 Gait Training Does the Patient Walk?: Yes Distance: 57', 57'. 72' Walk 10 feet (QC): 4 Walk 50 ft with 2 Turns(QC): 4 Walk 150 ft (QC): 3 Walking 10ft/uneven surface-QC: 3 Gait Assistive Device: FWW Wheelchair Training Does the Pt Use a Wheelchair?: No Wheel 50 ft with 2 turns (QC): 9 Wheel 150 ft (QC): 9 Type of Wheelchair: N/A Stair Training #of Steps: 12 1 Step (curb) (QC): 3 4 Steps (QC): 3 12 Steps (QC): 3 Balance Picking up an Object (QC): 88 ADL-Treatment Eating (QC): 6 Oral Hygiene (QC): 6 Shower/Bathe Self (QC): 4 (SBA, cues for back precautions) Upper Body Dressing (QC): 3 (Min A with back brace.) Lower Body Dressing (QC): 4 (SBA, VCS for AE and back precautions) On/Off Footwear (QC): 3 (Min A with slip on shoes. Mod VCs for AE and precautions) Toileting Hygiene (QC): 4 (SBA) Toilet Transfer (QC): 4 (SBA on/off bsc over toilet.) Assessment/Plan Assessment and Plan Assess & Plan/Chief Complaint Assessment: Lumbar stenosis s/p surgery with slow recovery Right leg residual weakness from radiculopathy Prostate cancer hx L5 compression fracture s/p bone biopsy HTN EMILE on CPAP Advanced age Plan: BM regimen PT OT Home meds CPAP 08/22/2023: Bowel regimen Increased pain meds 08/23/2023: Pain control Aggressive rehab 08/24/2023: Monitor closely Pain control 08/25/2023: Continue aggressive rehab 08/26/2023: Reassure Increase therapy 08/27/2023: Monitor closely (1) Lumbar spinal stenosis ROSAURA HOPPER DO Aug 27, 2023 04:50
[2023-08-27 07:38] VITALS: BP 132/89
[2023-08-27] MEDS: SENNA W/DOCUSATE TABLET PO SCH ×2 (08:26→19:12)
[2023-08-27] MEDS: DICLOFENAC 1% GEL 50 GM TUBE TOP SCH ×5 (08:39→21:27)
[2023-08-27] MEDS: ACETAMINOPHEN 500 MG TABLET PO SCH ×2 (08:52→21:04)
[2023-08-27] MEDS: FAMOTIDINE 20 MG TABLET PO SCH (08:52)
[2023-08-27] MEDS: LORATADINE 10 MG TABLET PO SCH (08:52)
[2023-08-27] MEDS: OMEGA 3 (FISH OIL) 1000 MG CAP PO SCH ×2 (08:52→21:05)
[2023-08-27] MEDS: TAMSULOSIN 0.4 MG (FLOMAX) CAP PO SCH (08:52)
[2023-08-27] MEDS: ENALAPRIL 10 MG TABLET PO SCH ×2 (08:52→21:04)
[2023-08-27] MEDS: BRIMONIDINE 0.2% OPHTH SOLN 5 ML BTL OP SCH ×2 (08:54→21:27)
[2023-08-27] MEDS: DOCUSATE SODIUM 100 MG CAPSULE PO SCH ×2 (09:00→21:04)
--- NOTE | 2023-08-27 09:00 | Progress Note ---
IGNACIO GARVEY 08/27/23 0900: Progress Note 78 year old male, here for recovery from lumbar surgery with residual right leg weakness from radiculopathy. He has a history of prostate cancer, HTN, and EMILE on CPAP. On admission, patient has been limited due to the surgery and right leg radiculopathy. He is currently able to perform ADLs with moderate assistance, with the goal of treatment to have him be completely independent as he lives alone. He is having difficulty with pain in his right leg, which is controlled with oxycodone and tylenol. Patient still reports a 4/10 pain, worse in the morning. He is doing well with PT/OT. He is going to restart stool softeners since he hasn't had a bowel movement in more than 1 day. He is having pain over his right greater trochanter. We are starting diclofenac 1% gel PRN. Patient reports his radiculopathy is less painful today. JEN HOPPER DO 08/28/23 0439: Supervisory-Addendum Brief Verification & Attestation Participated in pt care: history, MDM, physical Personally performed: exam, history, MDM, supervision of care Care discussed with: Medical Student Procedures: n/a Results interpretation: Verified all documentation Verification and Attestation of Medical Student E/M Service A medical student performed and documented this service in my presence. I reviewed and verified all information documented by the medical student and made modifications to such information, when appropriate. I personally performed the physical exam and medical decision making. Jen Hopper Aug 28, 2023,04:39 IGNACIO GARVEY Aug 27, 2023 09:00 JEN HOPPER DO Aug 28, 2023 04:39
--- NOTE | 2023-08-27 09:34 | Occupational Ther Daily Note ---
OT Current Status-Daily Note Subjective Pt agreeable to OT Tx, rates pain 4/10 in RLE. Mental Status/Objective Patient Orientation: Person, Place, Time, Situation ADL-Treatment Therapy Code Descriptions/Definitions Functional [place] Measure: 0=Not Assessed/NA 4=Minimal Assistance 1=Total Assistance 5=Supervision or Setup 2=Maximal Assistance 6=Modified [place] 3=Moderate Assistance 7=Complete IndependenceSCALE: Activities may be completed with or without assistive devices. 5-Vbawbkatuz-mwvtayz completes the activity by him/herself with no assistance from a helper. 5-Set-up or Clean-up Assistance-helper sets up or cleans up; patient completes activity. [place] assists only prior to or following the activity. 4-Supervision or Touching Assistance-helper provides verbal cues and/or touching/steadying and/or contact guard assistance as patient completes activity. Assistance may be provided throughout the activity or intermittently. 3-Partial/Moderate Assistance-helper does LESS THAN HALF the effort. [place] lifts, holds or supports trunk or limbs, but provides less than half the effort. 2-Substantial/Maximal Assistance-helper does MORE THAN HALF the effort. [place] lifts or holds trunk or limbs and provides more than half the effort. 8-Mijiqakkf-qfxkjd does ALL the effort. Patient does none of the effort to complete the activity. Or, the assistance of 2 or more helpers is required for the patient to complete the activity. If activity was not attempted, code reason: 7-Patient Refused. 9-Not Applicable-not attempted and the patient did not perform the activity before the current illness, exacerbation or injury. 10-Not Attempted due to Environmental Limitations-(lack of equipment, weather restraints, etc.). 88-Not Attempted due to Medical Conditions or Safety Concerns. Eating (QC): 6 Oral Hygiene (QC): 6 Shower/Bathe Self (QC): 4 (SBA, VCs for adhering to back precautions with w ashing/drying LEs.) Upper Body Dressing (QC): 3 (Min A with back brace in order to tighten) Lower Body Dressing (QC): 4 (SBA, VCs for AE recall and to adhere to back precautions) On/Off Footwear: 4 (SBA, VCs for back precautions/AE) Toileting Hygiene (QC): 4 (SBA) Toilet Transfer (QC): 4 (SBA) Pt required mod VCs with LB ADLs in order to adhere to back precaution (no bending) and to recall how to use equipment Other Treatment Pt stood from recliner, SBA, then used FWW to transfer into bathroom and onto SC, SBA. Pt doffed clothes, completed shower, then donned clothes as outlined above. Pt required moderate VCs with LB ADLs to adhere to back precautions and use AE appropriately. Pt able to recall 2/3 back precautions during tx, education provided on back precautions throughout. Pt sat at sink to complete grooming tasks, IND, then transferred to BS over toilet to complete toileting, SBA. Pt used FWW to return to recliner, SBA. OT provided education on positioning in recliner in order to decrease low back pain. Post tx, pt in recliner, call light in reach and all needs met. Education OT Patient Education: Correct positioning, Energy conservation, Modified ADL techniques, Progress toward Goal/Update tx plan, Purpose of tx/functional activities, Reviewed precautions, Rehab process, Safety issues, Transfer techniques, Use of adapted equipment Teaching Recipient: Patient Teaching Methods: Discussion Response to Teaching: Verbalize Understanding, Reinforcement Needed OT Intermediate Goals R&D Lab Technician Goals Time Frame: Sep 11, 2023 Acute change in mental status: 1 Inattention: 0 Disorganized thinkin Altered level of consciousness: 0 Eating (QC): 6 Oral Hygiene (QC): 6 Toileting Hygiene (QC): 6 Shower/Bathe Self (QC): 5 Upper Body Dressing (QC): 6 Lower Body Dressing (QC): 6 On/Off Footwear (QC): 6 Additional Goals: 1-Demonstrate ADL Tasks, 2-Verbalize Understanding, 3- ImproveStrength/Romeo 1=Demonstrate adherence to instructed precautions during ADL tasks. 2=Patient will verbalize/demonstrate understanding of assistive devices/modifications for ADL. 3=Patient will improve strength/tolerance for activity to enable patient to perform ADL's. OT Education/Plan Problem List/Assessment Assessment: Decreased Activ Tolerance, Decreased Safety Aware, Decreased UE Strength, Impaired Cognition, Impaired Funct Balance, Impaired I ADL's, Impaired Self-Care Skills Discharge Recommendations Plan/Recommendations: Continue POC Treatment Plan/Plan of Care Patient would benefit from OT for education, treatment and training to promote independence in ADL's, mobility, safety and/or upper extremity function for ADL's. Plan of Care: ADL Retraining, Functional Mobility, Group Exercise/Act as Ind, UE Funct Exercise/Act Comment OT POC updated to 75 mins per day, 5 of 7 days per week. Treatment Duration: Sep 11, 2023 Frequency: At least 5 of 7 days/Wk (IRF) Estimated Hrs Per Day: Other (75 mins per day) Agreement: Yes Rehab Potential: Good Time Start Time: 07:30 Stop Time: 08:45 DATE: Aug 27, 2023 Total Time Billed (hr/min): 75 Billed Treatment Time 1, ADL 5 JOHAN CORDERO OT Aug 27, 2023 09:34
--- NOTE | 2023-08-27 14:07 | Speech Therapy Daily Note ---
Speech Daily Progress Note Subjective Date Seen by Provider: Aug 27, 2023 Time Seen by Provider: 11:35 The pt was alert with good participation in session. Objective The pt had independent recall of acronym (BLT) to list back precautions, with 2/3 recall for the word for which each letter means. With cues, the pt recalled 3rd precaution. The pt was able to identify situations in which precautions could be violated with min assist needed. The pt provided solutions when given hypothetical home situations with min/mod assist needed. The pt was able to provide solution for keeping live truck operator within arm's reach by hanging the live truck operator from his walker. The pt was able to recall need to attach tighteners to brace when undoing brace independently, and was able to provide reasoning behind need to attach ends with good accuracy. Assessment Assessment Current Status: Good Progress The pt is demonstrating improvement in recall of precautions and problem-solving situations for accommodating precaution use in functional situations. Treatment Plan Continue Plan of Care Speech-Plan Treatment Plan Speech Therapy Treatment Plan: Continue Plan of Care Treatment Duration: Aug 21, 2023 Frequency: At least 5 of 7 days/Wk (IRF) Estimated Hrs Per Day: Other (30 minutes) Rehab Potential: Good Barriers to Learning: Cognition, right LE pain Time Speech Therapy Time In: 11:35 Speech Therapy Time Out: 12:05 DATE: Aug 27, 2023 Total Billed Time: 30 Billed Treatment Time 1 SLTS (30 min) KIA SORIA Aug 27, 2023 14:07
--- NOTE | 2023-08-27 14:36 | Occupational Ther Daily Note ---
OT Current Status-Daily Note Subjective Pt alert, working with PT in therapy gym. DOSHI took over care from PT. No c/o pain. Mental Status/Objective Patient Orientation: Person, Place, Time, Situation Attachments: Other-See Comments (TLSO) ADL-Treatment Therapy Code Descriptions/Definitions Functional [place] Measure: 0=Not Assessed/NA 4=Minimal Assistance 1=Total Assistance 5=Supervision or Setup 2=Maximal Assistance 6=Modified [place] 3=Moderate Assistance 7=Complete IndependenceSCALE: Activities may be completed with or without assistive devices. 4-Mvdzrsmjwl-pcithxi completes the activity by him/herself with no assistance from a helper. 5-Set-up or Clean-up Assistance-helper sets up or cleans up; patient completes activity. [place] assists only prior to or following the activity. 4-Supervision or Touching Assistance-helper provides verbal cues and/or touching/steadying and/or contact guard assistance as patient completes activity. Assistance may be provided throughout the activity or intermittently. 3-Partial/Moderate Assistance-helper does LESS THAN HALF the effort. [place] lifts, holds or supports trunk or limbs, but provides less than half the effort. 2-Substantial/Maximal Assistance-helper does MORE THAN HALF the effort. [place] lifts or holds trunk or limbs and provides more than half the effort. 2-Nvddvxgtr-jujxmx does ALL the effort. Patient does none of the effort to complete the activity. Or, the assistance of 2 or more helpers is required for the patient to complete the activity. If activity was not attempted, code reason: 7-Patient Refused. 9-Not Applicable-not attempted and the patient did not perform the activity before the current illness, exacerbation or injury. 10-Not Attempted due to Environmental Limitations-(lack of equipment, weather restraints, etc.). 88-Not Attempted due to Medical Conditions or Safety Concerns. Upper Body Dressing (QC): 5 (Dons/doffs TLSO and upper body clothing by self after set up.) Other Treatment Pt given B UE medium (3 1/2# resistance) theraband HEP for use in room and home. Skilled instruction for correct technique and modifications when needed. 1 set 10 reps for 6 exercises, tolerated well and required verbal cues for correct technique. Completed 3 B UE tasks against gravity to increase B UE strength for daily functional tasks. Pt ambulated around ARU then nrsg wanted to show pt transition rm 226. Pt left in care of nrsg. All needs met. OT Shelter Goals Shelter Goals Time Frame: Sep 11, 2023 Acute change in mental status: 1 Inattention: 0 Disorganized thinkin Altered level of consciousness: 0 Eating (QC): 6 Oral Hygiene (QC): 6 Toileting Hygiene (QC): 6 Shower/Bathe Self (QC): 5 Upper Body Dressing (QC): 6 Lower Body Dressing (QC): 6 On/Off Footwear (QC): 6 Additional Goals: 1-Demonstrate ADL Tasks, 2-Verbalize Understanding, 3- ImproveStrength/Romeo 1=Demonstrate adherence to instructed precautions during ADL tasks. 2=Patient will verbalize/demonstrate understanding of assistive devic es/modifications for ADL. 3=Patient will improve strength/tolerance for activity to enable patient to perform ADL's. OT Education/Plan Problem List/Assessment Assessment: Decreased Activ Tolerance, Decreased Safety Aware, Decreased UE Strength, Impaired Funct Balance, Impaired Self-Care Skills Discharge Recommendations Plan/Recommendations: Continue POC Treatment Plan/Plan of Care Patient would benefit from OT for education, treatment and training to promote independence in ADL's, mobility, safety and/or upper extremity function for ADL's. Plan of Care: ADL Retraining, Functional Mobility, Group Exercise/Act as Ind, UE Funct Exercise/Act Treatment Duration: Sep 11, 2023 Frequency: At least 5 of 7 days/Wk (IRF) Estimated Hrs Per Day: Other (75 mins per day) Agreement: Yes Rehab Potential: Good Time Start Time: 13:35 Stop Time: 14:20 DATE: Aug 27, 2023 Total Time Billed (hr/min): 45 Billed Treatment Time 1 visit-FA (15 min) EX 2 (30 min) ALAN GRIFFIN Aug 27, 2023 14:36
--- NOTE | 2023-08-27 14:54 | Physical Therapy Daily Note ---
PT Daily Note-Current Subjective (R) leg pain less today (2/10) following gait activities. C/o uncomfortable hospital bed. Educated on elevating foot of bed for sleeping to help relieve back pain. Discussed sleep positions and positioning in bed for comfort - recommend elevating foot of bed in supine to decrease pressure on low back - patient verbalized understanding - wrote reminder on patient's white board and notified nursing. Patient will be moving to room 226 in the a.m. Pain Section J - Health Conditions 1. Rarely or not at all 2. Occasionally 3. Frequently 4. Almost constantly 8. Unable to answer Pain Effect on Sleep: 3 Pain Interference with Therapy: 2 Pain Interference w/Day-to-Day: 3 Transfers SCALE: Activities may be completed with or without assistive devices. 7-Algwjbvcab-kiglzmt completes the activity by him/herself with no assistance from a helper. 5-Set-up or Clean-up Assistance-helper sets up or cleans up; patient completes activity. [place] assists only prior to or following the activity. 4-Supervision or Touching Assistance-helper provides verbal cues and/or touching/steadying and/or contact guard assistance as patient completes activity. Assistance may be provided throughout the activity or intermittently. 3-Partial/Moderate Assistance-helper does LESS THAN HALF the effort. [place] lifts, holds or supports trunk or limbs, but provides less than half the effort. 2-Substantial/Maximal Assistance-helper does MORE THAN HALF the effort. [place] lifts or holds trunk or limbs and provides more than half the effort. 6-Jsuyqiqmr-otcywi does ALL the effort. Patient does none of the effort to complete the activity. Or, the assistance of 2 or more helpers is required for the patient to complete the activity. If activity was not attempted, code reason: 7-Patient Refused. 9-Not Applicable-not attempted and the patient did not perform the activity before the current illness, exacerbation or injury. 10-Not Attempted due to Environmental Limitations-(lack of equipment, weather restraints, etc.). 88-Not Attempted due to Medical Conditions or Safety Concerns. Sit to Stand (QC): 4 (CGA) Chair/Hwj-bp-Auogr Xfer(QC): 4 (CGA-SBA /c FWW) Weight Bearing Right Lower Extremity: Right Weight Bearing/Tolerated Left Lower Extremity: Left Weight Bearing/Tolerated Gait Training Distance: 157', 92' Walk 10 feet (QC): 4 (SBA-CGA /c FWW) Walk 50 ft with 2 Turns(QC): 4 (SBA-CGA /c FWW) Walk 150 ft (QC): 4 (SBA-CGA /c FWW) Gait Persons Needed: 1 Gait Assistive Device: FWW Improved stride length and henrry today. Improved gait distance with less fatigue. Stair Training #of Steps: 5 4 Steps (QC): 3 (/c (B) rails and max v.c. for correct sequencing (up with left, down with right)) Exercises No pain increase with Nustep activity. Did need cues to fully extend legs as much as possible while on Nustep to stretch hamstrings. LE sitting HEP created for patient with copy given to patient, 1 placed in chart, and 1 in patient's r oom - reviewed verbally with patient - will re-educate next session to ensure correct completion. NuStep Minutes: 15 NuStep Workload: 3 Treatments Readjusted TLSO for patient as it is not fitting patient well - fell off patient when he karen from sitting to standing(TLSO had not been loosened in sitting). Patient demonstrated good static standing balance with FWW while TLSO was reapplied and adjusted. Assessment Current Status: Good Progress PT Short Term Goals Short Term Goals Time Frame: Aug 28, 2023 Roll Left & Right: 5 Sit to lyin Lying to sitting on side of be: 5 Sit to stand: 5 Chair/uzt-pc-kotrx transfer: 5 Toilet transfer: 5 Car transfer: 5 Walk 10 feet: 5 Walk 50 feet with two turns: 5 Walk 150 feet: 5 Walking 10ft on uneven surface: 5 1 step (curb): 5 4 steps: 5 12 steps: 5 Picking up objects: 5 Does pt use a wc or scooter: No Wheel 50ft w/2 turns: 9 Wheel 150 feet: 9 Type: N/A PT Long-Term Goals Counter Sales Person Goals PT Counter Sales Person Goals Time Frame: Sep 04, 2023 Roll Left & Right (QC): 6 Sit to Lying (QC): 6 Lying-Sitting on Side/Bed(QC): 6 Sit to Stand (QC): 6 Chair/Nqg-qb-Eaeph Xfer(QC): 6 Toilet Transfer (QC): 6 Car Transfer (QC): 6 Does the Patient Walk: Yes Walk 10 feet (QC): 6 Walk 50ft with 2 Turns (QC): 6 Walk 150 ft (QC): 6 Walking 10ft on Uneven Surface: 6 1 Step (curb) (QC): 6 4 Steps (QC): 6 12 Steps (QC): 6 Picking up an Object (QC): 6 Does the Pt use WC or Scooter?: No Wheel 50 feet with 2 turns (QC: 9 Type: N/A Wheel 150 feet: 9 Type: N/A PT Plan Treatment/Plan Treatment Plan: Continue Plan of Care Treatment Plan: Bed Mobility, Education, Functional Activity Romeo, Functional Strength, Group Therapy, Gait, Safety, Therapeutic Exercise, Transfers Treatment Duration: Aug 21, 2023 Frequency: At least 5 of 7 days/Wk (IRF) Estimated Hrs Per Day: 1.5 hours per day Patient and/or Family Agrees t: Yes Time Time In: 1255 Time Out: 1335 DATE: Aug 27, 2023 Total Billed Treatment Time: 40 Total Billed Treatment Gt 15, FA 10, EX 15 Katie Blank PT Aug 27, 2023 14:54
[2023-08-27] MEDS: ONDANSETRON 4 MG ORAL DISSOLVE TABLET PO PRN (17:55)
[2023-08-27 19:07] VITALS: BP 153/77
[2023-08-27] MEDS: ALPRAZolam 0.25 MG TABLET PO PRN (21:04)
[2023-08-27] MEDS: PANTOPRAZOLE 20 MG TABLET PO SCH (21:04)
[2023-08-28] MEDS: oxyCODONE IMMEDIATE RELEASE 5 MG TABLET PO PRN (02:59)
--- NOTE | 2023-08-28 05:31 | PM&R Progress Note ---
Subjective HPI/CC On Admission Date Seen by Provider: Aug 28, 2023 Time Seen by Provider: 11:30 Subjective/Events-last exam 08/28/2023: Patient doing well Moved to independent room 226 No major concerns Pain is controlled and getting better 08/27/2023: Doing better Less pain Didn't sleep as well as night before No falls BM+ 08/26/2023: Doing better Bone biopsy no evidence of cancer Reviewed meds and labs 08/25/2023: Patient doing pretty well Making some progress Pain is still present in the right leg Awaiting bone biopsy results 08/24/2023: About the same except drowsy from Oxycodone No BM yet so will initiate supp and more laxatives Reviewed meds 08/23/2023: Patient doing much better Oxycodone had help with the pain last night and he did sleep Talking more about his right leg and right leg pain 08/22/2023: Patient had a lot more pain Did not get to sleep very much Labs are stable Bowels have not moved so we will initiate meds for that Added oxycodone and increased dose of hydrocodone Review of Systems General: Fatigue, Malaise Objective Exam Vital Signs Vital Signs Date Time Temp Pulse Resp B/P (MAP) Pulse Ox O2 Delivery O2 Flow Rate FiO2 08/28/23 08:10 Room Air 08/28/23 08:00 36.6 75 17 137/75 (95) 96 Capillary Refill : General Appearance: No Apparent Distress, WD/WN, Chronically ill HEENT: PERRL/EOMI, Normal ENT Inspection, Pharynx Normal Neck: Full Range of Motion, Normal Inspection, Non Tender, Supple, Carotid Bruit Respiratory: Chest Non Tender, Lungs Clear, Normal Breath Sounds, No Accessory Muscle Use, No Respiratory Distress Cardiovascular: Regular Rate, Rhythm, No Edema, No Gallop, No JVD, No Murmur, Normal Peripheral Pulses Gastrointestinal: Normal Bowel Sounds, No Organomegaly, No Pulsatile Mass, Non Tender, Soft Back: Normal Inspection, No CVA Tenderness, No Vertebral Tenderness Extremity: Normal Capillary Refill, Normal Inspection, Normal Range of Motion, Non Tender, No Calf Tenderness, No Pedal Edema Neurologic/Psychiatric: Alert, Oriented x3, metal fitters and machinists II-XII Norm as Tested, Abnormal Gait, Depressed Affect, Motor Weakness (right leg 3/5) Skin: Normal Color, Warm/Dry Lymphatic: No Adenopathy Results/Procedures Lab Patient resulted labs reviewed. FIM Transfers Therapy Code Descriptions/Definitions Functional [place] Measure: 0=Not Assessed/NA 4=Minimal Assistance 1=Total Assistance 5=Supervision or Setup 2=Maximal Assistance 6=Modified [place] 3=Moderate Assistance 7=Complete IndependenceSCALE: Activities may be completed with or without assistive devices. 7-Ndpfqxcotp-wbhfvcr completes the activity by him/herself with no assistance from a helper. 5-Set-up or Clean-up Assistance-helper sets up or cleans up; patient completes activity. [place] assists only prior to or following the activity. 4-Supervision or Touching Assistance-helper provides verbal cues and/or touching /steadying and/or contact guard assistance as patient completes activity. Assistance may be provided throughout the activity or intermittently. 3-Partial/Moderate Assistance-helper does LESS THAN HALF the effort. [place] lifts, holds or supports trunk or limbs, but provides less than half the effort. 2-Substantial/Maximal Assistance-helper does MORE THAN HALF the effort. [place] lifts or holds trunk or limbs and provides more than half the effort. 1-Lrnxrdbrx-ddawrm does ALL the effort. Patient does none of the effort to complete the activity. Or, the assistance of 2 or more helpers is required for the patient to complete the activity. If activity was not attempted, code reason: 7-Patient Refused. 9-Not Applicable-not attempted and the patient did not perform the activity before the current illness, exacerbation or injury. 10-Not Attempted due to Environmental Limitations-(lack of equipment, weather restraints, etc.). 88-Not Attempted due to Medical Conditions or Safety Concerns. Roll Left to Right (QC): 3 (min-mod(A) with v.c. and instruction for log rolling) Sit to Lying (QC): 3 (Pt requires ModA with use of leg carbon cleaner.) Sit to Stand (QC): 4 (CGA) Chair/Kbt-gr-Ezyff Xfer(QC): 4 (CGA-SBA /c FWW) Car Transfer (QC): 3 Gait Training Does the Patient Walk?: Yes Distance: 157', 92' Walk 10 feet (QC): 4 (SBA-CGA /c FWW) Walk 50 ft with 2 Turns(QC): 4 (SBA-CGA /c FWW) Walk 150 ft (QC): 4 (SBA-CGA /c FWW) Walking 10ft/uneven surface-QC: 3 Gait Persons Needed: 1 Gait Assistive Device: FWW Wheelchair Training Does the Pt Use a Wheelchair?: No Wheel 50 ft with 2 turns (QC): 9 Wheel 150 ft (QC): 9 Type of Wheelchair: N/A Stair Training #of Steps: 5 1 Step (curb) (QC): 3 4 Steps (QC): 3 (/c (B) rails and max v.c. for correct sequencing (up with left, down with right)) 12 Steps (QC): 3 Balance Picking up an Object (QC): 88 ADL-Treatment Eating (QC): 6 Oral Hygiene (QC): 6 Shower/Bathe Self (QC): 4 (SBA, VCs for adhering to back precautions with washing/drying LEs.) Upper Body Dressing (QC): 5 (Dons/doffs TLSO and upper body clothing by self after set up.) Lower Body Dressing (QC): 4 (SBA, VCs for AE recall and to adhere to back precautions) On/Off Footwear (QC): 4 (SBA, VCs for back precautions/AE) Toileting Hygiene (QC): 4 (SBA) Toilet Transfer (QC): 4 (SBA) Assessment/Plan Assessment and Plan Assess & Plan/Chief Complaint Assessment: Lumbar stenosis s/p surgery with slow recovery Right leg residual weakness from radiculopathy Prostate cancer hx L5 compression fracture s/p bone biopsy HTN EMILE on CPAP Advanced age Plan: BM regimen PT OT Home meds CPAP 08/22/2023: Bowel regimen Increased pain meds 08/23/2023: Pain control Aggressive rehab 08/24/2023: Monitor closely Pain control 08/25/2023: Continue aggressive rehab 08/26/2023: Reassure Increase therapy 08/27/2023: Monitor closely 08/28/2023: Supportive care Monitor closely (1) Lumbar spinal stenosis ROSAURA HOPPER DO Aug 28, 2023 05:31
[2023-08-28] MEDS: DICLOFENAC 1% GEL 50 GM TUBE TOP SCH ×4 (05:48→21:36)
[2023-08-28] MEDS: HYDROcodone/ACETAMINOPHEN 10/325 TABLET PO PRN ×3 (05:48→21:35)
[2023-08-28] MEDS: ENALAPRIL 10 MG TABLET PO SCH ×2 (07:49→21:33)
[2023-08-28] MEDS: SENNA W/DOCUSATE TABLET PO SCH ×2 (07:49→21:00)
[2023-08-28] MEDS: TAMSULOSIN 0.4 MG (FLOMAX) CAP PO SCH (07:49)
[2023-08-28] MEDS: OMEGA 3 (FISH OIL) 1000 MG CAP PO SCH ×2 (07:49→21:33)
[2023-08-28] MEDS: ACETAMINOPHEN 500 MG TABLET PO SCH ×2 (07:49→21:34)
[2023-08-28] MEDS: LORATADINE 10 MG TABLET PO SCH (07:49)
[2023-08-28] MEDS: FAMOTIDINE 20 MG TABLET PO SCH (07:49)
[2023-08-28] MEDS: BRIMONIDINE 0.2% OPHTH SOLN 5 ML BTL OP SCH ×2 (07:51→21:36)
[2023-08-28 08:00] VITALS: BP 137/75
[2023-08-28] MEDS: DOCUSATE SODIUM 100 MG CAPSULE PO SCH ×2 (08:40→21:34)
--- NOTE | 2023-08-28 08:57 | Progress Note ---
IGNACIO GARVEY 08/28/23 0857: Progress Note 78 year old male, here for recovery from lumbar surgery with residual right leg weakness from radiculopathy. He has a history of prostate cancer, HTN, and EMILE on CPAP. On admission, patient has been limited due to the surgery and right leg radiculopathy. He is currently able to perform ADLs with supervised assistance, with the goal of treatment to have him be completely independent as he lives alone. He is having difficulty with pain in his right leg, which is controlled with oxycodone and tylenol. Patient still reports a 4/10 pain, worse in the morning. He is doing well with PT/OT. He is having regular bowel movements. Pain in right greater trochanter is under better control with diclofenac 1% gel PRN. Patient reports his radiculopathy is less painful today. JEN HOPPER DO 08/28/232054: Supervisory-Addendum Brief Verification & Attestation Participated in pt care: history, MDM, physical Personally performed: exam, history, MDM, supervision of care Care discussed with: Medical Student Procedures: n/a Results interpretation: Verified all documentation Verification and Attestation of Medical Student E/M Service A medical student performed and documented this service in my presence. I reviewed and verified all information documented by the medical student and made modifications to such information, when appropriate. I personally performed the physical exam and medical decision making. Jen Hopper, Aug 28, 2023,20:55 IGNACIO GARVEY Aug 28, 2023 08:57 JEN HOPPER DO Aug 28, 2023 20:55
--- NOTE | 2023-08-28 09:18 | Occupational Ther Daily Note ---
OT Current Status-Daily Note Subjective Pt up in recliner, agreeable to OT Tx. Pt states pain in RLE, but doesn't verbalize pain rating. Mental Status/Objective Patient Orientation: Normal For Age Attachments: Other-See Comments (back brace) ADL-Treatment Therapy Code Descriptions/Definitions Functional [place] Measure: 0=Not Assessed/NA 4=Minimal Assistance 1=Total Assistance 5=Supervision or Setup 2=Maximal Assistance 6=Modified [place] 3=Moderate Assistance 7=Complete IndependenceSCALE: Activities may be completed with or without assistive devices. 8-Mxhpucrvpd-pddknss completes the activity by him/herself with no assistance from a helper. 5-Set-up or Clean-up Assistance-helper sets up or cleans up; patient completes activity. [place] assists only prior to or following the activity. 4-Supervision or Touching Assistance-helper provides verbal cues and/or touching/steadying and/or contact guard assistance as patient completes activity. Assistance may be provided throughout the activity or intermittently. 3-Partial/Moderate Assistance-helper does LESS THAN HALF the effort. [place] lifts, holds or supports trunk or limbs, but provides less than half the effort. 2-Substantial/Maximal Assistance-helper does MORE THAN HALF the effort. [place] lifts or holds trunk or limbs and provides more than half the effort. 5-Xgklxhjwq-favsvi does ALL the effort. Patient does none of the effort to complete the activity. Or, the assistance of 2 or more helpers is required for the patient to complete the activity. If activity was not attempted, code reason: 7-Patient Refused. 9-Not Applicable-not attempted and the patient did not perform the activity before the current illness, exacerbation or injury. 10-Not Attempted due to Environmental Limitations-(lack of equipment, weather restraints, etc.). 88-Not Attempted due to Medical Conditions or Safety Concerns. Eating (QC): 6 Oral Hygiene (QC): 6 Toileting Hygiene (QC): 6 Toilet Transfer (QC): 6 Other Treatment Pt finished with breakfast upon OT arrival, requests to use bathroom. Pt used FWW to transfer into bathroom, SBA, then transferred onto [facility] over toilet, IND. Pt completed toileting, IND, then sat at sink to complete grooming tasks, IND. Pt agreeable to transfer to room 226 (more of an apartment style room with regular bed/mattress). Pt assisted with gathering items around him and placing on cart for transport. Pt able to verbally recall that he would need to use a elementary principal in order to pick remover objects off of the floor. Pt used FWW to perform functional mobility from room 223 to room 226, SBA-CGA. Pt transferred to recliner. OT set up pt's bathroom in new room with BSC over toilet and tub transfer bench in tub/shower. Pt then completed tub transfer using FWW with SBA, VCs for sequencing. Pt performed functional mobility using FWW around ARU common are, 1 seated rest break, then returned to his room, SBA with VCS for UE placement and body positioning with wallker. Post tx, pt in recliner, call light in reach and all needs met. Pt instructed to continue using call light and not get up in room without staff present, he verbalized understanding Education OT Patient Education: Correct positioning, Energy conservation, Modified ADL techniques, Progress toward Goal/Update tx plan, Purpose of tx/functional activities, Reviewed precautions, Rehab process, Safety issues, Transfer techniques, Use of adapted equipment Teaching Recipient: Patient Teaching Methods: Discussion Response to Teaching: Verbalize Understanding, Reinforcement Needed OT School Bus Technician Goals School Bus Technician Goals Time Frame: Sep 11, 2023 Acute change in mental status: 1 Inattention: 0 Disorganized thinkin Altered level of consciousness: 0 Eating (QC): 6 Oral Hygiene (QC): 6 Toileting Hygiene (QC): 6 Shower/Bathe Self (QC): 5 Upper Body Dressing (QC): 6 Lower Body Dressing (QC): 6 On/Off Footwear (QC): 6 Additional Goals: 1-Demonstrate ADL Tasks, 2-Verbalize Understanding, 3- ImproveStrength/Romeo 1=Demonstrate adherence to instructed precautions during ADL tasks. 2=Patient will verbalize/demonstrate understanding of assistive devices/modifications for ADL. 3=Patient will improve strength/tolerance for activity to enable patient to perform ADL's. OT Education/Plan Problem List/Assessment Assessment: Decreased Activ Tolerance, Decreased UE Strength, Impaired Funct Balance, Impaired I ADL's, Impaired Self-Care Skills Discharge Recommendations Plan/Recommendations: Continue POC Treatment Plan/Plan of Care Patient would benefit from OT for education, treatment and training to promote independence in ADL's, mobility, safety and/or upper extremity function for ADL's. Plan of Care: ADL Retraining, Functional Mobility, Group Exercise/Act as Ind, UE Funct Exercise/Act Treatment Duration: Sep 11, 2023 Frequency: At least 5 of 7 days/Wk (IRF) Estimated Hrs Per Day: Other (75 mins per day) Agreement: Yes Rehab Potential: Good Time Start Time: 07:45 Stop Time: 09:00 DATE: Aug 28, 2023 Total Time Billed (hr/min): 75 Billed Treatment Time 1, ADL 3 (45'), FA 2 (30') JOHAN CORDERO OT Aug 28, 2023 09:18
--- NOTE | 2023-08-28 11:33 | Speech Therapy Daily Note ---
Speech Daily Progress Note Subjective Date Seen by Provider: Aug 28, 2023 Time Seen by Provider: 10:40 The pt was awake and interactive, with good participation in therapy. Objective The pt was able to list back precautions at 3/3 accuracy uncued. When asked to explain to WELDER SETTER RESISTANCE MACHINE what each precaution meant, he was able to explain 2/3 and relate the precautions to movement in tasks. He required extra discussion and cues to e xplain "bending" as related to activities done form standing vs. sitting position. Given a hypothetical situation, the pt was able to identify back precaution needed with 100% accuracy. He generated solution to the situation with good accuracy, with min verbal prompts needed. The pt was able to generate items needed given specific home ADL's, and apply problem solving for adhering to back precautions for gathering and using items. Assessment Assessment Current Status: Good Progress The pt is demonstrating improved retention and reasoning as relates to safety during ADL tasks. Speech-Plan Treatment Plan Speech Therapy Treatment Plan: Continue Plan of Care Treatment Duration: Aug 21, 2023 Frequency: At least 5 of 7 days/Wk (IRF) Estimated Hrs Per Day: Other (30 minutes) Rehab Potential: Good Safety Risks/Education Teaching Recipient: Patient Teaching Methods: Discussion Response to Teaching: Verbalize Understanding Education Topics Provided: Back precautions, problem solving Discharge Recommendations Intermittent Supervision Time Speech Therapy Time In: 10:40 Speech Therapy Time Out: 11:20 DATE: Aug 28, 2023 Total Billed Time: 40 Billed Treatment Time 1 SLTS (40 min) KIA SORIA Aug 28, 2023 11:33
--- NOTE | 2023-08-28 13:39 | Occupational Ther Daily Note ---
OT Current Status-Daily Note Subjective [place] with PT for family education. ADL-Treatment Therapy Code Descriptions/Definitions Functional [place] Measure: 0=Not Assessed/NA 4=Minimal Assistance 1=Total Assistance 5=Supervision or Setup 2=Maximal Assistance 6=Modified [place] 3=Moderate Assistance 7=Complete IndependenceSCALE: Activities may be completed with or without assistive devices. 9-Kqvdwkyfkl-iqdxain completes the activity by him/herself with no assistance from a helper. 5-Set-up or Clean-up Assistance-helper sets up or cleans up; patient completes activity. [place] assists only prior to or following the activity. 4-Supervision or Touching Assistance-helper provides verbal cues and/or touching/steadying and/or contact guard assistance as patient completes activity. Assistance may be provided throughout the activity or intermittently. 3-Partial/Moderate Assistance-helper does LESS THAN HALF the effort. [place] lifts, holds or supports trunk or limbs, but provides less than half the effort. 2-Substantial/Maximal Assistance-helper does MORE THAN HALF the effort. [place] lifts or holds trunk or limbs and provides more than half the effort. 9-Vgygxwqes-iaxyia does ALL the effort. Patient does none of the effort to com plete the activity. Or, the assistance of 2 or more helpers is required for the patient to complete the activity. If activity was not attempted, code reason: 7-Patient Refused. 9-Not Applicable-not attempted and the patient did not perform the activity before the current illness, exacerbation or injury. 10-Not Attempted due to Environmental Limitations-(lack of equipment, weather restraints, etc.). 88-Not Attempted due to Medical Conditions or Safety Concerns. Other Treatment [place] with PT for family education and due to skill of 2 clinicians required which a music rehabilitation therapist could not perform in order to coordinate UE/LEs, decrease fall risk, and due ot pt's limitations in strength, activity tolerance, mobility/transfers. OT focused on UE placement, cues for sequencing and safety and ADLs, PT focused on LE placement, gross overall movement, transfers and mob ility. Pt's daughters present, education provided on pt's back precautions, AE used for LE ADLs, and cues required during ADLs, they verbalized understanding. OT recommends supervision at this time during shower and dressing due to VCS required to maintain back precautions. Bed cane placed on pt's bed, pt then used FWW to transfer to EOB, then completed supine to/from sit transfer. Family also educated on tub transfer bench vs SC, with recommendations for pt to use walk in shower with SC at discharge. Pt's daughters report no further questions/concerns at this time. Post tx, pt with PT, all needs met. Education OT Patient Education: Correct positioning, Energy conservation, Modified ADL techniques, Progress toward Goal/Update tx plan, Purpose of tx/functional activities, Reviewed precautions, Rehab process, Safety issues, Transfer techniques, Use of adapted equipment Teaching Recipient: Family Teaching Methods: Discussion Response to Teaching: Verbalize Understanding OT Practice Architect Goals Practice Architect Goals Time Frame: Sep 11, 2023 Acute change in mental status: 1 Inattention: 0 Disorganized thinkin Altered level of consciousness: 0 Eating (QC): 6 Oral Hygiene (QC): 6 Toileting Hygiene (QC): 6 Shower/Bathe Self (QC): 5 Upper Body Dressing (QC): 6 Lower Body Dressing (QC): 6 On/Off Footwear (QC): 6 Additional Goals: 1-Demonstrate ADL Tasks, 2-Verbalize Understanding, 3- ImproveStrength/Romeo 1=Demonstrate adherence to instructed precautions during ADL tasks. 2=Patient will verbalize/demonstrate understanding of assistive devices/modifications for ADL. 3=Patient will improve strength/tolerance for activity to enable patient to perform ADL's. OT Education/Plan Problem List/Assessment Assessment: Decreased Activ Tolerance, Decreased UE Strength, Impaired Funct Balance, Impaired I ADL's, Impaired Self-Care Skills Discharge Recommendations Plan/Recommendations: Continue POC Treatment Plan/Plan of Care Patient would benefit from OT for education, treatment and training to promote independence in ADL's, mobility, safety and/or upper extremity function for ADL's. Plan of Care: ADL Retraining, Functional Mobility, Group Exercise/Act as Ind, UE Funct Exercise/Act Treatment Duration: Sep 11, 2023 Frequency: At least 5 of 7 days/Wk (IRF) Estimated Hrs Per Day: Other (75 mins per day) Agreement: Yes Rehab Potential: Good Time Start Time: 13:00 Stop Time: 13:30 DATE: Aug 28, 2023 Total Time Billed (hr/min): 30 Billed Treatment Time [place] x30' 1, ADL 2 JOHAN CORDREO OT Aug 28, 2023 13:38
--- NOTE | 2023-08-28 15:35 | Physical Therapy Daily Note ---
PT Daily Note-Current Subjective Pt presents in recliner with B feet on floor. Pt's family is present for Family Training. Pt agreed to tx. Co Tx for 30m /c OT. Pain Section J - Health Conditions 1. Rarely or not at all 2. Occasionally 3. Frequently 4. Almost constantly 8. Unable to answer Pain Effect on Sleep: 3 Pain Interference with Therapy: 2 Pain Interference w/Day-to-Day: 3 Transfers SCALE: Activities may be completed with or without assistive devices. 2-[place]-voqjslt completes the activity by him/herself with no assistance from a helper. 5-Set-up or Clean-up Assistance-helper sets up or cleans up; patient completes activity. [place] assists only prior to or following the activity. 4-Supervision or Touching Assistance-helper provides verbal cues and/or touching/steadying and/or contact guard assistance as patient completes activity. Assistance may be provided throughout the activity or intermittently. 3-Partial/Moderate Assistance-helper does LESS THAN HALF the effort. [place] lifts, holds or supports trunk or limbs, but provides less than half the effort. 2-Substantial/Maximal Assistance-helper does MORE THAN HALF the effort. [place] lifts or holds trunk or limbs and provides more than half the effort. 0-Wchhxrrmz-ithbfw does ALL the effort. Patient does none of the effort to complete the activity. Or, the assistance of 2 or more helpers is required for the patient to complete the activity. If activity was not attempted, code reason: 7-Patient Refused. 9-Not Applicable-not attempted and the patient did not perform the activity before the current illness, exacerbation or injury. 10-Not Attempted due to Environmental Limitations-(lack of equipment, weather restraints, etc.). 88-Not Attempted due to Medical Conditions or Safety Concerns. Sit to Lying (QC): 4 (Pt uses bed cane) Lying to Sitting/Side of Bed(Q: 4 (Pt uses bed cane) Sit to Stand (QC): 4 Chair/Kmj-xd-Iaquj Xfer(QC): 4 Toilet Transfer (QC): 4 Weight Bearing Right Lower Extremity: Right Weight Bearing/Tolerated Left Lower Extremity: Left Weight Bearing/Tolerated Gait Training Does the Patient Walk?: Yes Walk 10 feet (QC): 4 Walk 50 ft with 2 Turns(QC): 4 Walk 150 ft (QC): 4 Gait Assistive Device: FWW Pt amb 160' x 2 /c FWW, CGA for safety and vc/tc's, from room<>PT gym. Exercises NuStep Minutes: 10 NuStep Workload: 3 Treatments OT/PHOTOGRAPHIC EQUIPMENT TECHNICIAN conducted Family Training with pt two daughters. Pt was introduced to bed cane by OT, and pt practiced using bed cane multiple times. Pt utilized restroom /c CGA for safety and hand placement. Pt amb from room<>PT gym to bike on NuStep. Pt tx ended in recliner in room, with call light on table next to him, all needs met, and both daughters in room with pt. Assessment Current Status: Fair Progress Pt was mindful of proper use of walker. Pt attempted to [place] xfers, not using proper hand placement (for both sitting and standing). PT Short Term Goals Short Term Goals Time Frame: Aug 28, 2023 Roll Left & Right: 5 Sit to lyin Lying to sitting on side of be: 5 Sit to stand: 5 Chair/ekb-po-ofdly transfer: 5 Toilet transfer: 5 Car transfer: 5 Walk 10 feet: 5 Walk 50 feet with two turns: 5 Walk 150 feet: 5 Walking 10ft on uneven surface: 5 1 step (curb): 5 4 steps: 5 12 steps: 5 Picking up objects: 5 Does pt use a wc or scooter: No Wheel 50ft w/2 turns: 9 Wheel 150 feet: 9 Type: N/A PT Mcfp Goals Fishing Tool Supervisor Goals PT Mcfp Goals Time Frame: Sep 04, 2023 Roll Left & Right (QC): 6 Sit to Lying (QC): 6 Lying-Sitting on Side/Bed(QC): 6 Sit to Stand (QC): 6 Chair/Yrh-ml-Kegzk Xfer(QC): 6 Toilet Transfer (QC): 6 Car Transfer (QC): 6 Does the Patient Walk: Yes Walk 10 feet (QC): 6 Walk 50ft with 2 Turns (QC): 6 Walk 150 ft (QC): 6 Walking 10ft on Uneven Surface: 6 1 Step (curb) (QC): 6 4 Steps (QC): 6 12 Steps (QC): 6 Picking up an Object (QC): 6 Does the Pt use WC or Scooter?: No Wheel 50 feet with 2 turns (QC: 9 Type: N/A Wheel 150 feet: 9 Type: N/A PT Plan Problem List Problem List: Safety Treatment/Plan Treatment Plan: Continue Plan of Care Treatment Plan: Bed Mobility, Education, Functional Activity Romeo, Functional Strength, Group Therapy, Gait, Safety, Therapeutic Exercise, Transfers Treatment Duration: Aug 21, 2023 Frequency: At least 5 of 7 days/Wk (IRF) Estimated Hrs Per Day: 1.5 hours per day Patient and/or Family Agrees t: Yes Safety Risks/Education Patient Education: Reviewed Precautions, Safety Issues Teaching Recipient: Patient, Family Teaching Methods: Demonstration, Discussion Response to Teaching: Verbalize Understanding, Reinforcement Needed Discharge Recommendations Plan Continue with tx per pt POC. Time Time In: 1300 Time Out: 1415 DATE: Aug 28, 2023 Total Billed Treatment Time: 75 Total Billed Treatment 1, FA4 (60m), FA (15m) MARTA PA PHOTOGRAPHIC EQUIPMENT TECHNICIAN Aug 28, 2023 15:35
[2023-08-28] MEDS: ONDANSETRON 4 MG ORAL DISSOLVE TABLET PO PRN (19:50)
[2023-08-28 20:48] VITALS: BP 112/65
[2023-08-28] MEDS: ALPRAZolam 0.25 MG TABLET PO PRN (21:34)
[2023-08-28] MEDS: PANTOPRAZOLE 20 MG TABLET PO SCH (21:34)
[2023-08-28] MEDS: MELATONIN 3 MG TABLET PO PRN (21:34)
[2023-08-29] MEDS: oxyCODONE IMMEDIATE RELEASE 5 MG TABLET PO PRN ×2 (02:54→21:40)
--- NOTE | 2023-08-29 05:37 | PM&R Progress Note ---
Subjective HPI/CC On Admission Date Seen by Provider: Aug 29, 2023 Time Seen by Provider: 08:30 Subjective/Events-last exam 08/29/2023: Patient doing well Less pain Moving around really well 08/28/2023: Patient doing well Moved to independent room 226 No major concerns Pain is controlled and getting better 08/27/2023: Doing better Less pain Didn't sleep as well as night before No falls BM+ 08/26/2023: Doing better Bone biopsy no evidence of cancer Reviewed meds and labs 08/25/2023: Patient doing pretty well Making some progress Pain is still present in the right leg Awaiting bone biopsy results 08/24/2023: About the same except drowsy from Oxycodone No BM yet so will initiate supp and more laxatives Reviewed meds 08/23/2023: Patient doing much better Oxycodone had help with the pain last night and he did sleep Talking more about his right leg and right leg pain 08/22/2023: Patient had a lot more pain Did not get to sleep very much Labs are stable Bowels have not moved so we will initiate meds for that Added oxycodone and increased dose of hydrocodone Review of Systems General: Fatigue, Malaise Objective Exam Vital Signs Vital Signs Date Time Temp Pulse Resp B/P (MAP) Pulse Ox O2 Delivery O2 Flow Rate FiO2 08/29/23 10:04 Room Air 08/29/23 08:00 36.2 83 17 124/58 (80) 97 Capillary Refill : General Appearance: No Apparent Distress, WD/WN, Chronically ill HEENT: PERRL/EOMI, Normal ENT Inspection, Pharynx Normal Neck: Full Range of Motion, Normal Inspection, Non Tender, Supple, Carotid Bruit Respiratory: Chest Non Tender, Lungs Clear, Normal Breath Sounds, No Accessory Muscle Use, No Respiratory Distress Cardiovascular: Regular Rate, Rhythm, No Edema, No Gallop, No JVD, No Murmur, Normal Peripheral Pulses Gastrointestinal: Normal Bowel Sounds, No Organomegaly, No Pulsatile Mass, Non Tender, Soft Back: Normal Inspection, No CVA Tenderness, No Vertebral Tenderness Extremity: Normal Capillary Refill, Normal Inspection, Normal Range of Motion, Non Tender, No Calf Tenderness, No Pedal Edema Neurologic/Psychiatric: Alert, Oriented x3, manager personnel selection II-XII Norm as Tested, Abnormal Gait, Depressed Affect, Motor Weakness (right leg 3/5) Skin: Normal Color, Warm/Dry Lymphatic: No Adenopathy Results/Procedures Lab Patient resulted labs reviewed. FIM Transfers Therapy Code Descriptions/Definitions Functional [place] Measure: 0=Not Assessed/NA 4=Minimal Assistance 1=Total Assistance 5=Supervision or Setup 2=Maximal Assistance 6=Modified [place] 3=Moderate Assistance 7=Complete IndependenceSCALE: Activities may be completed with or without assistive devices. 0-Nrpbcxoxbg-fgyzfib completes the activity by him/herself with no assistance from a helper. 5-Set-up or Clean-up Assistance-helper sets up or cleans up; patient completes activity. [place] assists only prior to or following the activity. 4-Supervision or Touching Assistance-helper provides verbal cues and/or touching/steadying and/or contact guard assistance as patient completes activity. Assistance may be provided throughout the activity or intermittently. 3-Partial/Moderate Assistance-helper does LESS THAN HALF the effort. [place] lifts, holds or supports trunk or limbs, but provides less than half the effort. 2-Substantial/Maximal Assistance-helper does MORE THAN HALF the effort. [place] lifts or holds trunk or limbs and provides more than half the effort. 3-Lpsxwwguc-cbpojr does ALL the effort. Patient does none of the effort to complete the activity. Or, the assistance of 2 or more helpers is required for the patient to complete the activity. If activity was not attempted, code reason: 7-Patient Refused. 9-Not Applicable-not attempted and the patient did not perform the activity before the current illness, exacerbation or injury. 10-Not Attempted due to Environmental Limitations-(lack of equipment, weather restraints, etc.). 88-Not Attempted due to Medical Conditions or Safety Concerns. Roll Left to Right (QC): 3 (min-mod(A) with v.c. and instruction for log rolling) Sit to Lying (QC): 4 (Pt uses bed cane) Sit to Stand (QC): 4 Chair/Evx-ie-Bctrz Xfer(QC): 4 Car Transfer (QC): 3 Gait Training Does the Patient Walk?: Yes Distance: 157', 92' Walk 10 feet (QC): 4 Walk 50 ft with 2 Turns(QC): 4 Walk 150 ft (QC): 4 Walking 10ft/uneven surface-QC: 3 Gait Persons Needed: 1 Gait Assistive Device: FWW Wheelchair Training Does the Pt Use a Wheelchair?: No Wheel 50 ft with 2 turns (QC): 9 Wheel 150 ft (QC): 9 Type of Wheelchair: N/A Stair Training #of Steps: 5 1 Step (curb) (QC): 3 4 Steps (QC): 3 (/c (B) rails and max v.c. for correct sequencing (up with left, down with right)) 12 Steps (QC): 3 Balance Picking up an Object (QC): 88 ADL-Treatment Eating (QC): 6 Oral Hygiene (QC): 6 Shower/Bathe Self (QC): 4 (SBA, VCs for adhering to back precautions with w ashing/drying LEs.) Upper Body Dressing (QC): 5 (Dons/doffs TLSO and upper body clothing by self after set up.) Lower Body Dressing (QC): 4 (SBA, VCs for AE recall and to adhere to back precautions) On/Off Footwear (QC): 4 (SBA, VCs for back precautions/AE) Toileting Hygiene (QC): 6 Toilet Transfer (QC): 6 Assessment/Plan Assessment and Plan Assess & Plan/Chief Complaint Assessment: Lumbar stenosis s/p surgery with slow recovery 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
[2023-08-29 08:00] VITALS: BP 124/58
[2023-08-29] MEDS: FAMOTIDINE 20 MG TABLET PO SCH (08:21)
[2023-08-29] MEDS: TAMSULOSIN 0.4 MG (FLOMAX) CAP PO SCH (08:21)
[2023-08-29] MEDS: LORATADINE 10 MG TABLET PO SCH (08:21)
[2023-08-29] MEDS: DOCUSATE SODIUM 100 MG CAPSULE PO SCH ×2 (08:21→21:40)
[2023-08-29] MEDS: ENALAPRIL 10 MG TABLET PO SCH ×2 (08:21→21:40)
[2023-08-29] MEDS: SENNA W/DOCUSATE TABLET PO SCH ×2 (08:21→21:40)
[2023-08-29] MEDS: OMEGA 3 (FISH OIL) 1000 MG CAP PO SCH ×2 (08:21→21:39)
[2023-08-29] MEDS: ACETAMINOPHEN 500 MG TABLET PO SCH ×2 (08:21→21:40)
[2023-08-29] MEDS: DICLOFENAC 1% GEL 50 GM TUBE TOP SCH ×4 (08:22→21:39)
[2023-08-29] MEDS: BRIMONIDINE 0.2% OPHTH SOLN 5 ML BTL OP SCH ×2 (08:23→21:39)
[2023-08-29] MEDS: ONDANSETRON 4 MG ORAL DISSOLVE TABLET PO PRN ×2 (13:00→19:45)
[2023-08-29] MEDS: ACETAMINOPHEN 325 MG TABLET PO PRN (16:04)
[2023-08-29] MEDS: CALCIUM CARBONATE 500 MG CHEW TABLET PO PRN (18:28)
[2023-08-29 20:00] VITALS: BP 107/61
[2023-08-29] MEDS: PANTOPRAZOLE 20 MG TABLET PO SCH (21:40)
[2023-08-29] MEDS: ALPRAZolam 0.25 MG TABLET PO PRN (21:40)
[2023-08-29] MEDS: MELATONIN 3 MG TABLET PO PRN (21:40)
[2023-08-30] MEDS: HYDROcodone/ACETAMINOPHEN 10/325 TABLET PO PRN (01:03)
[2023-08-30] MEDS: oxyCODONE IMMEDIATE RELEASE 5 MG TABLET PO PRN ×2 (05:16→21:40)
[2023-08-30 07:22] VITALS: BP 127/66
[2023-08-30] MEDS: DOCUSATE SODIUM 100 MG CAPSULE PO SCH ×2 (09:05→21:40)
[2023-08-30] MEDS: ACETAMINOPHEN 500 MG TABLET PO SCH ×2 (09:05→21:40)
[2023-08-30] MEDS: BRIMONIDINE 0.2% OPHTH SOLN 5 ML BTL OP SCH ×2 (09:05→21:39)
[2023-08-30] MEDS: SENNA W/DOCUSATE TABLET PO SCH ×2 (09:06→21:40)
[2023-08-30] MEDS: FAMOTIDINE 20 MG TABLET PO SCH (09:06)
[2023-08-30] MEDS: ENALAPRIL 10 MG TABLET PO SCH ×2 (09:06→21:39)
[2023-08-30] MEDS: LORATADINE 10 MG TABLET PO SCH (09:06)
[2023-08-30] MEDS: TAMSULOSIN 0.4 MG (FLOMAX) CAP PO SCH (09:06)
[2023-08-30] MEDS: OMEGA 3 (FISH OIL) 1000 MG CAP PO SCH ×2 (09:06→21:40)
[2023-08-30] MEDS: DICLOFENAC 1% GEL 50 GM TUBE TOP SCH ×4 (09:06→21:39)
--- NOTE | 2023-08-30 10:12 | PM&R Progress Note ---
Subjective HPI/CC On Admission Date Seen by Provider: Aug 30, 2023 Time Seen by Provider: 12:00 Subjective/Events-last exam 08/30/2023: Improved Ready for DC Thursday No falls No pain except right leg 08/29/2023: Patient doing well Less pain Moving around really well 08/28/2023: Patient doing well Moved to independent room 226 No major concerns Pain is controlled and getting better 08/27/2023: Doing better Less pain Didn't sleep as well as night before No falls BM+ 08/26/2023: Doing better Bone biopsy no evidence of cancer Reviewed meds and labs 08/25/2023: Patient doing pretty well Making some progress Pain is still present in the right leg Awaiting bone biopsy results 08/24/2023: About the same except drowsy from Oxycodone No BM yet so will initiate supp and more laxatives Reviewed meds 08/23/2023: Patient doing much better Oxycodone had help with the pain last night and he did sleep Talking more about his right leg and right leg pain 08/22/2023: Patient had a lot more pain Did not get to sleep very much Labs are stable Bowels have not moved so we will initiate meds for that Added oxycodone and increased dose of hydrocodone Review of Systems General: Fatigue, Malaise Objective Exam Vital Signs Vital Signs Date Time Temp Pulse Resp B/P (MAP) Pulse Ox O2 Delivery O2 Flow Rate FiO2 08/30/23 08:00 Room Air 08/30/23 07:22 35.0 74 14 127/66 (86) 95 Capillary Refill : General Appearance: No Apparent Distress, WD/WN, Chronically ill HEENT: PERRL/EOMI, Normal ENT Inspection, Pharynx Normal Neck: Full Range of Motion, Normal Inspection, Non Tender, Supple, Carotid Bruit Respiratory: Chest Non Tender, Lungs Clear, Normal Breath Sounds, No Accessory Muscle Use, No Respiratory Distress Cardiovascular: Regular Rate, Rhythm, No Edema, No Gallop, No JVD, No Murmur, Normal Peripheral Pulses Gastrointestinal: Normal Bowel Sounds, No Organomegaly, No Pulsatile Mass, Non Tender, Soft Back: Normal Inspection, No CVA Tenderness, No Vertebral Tenderness Extremity: Normal Capillary Refill, Normal Inspection, Normal Range of Motion, Non Tender, No Calf Tenderness, No Pedal Edema Neurologic/Psychiatric: Alert, Oriented x3, investment associate II-XII Norm as Tested, Abnormal Gait, Depressed Affect, Motor Weakness (right leg 3/5) Skin: Normal Color, Warm/Dry Lymphatic: No Adenopathy Results/Procedures Lab Patient resulted labs reviewed. FIM Transfers Therapy Code Descriptions/Definitions Functional [place] Measure: 0=Not Assessed/NA 4=Minimal Assistance 1=Total Assistance 5=Supervision or Setup 2=Maximal Assistance 6=Modified [place] 3=Moderate Assistance 7=Complete IndependenceSCALE: Activities may be completed with or without assistive devices. 8-Xhsgtwikdn-tocpqyi completes the activity by him/herself with no assistance from a helper. 5-Set-up or Clean-up Assistance-helper sets up or cleans up; patient completes activity. [place] assists only prior to or following the activity. 4-Supervision or Touching Assistance-helper provides verbal cues and/or touching/steadying and/or contact guard assistance as patient completes activity. Assistance may be provided throughout the activity or intermittently. 3-Partial/Moderate Assistance-helper does LESS THAN HALF the effort. [place] lifts, holds or supports trunk or limbs, but provides less than half the effort. 2-Substantial/Maximal Assistance-helper does MORE THAN HALF the effort. [place] lifts or holds trunk or limbs and provides more than half the effort. 2-Nuyayrdny-rfeudp does ALL the effort. Patient does none of the effort to complete the activity. Or, the assistance of 2 or more helpers is required for the patient to complete the activity. If activity was not attempted, code reason: 7-Patient Refused. 9-Not Applicable-not attempted and the patient did not perform the activity before the current illness, exacerbation or injury. 10-Not Attempted due to Environmental Limitations-(lack of equipment, weather restraints, etc.). 88-Not Attempted due to Medical Conditions or Safety Concerns. Roll Left to Right (QC): 3 (min-mod(A) with v.c. and instruction for log rolling) Sit to Lying (QC): 4 (Pt uses bed cane) Sit to Stand (QC): 4 Chair/Qyk-zg-Jhaow Xfer(QC): 4 Car Transfer (QC): 3 Gait Training Does the Patient Walk?: Yes Distance: 157', 92' Walk 10 feet (QC): 4 Walk 50 ft with 2 Turns(QC): 4 Walk 150 ft (QC): 4 Walking 10ft/uneven surface-QC: 3 Gait Persons Needed: 1 Gait Assistive Device: FWW Wheelchair Training Does the Pt Use a Wheelchair?: No Wheel 50 ft with 2 turns (QC): 9 Wheel 150 ft (QC): 9 Type of Wheelchair: N/A Stair Training #of Steps: 5 1 Step (curb) (QC): 3 4 Steps (QC): 3 (/c (B) rails and max v.c. for correct sequencing (up with left, down with right)) 12 Steps (QC): 3 Balance Picking up an Object (QC): 88 ADL-Treatment Eating (QC): 6 Oral Hygiene (QC): 6 Shower/Bathe Self (QC): 4 (SBA, VCs for adhering to back precautions with washing/drying LEs.) Upper Body Dressing (QC): 5 (Dons/doffs TLSO and upper body clothing by self after set up.) Lower Body Dressing (QC): 4 (SBA, VCs for AE recall and to adhere to back precautions) On/Off Footwear (QC): 4 (SBA, VCs for back precautions/AE) Toileting Hygiene (QC): 6 Toilet Transfer (QC): 6 Assessment/Plan Assessment and Plan Assess & Plan/Chief Complaint Assessment: Lumbar stenosis s/p surgery with slow recovery 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
[2023-08-30] MEDS ORDERED: ARTIFICIAL TEARS Ophth solution 0.4 ML UNIT DOSE OD PRN (12:00)
[2023-08-30] MEDS: ONDANSETRON 4 MG ORAL DISSOLVE TABLET PO PRN (13:32)
[2023-08-30] MEDS: ACETAMINOPHEN 325 MG TABLET PO PRN ×2 (16:10→16:11)
[2023-08-30 19:32] VITALS: BP 130/70
[2023-08-30] MEDS: ALPRAZolam 0.25 MG TABLET PO PRN (21:39)
[2023-08-30] MEDS: PANTOPRAZOLE 20 MG TABLET PO SCH (21:40)
[2023-08-30] MEDS: MELATONIN 3 MG TABLET PO PRN (21:40)
[2023-08-31] MEDS: HYDROcodone/ACETAMINOPHEN 10/325 TABLET PO PRN ×2 (00:52→22:24)
--- NOTE | 2023-08-31 05:02 | PM&R Progress Note ---
Subjective HPI/CC On Admission Date Seen by Provider: Aug 31, 2023 Time Seen by Provider: 08:30 Subjective/Events-last exam 08/31/2023: Patient ready for discharge tomorrow Pain is controlled Daughter will come and pick him up 08/30/2023: Improved Ready for DC Thursday No falls No pain except right leg 08/29/2023: Patient doing well Less pain Moving around really well 08/28/2023: Patient doing well Moved to independent room 226 No major concerns Pain is controlled and getting better 08/27/2023: Doing better Less pain Didn't sleep as well as night before No falls BM+ 08/26/2023: Doing better Bone biopsy no evidence of cancer Reviewed meds and labs 08/25/2023: Patient doing pretty well Making some progress Pain is still present in the right leg Awaiting bone biopsy results 08/24/2023: About the same except drowsy from Oxycodone No BM yet so will initiate supp and more laxatives Reviewed meds 08/23/2023: Patient doing much better Oxycodone had help with the pain last night and he did sleep Talking more about his right leg and right leg pain 08/22/2023: Patient had a lot more pain Did not get to sleep very much Labs are stable Bowels have not moved so we will initiate meds for that Added oxycodone and increased dose of hydrocodone Review of Systems General: Fatigue, Malaise Musculoskeletal: leg pain Objective Exam Vital Signs Vital Signs Date Time Temp Pulse Resp B/P (MAP) Pulse Ox O2 Delivery O2 Flow Rate FiO2 08/31/23 21:10 95 Room Air 08/31/23 20:48 36.8 98 16 139/66 (90) Capillary Refill : General Appearance: No Apparent Distress, WD/WN, Chronically ill HEENT: PERRL/EOMI, Normal ENT Inspection, Pharynx Normal Neck: Full Range of Motion, Normal Inspection, Non Tender, Supple, Carotid Bruit Respiratory: Chest Non Tender, Lungs Clear, Normal Breath Sounds, No Accessory Muscle Use, No Respiratory Distress Cardiovascular: Regular Rate, Rhythm, No Edema, No Gallop, No JVD, No Murmur, Normal Peripheral Pulses Gastrointestinal: Normal Bowel Sounds, No Organomegaly, No Pulsatile Mass, Non Tender, Soft Back: Normal Inspection, No CVA Tenderness, No Vertebral Tenderness Extremity: Normal Capillary Refill, Normal Inspection, Normal Range of Motion, Non Tender, No Calf Tenderness, No Pedal Edema Neurologic/Psychiatric: Alert, Oriented x3, moss picker II-XII Norm as Tested, Abnormal Gait, Depressed Affect, Motor Weakness (right leg 3/5) Skin: Normal Color, Warm/Dry Lymphatic: No Adenopathy Results/Procedures Lab Laboratory Tests 08/31/23 05:22 Patient resulted labs reviewed. FIM Transfers Therapy Code Descriptions/Definitions Functional [place] Measure: 0=Not Assessed/NA 4=Minimal Assistance 1=Total Assistance 5=Supervision or Setup 2=Maximal Assistance 6=Modified [place] 3=Moderate Assistance 7=Complete IndependenceSCALE: Activities may be completed with or without assistive devices. 1-Fghltnxnje-obhjhlx completes the activity by him/herself with no assistance from a helper. 5-Set-up or Clean-up Assistance-helper sets up or cleans up; patient completes activity. [place] assists only prior to or following the activity. 4-Supervision or Touching Assistance-helper provides verbal cues and/or touching /steadying and/or contact guard assistance as patient completes activity. Assistance may be provided throughout the activity or intermittently. 3-Partial/Moderate Assistance-helper does LESS THAN HALF the effort. [place] lifts, holds or supports trunk or limbs, but provides less than half the effort. 2-Substantial/Maximal Assistance-helper does MORE THAN HALF the effort. [place] lifts or holds trunk or limbs and provides more than half the effort. 8-Rcqvyzvvz-iwqyke does ALL the effort. Patient does none of the effort to complete the activity. Or, the assistance of 2 or more helpers is required for the patient to complete the activity. If activity was not attempted, code reason: 7-Patient Refused. 9-Not Applicable-not attempted and the patient did not perform the activity before the current illness, exacerbation or injury. 10-Not Attempted due to Environmental Limitations-(lack of equipment, weather restraints, etc.). 88-Not Attempted due to Medical Conditions or Safety Concerns. Roll Left to Right (QC): 3 (min-mod(A) with v.c. and instruction for log rolling) Sit to Lying (QC): 4 (Pt uses bed cane) Sit to Stand (QC): 4 Chair/Jpd-is-Pafhw Xfer(QC): 4 Car Transfer (QC): 3 Gait Training Does the Patient Walk?: Yes Distance: 157', 92' Walk 10 feet (QC): 4 Walk 50 ft with 2 Turns(QC): 4 Walk 150 ft (QC): 4 Walking 10ft/uneven surface-QC: 3 Gait Persons Needed: 1 Gait Assistive Device: FWW Wheelchair Training Does the Pt Use a Wheelchair?: No Wheel 50 ft with 2 turns (QC): 9 Wheel 150 ft (QC): 9 Type of Wheelchair: N/A Stair Training #of Steps: 5 1 Step (curb) (QC): 3 4 Steps (QC): 3 (/c (B) rails and max v.c. for correct sequencing (up with left, down with right)) 12 Steps (QC): 3 Balance Picking up an Object (QC): 88 ADL-Treatment Eating (QC): 6 Oral Hygiene (QC): 6 Shower/Bathe Self (QC): 4 (SBA, VCs for adhering to back precautions with washing/drying LEs.) Upper Body Dressing (QC): 5 (Dons/doffs TLSO and upper body clothing by self after set up.) Lower Body Dressing (QC): 4 (SBA, VCs for AE recall and to adhere to back precautions) On/Off Footwear (QC): 4 (SBA, VCs for back precautions/AE) Toileting Hygiene (QC): 6 Toilet Transfer (QC): 6 Assessment/Plan Assessment and Plan Assess & Plan/Chief Complaint Assessment: Lumbar stenosis s/p surgery with slow recovery 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
[2023-08-31 06:10] LABS: BASOPHILS % (AUTO) 1 % (0-10); EOSINOPHILS # (AUTO) 0.2 10^3/uL (0.0-0.3); EOSINOPHILS % (AUTO) 4 % (0-10); HEMATOCRIT 35 % (40-54); HEMOGLOBIN 11.3 g/dL (13.3-17.7); LYMPHOCYTES # (AUTO) 1.4 10^3/uL (1.0-4.0); LYMPHOCYTES % (AUTO) 23 % (12-44); MEAN CORPUSCULAR HEMOGLOBIN 31 pg (25-34); MEAN CORPUSCULAR HGB CONC 33 g/dL (32-36); MEAN CORPUSCULAR VOLUME 95 fL (80-99); MEAN PLATELET VOLUME 8.9 fL (9.0-12.2); MONOCYTES # (AUTO) 0.8 10^3/uL (0.0-1.0); MONOCYTES % (AUTO) 14 % (0-12); NEUTROPHILS # (AUTO) 3.6 10^3/uL (1.8-7.8); NEUTROPHILS % (AUTO) 59 % (42-75); PLATELET COUNT 203 10^3/uL (130-400); WHITE BLOOD COUNT 6.1 10^3/uL (4.3-11.0)
[2023-08-31 06:29] LABS: ALBUMIN 3.6 GM/DL (3.2-4.5); BILIRUBIN,TOTAL 0.8 MG/DL (0.1-1.0); CALCIUM 9.3 MG/DL (8.5-10.1); CREATININE SERUM 1.05 MG/DL (0.60-1.30); POTASSIUM 4.2 MMOL/L (3.6-5.0); TOTAL PROTEIN 6.3 GM/DL (6.4-8.2)
[2023-08-31 08:00] VITALS: BP 141/99
[2023-08-31] MEDS: TAMSULOSIN 0.4 MG (FLOMAX) CAP PO SCH (08:39)
[2023-08-31] MEDS: FAMOTIDINE 20 MG TABLET PO SCH (08:39)
[2023-08-31] MEDS: OMEGA 3 (FISH OIL) 1000 MG CAP PO SCH ×2 (08:39→22:26)
[2023-08-31] MEDS: LORATADINE 10 MG TABLET PO SCH (08:39)
[2023-08-31] MEDS: ACETAMINOPHEN 500 MG TABLET PO SCH ×2 (08:40→22:23)
[2023-08-31] MEDS: ENALAPRIL 10 MG TABLET PO SCH ×2 (08:40→22:22)
[2023-08-31] MEDS: ALPRAZolam 0.25 MG TABLET PO PRN ×2 (08:40→22:24)
[2023-08-31] MEDS: BRIMONIDINE 0.2% OPHTH SOLN 5 ML BTL OP SCH ×2 (08:41→22:22)
[2023-08-31] MEDS: DOCUSATE SODIUM 100 MG CAPSULE PO SCH ×2 (08:48→22:15)
[2023-08-31] MEDS: SENNA W/DOCUSATE TABLET PO SCH ×2 (08:49→22:15)
[2023-08-31] MEDS: DICLOFENAC 1% GEL 50 GM TUBE TOP SCH ×4 (09:00→22:22)
--- NOTE | 2023-08-31 10:32 | Physical Therapy Daily Note ---
PT Daily Note-Current Subjective Pt in BR upon arrival. Pt agrees to PT for QC scoring for anticipate d/c for tomorrow. Pain Numeric Pain Scale: 5-Moderate Pain Location: Right Location Body Site: Hip Pain Description: Ache Section J - Health Conditions 1. Rarely or not at all 2. Occasionally 3. Frequently 4. Almost constantly 8. Unable to answer Pain Effect on Sleep: 3 Pain Interference with Therapy: 2 Pain Interference w/Day-to-Day: 3 Mental Status Patient Orientation: Person, Place, Time, Situation Attachments: Other-See Comments (TLSO Brace ) Transfers SCALE: Activities may be completed with or without assistive devices. 9-Svtfaramhx-xjulcld completes the activity by him/herself with no assistance from a helper. 5-Set-up or Clean-up Assistance-helper sets up or cleans up; patient completes activity. [place] assists only prior to or following the activity. 4-Supervision or Touching Assistance-helper provides verbal cues and/or touching/steadying and/or contact guard assistance as patient completes activity. Assistance may be provided throughout the activity or intermittently. 3-Partial/Moderate Assistance-helper does LESS THAN HALF the effort. [place] lifts, holds or supports trunk or limbs, but provides less than half the effort. 2-Substantial/Maximal Assistance-helper does MORE THAN HALF the effort. [place] lifts or holds trunk or limbs and provides more than half the effort. 6-Xgkobqgjm-hkxnrj does ALL the effort. Patient does none of the effort to complete the activity. Or, the assistance of 2 or more helpers is required for the patient to complete the activity. If activity was not attempted, code reason: 7-Patient Refused. 9-Not Applicable-not attempted and the patient did not perform the activity before the current illness, exacerbation or injury. 10-Not Attempted due to Environmental Limitations-(lack of equipment, weather restraints, etc.). 88-Not Attempted due to Medical Conditions or Safety Concerns. Roll Left & Right (QC): 6 Sit to Lying (QC): 6 Lying to Sitting/Side of Bed(Q: 6 Sit to Stand (QC): 6 Chair/Kjf-ic-Cfjur Xfer(QC): 6 Toilet Transfer (QC): 6 Car Transfer (QC): 6 Weight Bearing Right Lower Extremity: Right Weight Bearing/Tolerated Left Lower Extremity: Left Weight Bearing/Tolerated Gait Training Does the Patient Walk?: Yes Distance: 253' Walk 10 feet (QC): 6 Walk 50 ft with 2 Turns(QC): 6 Walk 150 ft (QC): 6 Walking 10ft/uneven surface-QC: 6 Gait Assistive Device: FWW Wheelchair Training Does the Pt Use a Wheelchair?: No Wheel 50 ft with 2 turns (QC): 9 Wheel 150 ft (QC): 9 Stair Training Stair Training: Handrails/: 2 handrails #of Steps: 12 1 Step (curb) (QC): 6 4 Steps (QC): 6 12 Steps (QC): 6 Stairs: Pattern: Step to Balance Picking up an Object (QC): 6 Treatments Pt completes QC scoring items listed above including bed mobility, transfers, car transfer, and stairs. Pt returns to room to rest in recliner at end of tx. All needs met, call light in hand. Assessment Current Status: Good Progress Pt has improved with transfers and mobility. PT Short Term Goals Short Term Goals Time Frame: Aug 28, 2023 Roll Left & Right: 5 Sit to lyin Lying to sitting on side of be: 5 Sit to stand: 5 Chair/afe-nb-xnuah transfer: 5 Toilet transfer: 5 Car transfer: 5 Walk 10 feet: 5 Walk 50 feet with two turns: 5 Walk 150 feet: 5 Walking 10ft on uneven surface: 5 1 step (curb): 5 4 steps: 5 12 steps: 5 Picking up objects: 5 Does pt use a wc or scooter: No Wheel 50ft w/2 turns: 9 Wheel 150 feet: 9 Type: N/A PT Alf Goals Power Wood Sawyer Goals PT Power Wood Sawyer Goals Time Frame: Sep 04, 2023 Roll Left & Right (QC): 6 Sit to Lying (QC): 6 Lying-Sitting on Side/Bed(QC): 6 Sit to Stand (QC): 6 Chair/Ede-fe-Smsnc Xfer(QC): 6 Toilet Transfer (QC): 6 Car Transfer (QC): 6 Does the Patient Walk: Yes Walk 10 feet (QC): 6 Walk 50ft with 2 Turns (QC): 6 Walk 150 ft (QC): 6 Walking 10ft on Uneven Surface: 6 1 Step (curb) (QC): 6 4 Steps (QC): 6 12 Steps (QC): 6 Picking up an Object (QC): 6 Does the Pt use WC or Scooter?: No Wheel 50 feet with 2 turns (QC: 9 Type: N/A Wheel 150 feet: 9 Type: N/A PT Plan Treatment/Plan Treatment Plan: Continue Plan of Care Treatment Plan: Bed Mobility, Education, Functional Activity Romeo, Functional Strength, Group Therapy, Gait, Safety, Therapeutic Exercise, Transfers Treatment Duration: Aug 21, 2023 Frequency: At least 5 of 7 days/Wk (IRF) Estimated Hrs Per Day: 1.5 hours per day Patient and/or Family Agrees t: Yes Time Time In: 0900 Time Out: 1000 DATE: Aug 31, 2023 Total Billed Treatment Time: 60 Total Billed Treatment 1, GT x2 (30m) & FA x2 (30m) RUDDY HENNING AGRICULTURAL MECHANIC Aug 31, 2023 10:32
--- NOTE | 2023-08-31 11:52 | Occupational Ther Daily Note ---
OT Current Status-Daily Note Subjective Pt agreeable to OT tx, states he is ready to discharge tomorrow. Mental Status/Objective Patient Orientation: Normal For Age Attachments: Other-See Comments (back brace) ADL-Treatment Therapy Code Descriptions/Definitions Functional [place] Measure: 0=Not Assessed/NA 4=Minimal Assistance 1=Total Assistance 5=Supervision or Setup 2=Maximal Assistance 6=Modified [place] 3=Moderate Assistance 7=Complete IndependenceSCALE: Activities may be completed with or without assistive devices. 3-Cxjmxdagsk-oyricny completes the activity by him/herself with no assistance from a helper. 5-Set-up or Clean-up Assistance-helper sets up or cleans up; patient completes activity. [place] assists only prior to or following the activity. 4-Supervision or Touching Assistance-helper provides verbal cues and/or touching/steadying and/or contact guard assistance as patient completes activity. Assistance may be provided throughout the activity or intermittently. 3-Partial/Moderate Assistance-helper does LESS THAN HALF the effort. [place] lifts, holds or supports trunk or limbs, but provides less than half the effort. 2-Substantial/Maximal Assistance-helper does MORE THAN HALF the effort. [place] lifts or holds trunk or limbs and provides more than half the effort. 6-Ctujwicxy-gsloti does ALL the effort. Patient does none of the effort to complete the activity. Or, the assistance of 2 or more helpers is required for the patient to complete the activity. If activity was not attempted, code reason: 7-Patient Refused. 9-Not Applicable-not attempted and the patient did not perform the activity before the current illness, exacerbation or injury. 10-Not Attempted due to Environmental Limitations-(lack of equipment, weather restraints, etc.). 88-Not Attempted due to Medical Conditions or Safety Concerns. Eating (QC): 6 Oral Hygiene (QC): 6 Shower/Bathe Self (QC): 4 (Supervision) Upper Body Dressing (QC): 3 (Min A with back brace due to fasteners getting twisted/tangled during doffing.) Lower Body Dressing (QC): 4 (Pt required verbal/tactile cues to adhere to back precautions. ) On/Off Footwear: 4 (Pt required verbal/tactile cues to adhere to back precautions) Toileting Hygiene (QC): 6 Toilet Transfer (QC): 6 Pt required min-mod verbal/tactile cues during lower body ADLs to adhere to back precautions and utilize AE Other Treatment Pt in recliner, used FWW to gather clothes from closet and AE for ADL session (VCs required to gather all AE). Pt transferred into bathroom, onto tub transfer bench. Pt doffed clothes, completed shower using LH sponge, then donned clothes. With LE dressing, pt required min-mod verbal and tactile cues to adhere to back precautions and utilize AE appropriately. Pt often attempted to bend forward to grab items off of the ground, requiring reminder to use security professionals. Pt required minimal assistance donning back brace due to velcro fasteners getting twisted around the brace, and due to brace being too loose when pt donned initially. Pt sat at sink to complete grooming tasks, IND, and completed toileting, IND. Pt used FWW to put away ADL items in cabinets/counters. Pt transferred to recliner. Post tx, pt in recliner, call light in reach and all needs met. Education OT Patient Education: Correct positioning, Energy conservation, Modified ADL techniques, Progress toward Goal/Update tx plan, Purpose of tx/functional activities, Reviewed precautions, Rehab process, Safety issues, Transfer techniques, Use of adapted equipment Teaching Recipient: Patient Teaching Methods: Discussion Response to Teaching: Verbalize Understanding, Reinforcement Needed BIMS CAM BIMS Expression of Ideas and Wants: Without Difficulty Understanding Verbal Content: Understands Brief Interview/Mental Status: Yes IRF YADIRA BIMS: IRF YADIRA BIMS Response (Comments) Value Repitition of Three Words Three 3 Recalls Socks Yes, No Cue Required 2 Recalls Blue Yes, No Cue Required 2 Recalls Bed Yes, After Cueing 1 Year Correct 3 Month Accurate Within 5 Days 2 Day Correct 1 Total 14 Patient Normally Able to Recal: Current Session, Location of own room, That he/she in a hsp Should Staff Asses. Mental St.: No Memory/Recall Ability: Current Season, Location of Own Room, That He/She in Hospit[facility] CAM Mental Status Change/Baseline: 0 Inattention: 0 Disorganized thinkin Altered level of consciousness: 0 OT Nursing Home Goals Motor Vehicle Field Representative Goals Time Frame: Sep 11, 2023 Acute change in mental status: 1 Inattention: 0 Disorganized thinkin Altered level of consciousness: 0 Eating (QC): 6 (met) Oral Hygiene (QC): 6 (met) Toileting Hygiene (QC): 6 (met) Shower/Bathe Self (QC): 5 (not met) Upper Body Dressing (QC): 6 (not met) Lower Body Dressing (QC): 6 (not met) On/Off Footwear (QC): 6 (not met) Additional Goals: 1-Demonstrate ADL Tasks, 2-Verbalize Understanding, 3- ImproveStrength/Romeo 1=Demonstrate adherence to instructed precautions during ADL tasks. 2=Patient will verbalize/demonstrate understanding of assistive devices/mod ifications for ADL. 3=Patient will improve strength/tolerance for activity to enable patient to perform ADL's. OT Education/Plan Problem List/Assessment Assessment: Decreased Activ Tolerance, Decreased Safety Aware, Decreased UE Strength, Impaired Cognition, Impaired I ADL's, Impaired Self-Care Skills Discharge Recommendations Plan/Recommendations: Continue POC Treatment Plan/Plan of Care Patient would benefit from OT for education, treatment and training to promote independence in ADL's, mobility, safety and/or upper extremity function for ADL's. Plan of Care: ADL Retraining, Functional Mobility, Group Exercise/Act as Ind, UE Funct Exercise/Act Treatment Duration: Sep 11, 2023 Frequency: At least 5 of 7 days/Wk (IRF) Estimated Hrs Per Day: Other (75 mins per day) Agreement: Yes Rehab Potential: Good Time Start Time: 10:00 Stop Time: 11:30 DATE: Aug 31, 2023 Total Time Billed (hr/min): 90 Billed Treatment Time 1, ADL 6 JOHAN CORDERO OT Aug 31, 2023 11:52
--- NOTE | 2023-08-31 15:06 | Speech Therapy Daily Note ---
Speech Daily Progress Note Subjective Date Seen by Provider: Aug 31, 2023 Time Seen by Provider: 14:10 The pt was alert with appropriate participation in session. Objective The pt independently recalled back precautions with 3/3 accuracy over spaced trials. Pre-planning and sequencing home activities was targeted. The pt was able to sequence an activity with min assist for listing all steps. He then generated a list of preparatory steps needed prior to beginning activity. The pt required 2-3 repetitions of each activity to fully list pre-planning needs, but eventually achieved good accuracy given multiple repetitions of sequence. Assessment Assessment Current Status: Good Progress Improved recall of precautions, continues to require assist to plan and think through activity completion to maintain compliance with precautions. Speech-Plan Patient/Family Goals Patient/Family Goals: Pt is discharging to home 09/01/23 with home health services Treatment Plan Speech Therapy Treatment Plan: Discontinue ST Treatment Duration: Aug 21, 2023 Frequency: At least 5 of 7 days/Wk (IRF) Estimated Hrs Per Day: Other (30 minutes) Rehab Potential: Good Safety Risks/Education Teaching Recipient: Patient Teaching Methods: Discussion Response to Teaching: Verbalize Understanding, Reinforcement Needed Education Topics Provided: Planning and sequencing activities, adhering to back precautions Discharge Recommendations Home & Family Time Speech Therapy Time In: 14:10 Speech Therapy Time Out: 14:40 DATE: Aug 31, 2023 Total Billed Time: 30 Billed Treatment Time 1 SLTS (30 min) KIA SORIA Aug 31, 2023 15:06
[2023-08-31] MEDS: oxyCODONE IMMEDIATE RELEASE 5 MG TABLET PO PRN (15:57)
[2023-08-31] MEDS: ONDANSETRON 4 MG ORAL DISSOLVE TABLET PO PRN (20:20)
[2023-08-31] MEDS ORDERED: SENN-271 PO (20:37)
[2023-08-31] MEDS ORDERED: ALPR.25T PO (20:37)
[2023-08-31] MEDS ORDERED: OXC5T PO (20:37)
[2023-08-31] MEDS ORDERED: DICL20GE TOP (20:37)
--- NOTE | 2023-08-31 20:39 | D/C HH Face to Face Order ---
D/C HH Face to Face Orders Reconcile Patient Problems Problems Reviewed?: Yes Instructions for Patient HH Patient Instructions/FollowUp: PCP as scheduled Physician to follow Patient: Carlton Discharge Diet for Home: No Restrictions Patient Problems: Lumbar spine surgery Patient Data-Allergies,Ht & Wt Patient Allergies: Coded Allergies: No Known Drug Allergies (Unverified , 04/25/19) Height (Feet): 6 Height (Inches): 2.00 Weight (Pounds): 240 Weight (Ounces): 0.0 Home Health Need/Face to Face Date of Face to Face: Aug 31, 2023 Clinical Findings: Generalized weakness and fatigue, Muscle weakness I have seen Pt kdia-[id number]-rqmt: Yes Discharged To: Home Diagnosis/Conditions: Spine surgery Patient is Homebound due to: [place] fall risk due to instabilty, Muscle weakness Homebound Status Due to the above stated illness, injury or surgical procedure (medical condition or diagnosis) and associated clinical findings, the patient is ho mebound because of his/her inability to leave home except with aid of a supportive device and/or person AND leaving the home requires a considerable and taxing effort or is medically contraindicated. Pt req the following assistanc: Walker Home Health Nursing Orders Home Health Services Order: Nursing Services, Head Machine Feeder-Evaluate & Treat, Physical Therapy-Evaluate & Treat Certify Stmt I certify that this patient is under my care and that I, a nurse practitioner or a physician; a construction administrative assistant working with me, had a face to face encounter that - meets the physician face to face encounter requirements with this patient as dated. ROSAURA HOPPER DO Aug 31, 2023 20:39
[2023-08-31 20:48] VITALS: BP 139/66
[2023-08-31] MEDS: PANTOPRAZOLE 20 MG TABLET PO SCH (22:23)
[2023-08-31] MEDS: MELATONIN 3 MG TABLET PO PRN (22:24)
[2023-09-01] MEDS: oxyCODONE IMMEDIATE RELEASE 5 MG TABLET PO PRN (01:27)
--- NOTE | 2023-09-01 07:58 | Therapy Team Discharge Summary ---
Therapy Discharge Summary Discharge Recommendations Date of Discharge Therapy D/C Recommendations: Home w/ Family Support, Occupational Therapy Home Care Physical Therapy Roll Left to Right (QC): 6 Sit to Lying (QC): 6 Lying to Sitting/Side of Bed(Q: 6 Sit to Stand (QC): 6 Chair/Pmu-sn-Bcpnj Xfer(QC): 6 Toilet Transfer (QC): 5 Car Transfer (QC): 6 Does the Patient Walk: Yes Mode of Locomotion: Walk Anticipated Mode of Locomotion: Walk Walk 10 feet (QC): 6 Walk 50 ft with 2 Turns(QC): 6 Walk 150 ft (QC): 6 Walking 10ft on uneven surface: 6 Distance: 150' Gait Assistive Device: FWW Does the Pt Use a Wheelchair: No Wheel 50 ft with 2 turns (QC): 9 Wheel 150 ft (QC): 9 Type of Wheelchair: N/A #of Steps: 12 1 Step (curb) (QC): 6 4 Steps (QC): 6 12 Steps (QC): 6 Balance Sitting Static: Normal Balance Sitting Dynamic: Good Balance-Standing Static: Poor Picking up an Object (QC): 6 Occupational Therapy Pt admitted to ARU with lumbar stenosis s/p lami. At [facility], pt was independent with ADLs and functional mobility, using FWW or cane ~1 month prior to surgery. Upon initial evaluation, pt was independent with eating, required set up with oral care, and min-mod A with showering, UBD, LBD, footwear and toileting. OT tx focused on increasing BUE strength and activity tolerance, and increasing safety and independence with ADLs and functional mobility. Pt made progress towards goals, but only attained LTGs for eating, oral care and toileting. Pt did not attain LTGs for showering, UBD/LBD and footwear due to VCS required to maintain back precautions and utilize AE. Pt discharging home with family support, d/c from OT. Decreased Activ Tolerance, Decreased Safety Aware, Decreased UE Strength, Impaired Cognition, Impaired I ADL's, Impaired Self-Care Skills Eating (QC): 6 Oral Hygiene (QC): 6 Shower/Bathe Self (QC): 4 (Supervision) Upper Body Dressing (QC): 3 (Min A with back brace due to fasteners getting twisted/tangled during doffing.) Lower Body Dressing (QC): 4 (Pt required verbal/tactile cues to adhere to back precautions. ) On/Off Footwear (QC): 4 (Pt required verbal/tactile cues to adhere to back precautions) Toileting Hygiene (QC): 6 PT Net Software Architect Goals Net Software Architect Goals PT Net Software Architect Goals Time Frame: Sep 04, 2023 Roll Left to Right (QC): 6 Sit to Lying (QC): 6 Lying-Sitting on Side/Bed(QC): 6 Sit to Stand (QC): 6 Chair/Fvm-jy-Myhga Xfer(QC): 6 Toilet/Commode Transfer (QC): 6 Car Transfer (QC): 6 Does the Patient Walk: Yes Walk 10 feet (QC): 6 Walk 10ft-Uneven Surface(QC): 6 Walk 50ft with 2 Turns (QC): 6 Walk 150 ft (QC): 6 Does the Pt use WC or Scooter?: No Wheel 50 feet with 2 turns (QC: 9 Type: N/A Wheel 150 feet: 9 Type: N/A 1 Step (curb) (QC): 6 4 Steps (QC): 6 12 Steps (QC): 6 Picking up an Object (QC): 6 OT Residential Goals Net Software Architect Goals Time Frame: Sep 11, 2023 Acute change in mental status: 0 Inattention: 0 Disorganized thinkin Altered level of consciousness: 0 Eating (QC): 6 (met) Oral Hygiene (QC): 6 (met) Toileting Hygiene (QC): 6 (met) Shower/Bathe Self (QC): 5 (not met) Upper Body Dressing (QC): 6 (not met) Lower Body Dressing (QC): 6 (not met) On/Off Footwear (QC): 6 (not met) Additional Goals: 1-Demonstrate ADL Tasks, 2-Verbalize Understanding, 3- ImproveStrength/Romeo 1=Demonstrate adherence to instructed precautions during ADL tasks. 2=Patient will verbalize/demonstrate understanding of assistive devices/modifications for ADL. 3=Patient will improve strength/tolerance for activity to enable patient to perform ADL's. JOHAN CORDERO OT Sep 01, 2023 07:57
--- NOTE | 2023-09-01 08:29 | Therapy Team Discharge Summary ---
Therapy Discharge Summary Discharge Recommendations Date of Discharge Therapy D/C Recommendations: Home w/ Family Support, Occupational Therapy Home Care Physical Therapy Patient admitted to ARU 08/21/23 s/p lumbar laminectomy on 08/20/23. At the time of D/C, patient continued to utilize TLSO and was (I) with bed mobility using a bed rail, was (I) with transfers using a FWW, and was able to walk 253' /c FWW (I). Patient was able to ascend/descend 12 steps with (B) rails (I) with a step-to pattern. His KU Standing Balance score was a 4/5. 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 It was recommended that he have Home Health PT upon discharge so that further safety/mobility recommendations can be made for the home. Roll Left to Right (QC): 6 Sit to Lying (QC): 6 Lying to Sitting/Side of Bed(Q: 6 Sit to Stand (QC): 6 Chair/Yqh-rk-Oujge Xfer(QC): 6 Toilet Transfer (QC): 6 Car Transfer (QC): 6 Does the Patient Walk: Yes Mode of Locomotion: Walk Anticipated Mode of Locomotion: Walk Walk 10 feet (QC): 6 Walk 50 ft with 2 Turns(QC): 6 Walk 150 ft (QC): 6 Walking 10ft on uneven surface: 6 Distance: 253' Gait Assistive Device: FWW Does the Pt Use a Wheelchair: No Wheel 50 ft with 2 turns (QC): 9 Wheel 150 ft (QC): 9 Type of Wheelchair: N/A #of Steps: 12 1 Step (curb) (QC): 6 4 Steps (QC): 6 12 Steps (QC): 6 Walking Assistive Device: Walker Balance Sitting Static: Normal Balance Sitting Dynamic: Good Balance-Standing Static: Fair Picking up an Object (QC): 6 (/c gis physical scientist) Occupational Therapy Decreased Activ Tolerance, Decreased Safety Aware, Decreased UE Strength, Impaired Cognition, Impaired I ADL's, Impaired Self-Care Skills Eating (QC): 6 Oral Hygiene (QC): 6 Shower/Bathe Self (QC): 4 (Supervision) Upper Body Dressing (QC): 3 (Min A with back brace due to fasteners getting twisted/tangled during doffing.) Lower Body Dressing (QC): 4 (Pt required verbal/tactile cues to adhere to back precautions. ) On/Off Footwear (QC): 4 (Pt required verbal/tactile cues to adhere to back precautions) Toileting Hygiene (QC): 6 PT Retirement Goals Retirement Goals PT Retirement Goals Time Frame: Sep 04, 2023 Roll Left to Right (QC): 6 Sit to Lying (QC): 6 Lying-Sitting on Side/Bed(QC): 6 Sit to Stand (QC): 6 Chair/Myi-an-Zragg Xfer(QC): 6 Toilet/Commode Transfer (QC): 6 Car Transfer (QC): 6 Does the Patient Walk: Yes Walk 10 feet (QC): 6 Walk 10ft-Uneven Surface(QC): 6 Walk 50ft with 2 Turns (QC): 6 Walk 150 ft (QC): 6 Does the Pt use WC or Scooter?: No Wheel 50 feet with 2 turns (QC: 9 Type: N/A Wheel 150 feet: 9 Type: N/A 1 Step (curb) (QC): 6 4 Steps (QC): 6 12 Steps (QC): 6 Picking up an Object (QC): 6 OT Retirement Goals Retirement Goals Time Frame: Sep 11, 2023 Acute change in mental status: 0 Inattention: 0 Disorganized thinkin Altered level of consciousness: 0 Eating (QC): 6 (met) Oral Hygiene (QC): 6 (met) Toileting Hygiene (QC): 6 (met) Shower/Bathe Self (QC): 5 (not met) Upper Body Dressing (QC): 6 (not met) Lower Body Dressing (QC): 6 (not met) On/Off Footwear (QC): 6 (not met) Additional Goals: 1-Demonstrate ADL Tasks, 2-Verbalize Understanding, 3- ImproveStrength/Romeo 1=Demonstrate adherence to instructed precautions during ADL tasks. 2=Patient will verbalize/demonstrate understanding of assistive devices/modifications for ADL. 3=Patient will improve strength/tolerance for activity to enable patient to perform ADL's. Katie Blank PT Sep 01, 2023 08:28
[2023-09-01] MEDS: TAMSULOSIN 0.4 MG (FLOMAX) CAP PO SCH (08:40)
[2023-09-01] MEDS: ACETAMINOPHEN 500 MG TABLET PO SCH (08:40)
[2023-09-01] MEDS: FAMOTIDINE 20 MG TABLET PO SCH (08:40)
[2023-09-01] MEDS: LORATADINE 10 MG TABLET PO SCH (08:40)
[2023-09-01] MEDS: OMEGA 3 (FISH OIL) 1000 MG CAP PO SCH (08:40)
[2023-09-01] MEDS: BRIMONIDINE 0.2% OPHTH SOLN 5 ML BTL OP SCH (08:40)
[2023-09-01] MEDS: DICLOFENAC 1% GEL 50 GM TUBE TOP SCH (08:41)
[2023-09-01] MEDS: DOCUSATE SODIUM 100 MG CAPSULE PO SCH (08:41)
[2023-09-01] MEDS: ENALAPRIL 10 MG TABLET PO SCH (08:41)
[2023-09-01] MEDS: SENNA W/DOCUSATE TABLET PO SCH (08:41)
[2023-09-01 08:44] VITALS: BP 131/66
[2023-09-01 09:36] VITALS: BP 131/66
--- NOTE | 2023-09-01 10:21 | Discharge Summary ---
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 Prostate cancer hx L5 compression fracture s/p bone biopsy HTN EMILE on CPAP Advanced age Plan: BM regimen PT OT Home meds CPAP 08/22/2023: Bowel regimen Increased pain meds 08/23/2023: Pain control Aggressive rehab 08/24/2023: Monitor closely Pain control 08/25/2023: Continue aggressive rehab 08/26/2023: Reassure Increase therapy 08/27/2023: Monitor closely 08/28/2023: Supportive care Monitor closely 08/29/2023: Continue aggressive therapy 08/30/2023: Much improved Ready for DC Thursday08/31/2023: Supportive care (1) Lumbar spinal stenosis Discharge Summary Discharge Physical Examination Allergies: Coded Allergies: No Known Drug Allergies (Unverified , 04/25/19) Vitals & I&Os Vital Signs Date Time Temp Pulse Resp B/P (MAP) Pulse Ox O2 Delivery O2 Flow Rate FiO2 09/01/23 09:36 36.1 80 17 131/66 96 Room Air General Appearance: Alert, Oriented X3, Cooperative Respiratory: Clear to Auscultation Cardiovascular: Regular Rate Psych/Mental Status: Mental Status NL Hospital Course Was the Problem List Reviewed?: Yes Lengthy and uneventful course after he was moved from [facility] after lumbar spine surgery by Dr Barlow due to slow recovery. He had severe pain with limitations but gradually able to overcome the pain and utilized pain meds and was able to slowly regain function in order to DC home with . Labs remained s table as did vitals Labs (last 24 hrs) Laboratory Tests 08/22/23 05:04: White Blood Count 7.4, Red Blood Count 3.69L, Hemoglobin 11.5L, Hematocrit 35L, Mean Corpuscular Volume 95, Mean Corpuscular Hemoglobin 31, Mean Corpuscular Hemoglobin Concent 33, Red Cell Distribution Width 13.5, Platelet Count 177, Mean Platelet Volume 9.1, Immature Granulocyte % (Auto) 1, Neutrophils (%) (Auto) 65, Lymphocytes (%) (Auto) 22, Monocytes (%) (Auto) 11, Eosinophils (%) (Auto) 2, Basophils (%) (Auto) 0, Neutrophils # (Auto) 4.8, Lymphocytes # (Auto) 1.7, Monocytes # (Auto) 0.8, Eosinophils # (Auto) 0.1, Basophils # (Auto) 0.0, Immature Granulocyte # (Auto) 0.0, Sodium Level 139, Potassium Level 4.3, Chloride Level 104, Carbon Dioxide Level 25, Anion Gap 10, Blood Urea Nitrogen 26H, Creatinine 0.93, Estimat Glomerular Filtration Rate 83, BUN/Creatinine Ratio 28, Glucose Level 103, Calcium Level 8.9, Corrected Calcium 9.3, Total Bilirubin 1.2H, Aspartate Amino Transf (AST/SGOT) 15, Alanine Aminotransferase (ALT/SGPT) 9, Alkaline Phosphatase 54, Total Protein 6.1L, Albumin 3.5 08/31/23 05:22: White Blood Count 6.1, Red Blood Count 3.66L, Hemoglobin 11.3L, Hematocrit 35L, Mean Corpuscular Volume 95, Mean Corpuscular Hemoglobin 31, Mean Corpuscular Hemoglobin Concent 33, Red Cell Distribution Width 13.1, Platelet Count 203, Mean Platelet Volume 8.9L, Immature Granulocyte % (Auto) 1, Neutrophils (%) (Auto) 59, Lymphocytes (%) (Auto) 23, Monocytes (%) (Auto) 14H, Eosinophils (%) (Auto) 4, Basophils (%) (Auto) 1, Neutrophils # (Auto) 3.6, Lymphocytes # (Auto) 1.4, Monocytes # (Auto) 0.8, Eosinophils # (Auto) 0.2, Basophils # (Auto) 0.0, Immature Granulocyte # (Auto) 0.0, Sodium Level 137, Potassium Level 4.2, Chloride Level 100, Carbon Dioxide Level 27, Anion Gap 10, Blood Urea Nitrogen 22H, Creatinine 1.05, Estimat Glomerular Filtration Rate 72, BUN/Creatinine Ratio 21, Glucose Level 105, Calcium Level 9.3, Corrected Calcium 9.6, Total Bilirubin 0.8, Aspartate Amino Transf (AST/SGOT) 13, Alanine Aminotransferase (ALT/SGPT) 13, Alkaline Phosphatase 56, Total Protein 6.3L, Albumin 3.6 Pending Labs Laboratory Tests 08/22/23 05:04: White Blood Count 7.4, Red Blood Count 3.69, Hemoglobin 11.5, Hematocrit 35, Mean Corpuscular Volume 95, Mean Corpuscular Hemoglobin 31, Mean Corpuscular Hemoglobin Concent 33, Red Cell Distribution Width 13.5, Platelet Count 177, Mean Platelet Volume 9.1, Immature Granulocyte % (Auto) 1, Neutrophils (%) (Auto ) 65, Lymphocytes (%) (Auto) 22, Monocytes (%) (Auto) 11, Eosinophils (%) (Auto) 2, Basophils (%) (Auto) 0, Neutrophils # (Auto) 4.8, Lymphocytes # (Auto) 1.7, Monocytes # (Auto) 0.8, Eosinophils # (Auto) 0.1, Basophils # (Auto) 0.0, Immature Granulocyte # (Auto) 0.0, Sodium Level 139, Potassium Level 4.3, Chloride Level 104, Carbon Dioxide Level 25, Anion Gap 10, Blood Urea Nitrogen 26, Creatinine 0.93, Estimat Glomerular Filtration Rate 83, BUN/Creatinine Ratio 28, Glucose Level 103, Calcium Level 8.9, Corrected Calcium 9.3, Total Bilirubin 1.2, Aspartate Amino Transf (AST/SGOT) 15, Alanine Aminotransferase (ALT/SGPT) 9, Alkaline Phosphatase 54, Total Protein 6.1, Albumin 3.5 08/31/23 05:22: White Blood Count 6.1, Red Blood Count 3.66, Hemoglobin 11.3, Hematocrit 35, Mean Corpuscular Volume 95, Mean Corpuscular Hemoglobin 31, Mean Corpuscular Hemoglobin Concent 33, Red Cell Distribution Width 13.1, Platelet Count 203, Mean Platelet Volume 8.9, Immature Granulocyte % (Auto) 1, Neutrophils (%) (Auto) 59, Lymphocytes (%) (Auto) 23, Monocytes (%) (Auto) 14, Eosinophils (%) (Auto) 4, Basophils (%) (Auto) 1, Neutrophils # (Auto) 3.6, Lymphocytes # (Auto) 1.4, Monocytes # (Auto) 0.8, Eosinophils # (Auto) 0.2, Basophils # (Auto) 0.0, Immature Granulocyte # (Auto) 0.0, Sodium Level 137, Potassium Level 4.2, Chloride Level 100, Carbon Dioxide Level 27, Anion Gap 10, Blood Urea Nitrogen 22, Creatinine 1.05, Estimat Glomerular Filtration Rate 72, BUN/Creatinine Ratio 21, Glucose Level 105, Calcium Level 9.3, Corrected Calcium 9.6, Total Bilirubin 0.8, Aspartate Amino Transf (AST/SGOT) 13, Alanine Aminotransferase (ALT/SGPT) 13, Alkaline Phosphatase 56, Total Protein 6.3, Albumin 3.6 Discharge Home Medications: Active Scripts Active Stool Softener-Laxative Tablet (Sennosides/Docusate Sodium) 8.6 Mg-50 Mg Tablet 1 Ea PO BID Xanax Tablet (Alprazolam) 0.25 Mg Tab 0.25 Mg PO Q8H PRN Oxyir Tablet (Oxycodone HCl) 5 Mg Tab 5 Mg PO Q6HR PRN Voltaren Arthritis Pain (Diclofenac Sodium) 1 % Gel..gram. 0 Gm TOP QID four times daily Tylenol Extra Strength (Acetaminophen) 500 Mg Powd.pack 500 Mg PO DAILY Coricidin Hbp Cold & Flu Tab (Acetaminophen/Chlorpheniramine) 325 Mg-2 Mg Tablet 1 Each PO DAILY Flomax (Tamsulosin HCl) 0.4 Mg Cap 0.4 Mg PO DAILY Dha From Algae (Docosahexaenoic Acid) 200 Mg Capsule 200 Mg PO DAILY Reported Brimonidine Tartrate 0.2 % Btl 1 Drop OP BID Atorvastatin Calcium 10 Mg Tablet 10 Mg PO HS Fish Oil 1,200 mg Softgel (Sharon-3S/Dha/Epa/Fish Oil) 1 Each Capsule.dr 1,200 Mg PO BID Hydrochlorothiazide 12.5 Mg Tablet 12.5 Mg PO DAILY Acid Cash Applications Manager (FAMOTIDINE) (Famotidine) 20 Mg Tablet 20 Mg PO DAILY Loratadine 10 Mg Tablet 10 Mg PO DAILY Omeprazole 20 Mg Capsule.dr 20 Mg PO HS Enalapril Maleate 20 Mg Tablet 20 Mg PO BID Instructions to patient/family Please see electronic discharge instructions given to patient. Diagnosis/Problems Diagnosis/Problems (1) Lumbar spinal stenosis Clinical Quality Measures DVT/VTE Risk/Contraindication: Contraindications-Pharm: Other *list below* Other: Spinal surgery ROSAURA HOPPER DO Sep 01, 2023 10:21
--- NOTE | 2023-09-01 15:26 | Therapy Team Discharge Summary ---
Therapy Discharge Summary Discharge Recommendations Date of Discharge Sep 01, 2023 at 09:35 Therapy D/C Recommendations: Home w/ Family Support, Occupational Therapy Home Care Physical Therapy Roll Left to Right (QC): 6 Sit to Lying (QC): 6 Lying to Sitting/Side of Bed(Q: 6 Sit to Stand (QC): 6 Chair/[place]ul[place]-Twgsj Xfer(QC): 6 Toilet Transfer (QC): 5 Car Transfer (QC): 6 Does the Patient Walk: Yes Mode of Locomotion: Walk Anticipated Mode of Locomotion: Walk Walk 10 feet (QC): 6 Walk 50 ft with 2 Turns(QC): 6 Walk 150 ft (QC): 6 Walking 10ft on uneven surface: 6 Distance: 150' Gait Assistive Device: FWW Does the Pt Use a Wheelchair: No Wheel 50 ft with 2 turns (QC): 9 Wheel 150 ft (QC): 9 Type of Wheelchair: N/A #of Steps: 12 1 Step (curb) (QC): 6 4 Steps (QC): 6 12 Steps (QC): 6 Balance Sitting Static: Normal Balance Sitting Dynamic: Good Balance-Standing Static: Poor Picking up an Object (QC): 6 Occupational Therapy Decreased Activ Tolerance, Decreased Safety Aware, Decreased UE Strength, Impaired Cognition, Impaired I ADL's, Impaired Self-Care Skills Eating (QC): 6 Oral Hygiene (QC): 6 Shower/Bathe Self (QC): 4 (Supervision) Upper Body Dressing (QC): 3 (Min A with back brace due to fasteners getting twisted/tangled during doffing.) Lower Body Dressing (QC): 4 (Pt required verbal/tactile cues to adhere to back precautions. ) On/Off Footwear (QC): 4 (Pt required verbal/tactile cues to adhere to back precautions) Toileting Hygiene (QC): 6 Speech-Language Pathology At time of discharge, the pt was able to independently recall safety precautions for back, describe application of each precaution, and identify situations in which adaptive equipment is needed in order to adhere to precautions. He continued to require min/mod assist to sequence set-up for ADL tasks to ensure adherence to precautions. Impulsivity during task continued to be observed by other treating therapists despite reinforcement of knowledge of safety precautions. PT Client Partner Goals Client Partner Goals PT Snf Goals Time Frame: Sep 04, 2023 Roll Left to Right (QC): 6 Sit to Lying (QC): 6 Lying-Sitting on Side/Bed(QC): 6 Sit to Stand (QC): 6 Chair/Pqy-zw-Hobjv Xfer(QC): 6 Toilet/Commode Transfer (QC): 6 Car Transfer (QC): 6 Does the Patient Walk: Yes Walk 10 feet (QC): 6 Walk 10ft-Uneven Surface(QC): 6 Walk 50ft with 2 Turns (QC): 6 Walk 150 ft (QC): 6 Does the Pt use WC or Scooter?: No Wheel 50 feet with 2 turns (QC: 9 Type: N/A Wheel 150 feet: 9 Type: N/A 1 Step (curb) (QC): 6 4 Steps (QC): 6 12 Steps (QC): 6 Picking up an Object (QC): 6 OT Client Partner Goals Snf Goals Time Frame: Sep 11, 2023 Acute change in mental status: 0 Inattention: 0 Disorganized thinkin Altered level of consciousness: 0 Eating (QC): 6 (met) Oral Hygiene (QC): 6 (met) Toileting Hygiene (QC): 6 (met) Shower/Bathe Self (QC): 5 (not met) Upper Body Dressing (QC): 6 (not met) Lower Body Dressing (QC): 6 (not met) On/Off Footwear (QC): 6 (not met) Additional Goals: 1-Demonstrate ADL Tasks, 2-Verbalize Understanding, 3-ImproveStrength/Romeo 1=Demonstrate adherence to instructed precautions during ADL tasks. 2=Patient will verbalize/demonstrate understanding of assistive devices/modifications for ADL. 3=Patient will improve strength/tolerance for activity to enable patient to perform ADL's. KIA SORIA Sep 01, 2023 15:26
== END 2023-09-01 09:35 | disposition home health service (06) | DRG 552 ==
PROVIDERS: ADMIT Internal Medicine; ATTEND Internal Medicine
DX: M48.061 Spinal stenosis, lumbar region without neurogenic claudication (principal); M54.16 Radiculopathy, lumbar region; M48.56XD Collapsed vertebra, not elsewhere classified, lumbar region, subsequent encounter for fracture with routine healing; G47.33 Obstructive sleep apnea (adult) (pediatric); I10 Essential (primary) hypertension; K21.9 Gastro-esophageal reflux disease without esophagitis; Z85.46 Personal history of malignant neoplasm of prostate; Z87.891 Personal history of nicotine dependence
CPT/HCPCS: 36415; 80053; 85025